=== PATIENT | female | born 1965 | race Two or more races ===

== ENCOUNTER → 2020-06-01 10:16 | Outpatient (BNVA) | payer MEDICARE, MEDICAID, SELFPAY | PROVIDERS: PCP Internal Medicine; Referring Provider Internal Medicine; Visit Provider Dietitian, Registered | DX: Z76.89 Persons encountering health services in other specified circumstances (principal) ==

== ENCOUNTER → 2020-07-08 10:58 | Outpatient (BNVA) | payer MEDICARE, MEDICAID, SELFPAY | PROVIDERS: PCP Internal Medicine; Visit Provider Dietitian, Registered ==

== ENCOUNTER → 2020-08-05 11:12 | Outpatient (BNVA) | payer MEDICARE, MEDICAID, SELFPAY | PROVIDERS: PCP Internal Medicine; Visit Provider Dietitian, Registered ==

== ENCOUNTER → 2021-04-20 11:00 | Outpatient (BNVA) | payer MEDICARE, MEDICAID, SELFPAY | PROVIDERS: PCP Internal Medicine; Visit Provider Nurse Practitioner Family | DX: M47.816 Spondylosis without myelopathy or radiculopathy, lumbar region (principal); M53.3 Sacrococcygeal disorders, not elsewhere classified; M17.0 Bilateral primary osteoarthritis of knee | CPT/HCPCS: 99202 ==

== ENCOUNTER 2021-05-10 06:34 | Outpatient (REF) | payer MEDICARE, MEDICAID, SELFPAY ==
--- NOTE | ~2021-05-10 | FL_ITS ---
EXAMINATION: XR FLUOROSCOPY WITH IMAGES CLINICAL INFORMATION: M17.0 - Bilateral primary osteoarthritis of knee COMPARISON: None. TECHNIQUE: Fluoroscopy performed by Dr. Kuldeep Calvin. Fluoroscopy time: 0.2 minutes DAP: 2.0 Gycm2 Images: 2 FINDINGS: There are spinal needles adjacent to the distal femoral shaft, medial and lateral sides, mid depth. There is a spinal needle adjacent to the proximal tibia on medial side mid depth. FL/FL guidance in treatment room IMPRESSION: Fluoroscopy for pain management procedures.
== END 2021-05-10 06:35 | disposition home or self-care (01) ==
LOC: HO.RADIR 06:34
PROVIDERS: Visit Provider Anesthesiology
DX: M17.0 Bilateral primary osteoarthritis of knee (principal); M47.816 Spondylosis without myelopathy or radiculopathy, lumbar region; M53.3 Sacrococcygeal disorders, not elsewhere classified
CPT/HCPCS: 64454

== ENCOUNTER → 2021-05-17 10:50 | Outpatient (BNVA) | payer MEDICARE, MEDICAID, SELFPAY | PROVIDERS: PCP Internal Medicine; Visit Provider Nurse Practitioner Family | DX: M47.816 Spondylosis without myelopathy or radiculopathy, lumbar region (principal); M53.3 Sacrococcygeal disorders, not elsewhere classified; M17.0 Bilateral primary osteoarthritis of knee | CPT/HCPCS: 99212 ==

== ENCOUNTER 2021-06-14 05:54 | Outpatient (REF) | payer MEDICARE, MEDICAID, SELFPAY | END 2021-06-14 05:55 | disposition home or self-care (01) | LOC: HO.RADIR 05:54 | PROVIDERS: Visit Provider Anesthesiology | DX: Z13.89 Encounter for screening for other disorder (principal) ==

== ENCOUNTER 2021-06-21 06:51 | Outpatient (REF) | payer MEDICARE, MEDICAID, SELFPAY ==
--- NOTE | ~2021-06-21 | FL_ITS ---
EXAMINATION: XR FLUOROSCOPY WITH IMAGES CLINICAL INFORMATION: Bilateral primary osteoarthritis COMPARISON: None. TECHNIQUE: Fluoroscopy performed by CHANTAL Phillips. Fluoroscopy time: 0.2 minutes DAP: 1.88 Gycm2 Images: 2 FINDINGS: AP and lateral views were obtained and reveals needle position of the medial and lateral cortex distal femur and medial proximal tibial cortex for pain management. There is severe loss of lateral compartment and mild loss of medial and patellofemoral compartment joint space with periarticular spurring. No fracture seen. FL/FL guidance in treatment room IMPRESSION: Moderate to severe degenerative changes lateral and mild degenerative changes patellofemoral and medial compartment right knee. Fluoroscopy was provided for referring physician for pain management.
== END 2021-06-21 06:52 | disposition home or self-care (01) ==
LOC: HO.RADIR 06:51
PROVIDERS: Visit Provider Anesthesiology
DX: M47.816 Spondylosis without myelopathy or radiculopathy, lumbar region (principal); M53.3 Sacrococcygeal disorders, not elsewhere classified; M17.0 Bilateral primary osteoarthritis of knee
CPT/HCPCS: 64454

== ENCOUNTER → 2021-07-27 09:17 | Outpatient (BNVA) | payer MEDICARE, MEDICAID, SELFPAY | PROVIDERS: PCP Internal Medicine; Visit Provider Anesthesiology | DX: M47.816 Spondylosis without myelopathy or radiculopathy, lumbar region (principal); M53.3 Sacrococcygeal disorders, not elsewhere classified; M17.0 Bilateral primary osteoarthritis of knee | CPT/HCPCS: 99212 ==

== ENCOUNTER → 2021-10-18 14:52 | Outpatient (BNVA) | payer MEDICARE, MEDICAID, SELFPAY | PROVIDERS: PCP Internal Medicine; Visit Provider Nurse Practitioner Family | DX: Z13.89 Encounter for screening for other disorder (principal) ==

== ENCOUNTER 2022-01-02 11:51 | Outpatient (REF) | payer MEDICARE, MEDICAID, SELFPAY ==
--- NOTE | ~2022-01-02 | XR_ITS ---
EXAMINATION: XR AP STANDING VIEW OF BOTH KNEES XR SUNRISE AND LATERAL VIEWS OF THE RIGHT KNEE CLINICAL INFORMATION: Pain. COMPARISON: None. TECHNIQUE: AP standing view of both knees and lateral and sunrise views of the right knee. FINDINGS: There is narrowing of the right medial and lateral joint space compartments. There is narrowing of the medial joint space compartment of the left knee. There is spurring seen bilaterally. Lateral and sunrise views of the right knee demonstrate a small suprapatellar effusion. There is degenerative change with prominent spurring about the patellofemoral joint with some narrowing of the medial facet joint and with some articular irregularity undersurface of the patella. XR/XR knee RT 2V IMPRESSION: Significant degenerative change of the right patellofemoral joint. Narrowing with marginal spurring seen involving the right medial and lateral joint space compartments and left medial joint space compartment.
--- NOTE | ~2022-01-02 | XR_ITS ---
EXAMINATION: XR AP STANDING VIEW OF BOTH KNEES XR SUNRISE AND LATERAL VIEWS OF THE RIGHT KNEE CLINICAL INFORMATION: Pain. COMPARISON: None. TECHNIQUE: AP standing view of both knees and lateral and sunrise views of the right knee. FINDINGS: There is narrowing of the right medial and lateral joint space compartments. There is narrowing of the medial joint space compartment of the left knee. There is spurring seen bilaterally. Lateral and sunrise views of the right knee demonstrate a small suprapatellar effusion. There is degenerative change with prominent spurring about the patellofemoral joint with some narrowing of the medial facet joint and with some articular irregularity undersurface of the patella. XR/XR knee standing BI IMPRESSION: Significant degenerative change of the right patellofemoral joint. Narrowing with marginal spurring seen involving the right medial and lateral joint space compartments and left medial joint space compartment.
== END 2022-01-02 11:52 | disposition home or self-care (01) ==
LOC: HO.HOSX 11:51
PROVIDERS: Visit Provider Orthopaedic Surgery
DX: M17.11 Unilateral primary osteoarthritis, right knee (principal); E11.9 Type 2 diabetes mellitus without complications
CPT/HCPCS: 73560; 73565; 99202

== ENCOUNTER → 2022-06-13 09:57 | Outpatient (BNVA) | payer MEDICARE, MEDICAID, SELFPAY | PROVIDERS: PCP Physician Assistant; Visit Provider Orthopaedic Surgery | DX: Z13.89 Encounter for screening for other disorder (principal) ==

== ENCOUNTER 2022-08-25 14:00 | Outpatient (RCR) | payer MEDICARE, MEDICAID, SELFPAY ==
--- NOTE | 2022-06-09 12:33 | MHC.PT.EP ---
[facility] [place] Office [place] Office [place] Office [address] Iman Balderas [address] [phone] F: [phone] F: [phone] F: [phone] F: [phone] Physical Therapy Plan of Care Date of Evaluation: Date of Surgery: Diagnosis: RIGHT KNEE PAIN Assessment: 57 YO FEMALE REF TO PT FOR Rt KNEE PAIN/ OA. SHE IS DISABLED, CURRENTLY AMB W A CANE, AND RESIDES ALONE IN A 2ND FLOOR APT. 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 Pt'S GOAL IS TO LOSE WEIGHT AND ADDRESS STRENGTH/ STABIITY FOR Rt LE W RESPECT TO Rt KNEE Jt SXS W HER ULTIMATE GOAL OF A Rt TKA. OBJECTIVE FINDINGS: LIMITED AND PAINFULL ROM Rt KNEE/ HIP; DECR LUMBOPELVIC/ PROX LE STRENGTH, (+) Rt PF OA INCR PAIN, (+) UEs COMPENSATION WITH TRANSFERS, AND ALTERED GAIT MECHANICS WITH A CANE. Pt WOULD BENEFIT FROM A TRIAL OF PT TO ADDRESS THE ABOVE FINDINGS, DEV A HEP, AND POSSIBLY IMPROVE GAIT EFFICIENCY/ FUNCT MOB. Frequency and Duration: The patient will be seen 2 x WK x 5 WKS Short Term Goals: *DECR Rt KNEE PAIN IMPROVE LEs USAGE W TRANSFERS/ TRANSITIONAL MVMTS *INITIATE HEP *IMPROVE Rt HS/ CALF/ PSOAS SOFT TISSUE FLEXIB Welcome Hostess Goals: *Pt INDEP W PROGR HEP AND SELF-SX MGMT STRATEGIES *Pt DEMON IMPROVED EFFICIENCY OF GAIT MECH AND TRANSFERS *IMPROVED LEFI SCORE (AT EVAL ) Treatment Plan: Modalities to reduce pain, spasms and effusion. Manual therapy to restore motion and function. Therapeutic exercise to improve strength and flexibility. Neuromuscular re-education for posture and balance. Therapeutic activities to return to functional activities of daily living. Electronically signed by: BERNARDO EARLYPT Please sign and return to therapist. Thank you for your referral.
--- NOTE | 2022-08-25 15:12 | MHC.PT.DC ---
[facility] [place] Office [place] Office [place] Office [address] Iman Balderas [address] [phone] F: [phone] F: [phone] F: [phone] F: [phone] Physical Therapy Discharge Report Diagnosis: RIGHT KNEE PAIN Date of Surgery: Date of Evaluation: 06/09/22 Date of Discharge: 08/25/22 Treatments to Date: 15 Cancellations to Date: 7 No Shows to Date: 0 Discharge Status: Achieved Goals Improved Function Independent with HEP Discharge Summary: Pt MET HER PT GOALS TO MAX POTENTIAL AT THIS TIME-> SHE DEMON IMPROVED LE AND LUMBOPELVIC STRENGTH, MORE EFFICIENT GAIT (LEVEL AND STAIRS) AND TRANSFERS- SHE IS INDEP AND COMPLIANT W HER HEP AND DEMON IMPROVED LEFI SCORE. ALTHOUGH SHE HAS RESIDUAL Rt PF/ KNEE OA Jt PAIN, IT HAS DECR IN INTENSITY AND DURATION. Electronically signed by: BERNARDO EARLY,PT Please sign and return to therapist. Thank you for your referral.
== END 2022-08-25 15:12 | disposition home or self-care (01) ==
LOC: HO.PT 14:00
PROVIDERS: PCP Physician Assistant; Visit Provider Orthopaedic Surgery
DX: M17.11 Unilateral primary osteoarthritis, right knee (principal)
CPT/HCPCS: 97110; 97140; 97162; 97530

== ENCOUNTER → 2022-12-14 14:19 | Outpatient (BNVA) | payer MEDICARE, MEDICAID, SELFPAY | PROVIDERS: PCP Physician Assistant; Visit Provider Orthopaedic Surgery ==

== ENCOUNTER 2023-01-10 10:11 | Outpatient (REF) | payer MEDICARE, MEDICAID, SELFPAY | END 2023-01-10 10:12 | disposition home or self-care (01) | LOC: HO.SH 10:11 | PROVIDERS: Visit Provider Physician Assistant | DX: Z01.118 Encounter for examination of ears and hearing with other abnormal findings (principal); H90.A12 Conductive hearing loss, unilateral, left ear with restricted hearing on the contralateral side; H90.A31 Mixed conductive and sensorineural hearing loss, unilateral, right ear with restricted hearing on the contralateral side | CPT/HCPCS: 92557; 92567 ==

== ENCOUNTER 2023-03-08 09:55 | Outpatient (AMB) | payer MEDICARE, MEDICAID, SELFPAY ==
--- NOTE | 2023-03-08 10:10 | MHC.OFFVIS ---
Intake Intake Visit Reasons: OV - Discuss RT TKA - Booked 05/08/23 Intake Note: Leanne is a 58 year old female who presents today to discuss Right Total Knee Arthroplasty. She is already booked for a pre-op appt on 05/03/23 and surgery is scheduled for 05/08/2023. Allergies latex [LATEX] Allergy (Unknown, Verified 03/08/23 10:11) SWELLING Medication List - Last Reconciled 03/08/23 by Philly Marcial RN albuterol sulfate 2.5 mg inhalation TID atorvastatin 40 mg PO BEDTIME budesonide-formoterol 160-4.5 mcg/actuation (Symbicort) inhalation bupropion HCl 300 mg PO DAILY estradiol 1 patch topical 2XW fluticasone propionate 50 mcg/actuation 2 sprays intranasal DAILY fluticasone propionate 110 mcg/actuation (Flovent HFA) inhalation ipratropium bromide intranasal lisinopril 2.5 mg PO DAILY metformin 500 mg PO BID primidone mg PO semaglutide (Ozempic) 2 mg subcut QWEEK tramadol 50 mg PO TID PRN umeclidinium 62.5 mcg/actuation (Incruse Ellipta) 1 inh inhalation DAILY HPI OV - Discuss RT TKA - Booked 05/08/23 HPI Details Leanne is a 58 year old Diabetic woman who presents to discuss her right TKA. She is scheduled for surgery and some questions about the procedure. She is scheduled for a pre-op on 05/03/23 & a right TKA on 05/08/23. She says her pain has slightly improved and she is able to walk around her local park more comfortably. Her surgery had been postponed in the past due to her BMI, but she has been working on weight management and has lost 20+lbs. [facility] Medical History Mixed hyperlipidemia Occipital neuralgia Allergic rhinitis Gastro-esophageal reflux disease without esophagitis Depression Bilateral hearing loss DDD (degenerative disc disease), lumbar Anxiety Unspecified asthma, uncomplicated Unspecified osteoarthritis, unspecified site Vitamin D deficiency Degenerative joint disease of knee Chronic pain Chronic right-sided low back pain with sciatica Adenoma Surgical History H/O: hysterectomy S/P right knee arthroscopy Social History Current occupational status: disabled Review of Systems Const All systems reviewed & are unremarkable except as noted in HPI and below Physical Exam Const General: no acute distress, alert and awake Orientation/consciousness: patient oriented x3 HEENT Head: Yes normocephalic and Yes atraumatic Eyes EOM: EOMs intact bilaterally Resp Effort & Inspection: normal respiratory effort and able to speak in complete sentences Cardio Jugular venous distension: no JVD Skin General skin exam: turgor normal Rashes: no rashes Neuro General: patient oriented x3 Extrem Other: Right Knee: 15 degree valgus mal-alignment TTP along lateral compartment, most prominent when walking antalgic gait Psych Appearance: grossly normal Affect: normal affect Attitude: cooperative Results Reviewed Results Reviewed: I personally reviewed relevant radiographs. Severe lateral compartment OA of the right knee. Assessment & Plan Assessment & Plan (1) Osteoarthritis of right knee: Code(s): M17.11 - Unilateral primary osteoarthritis, right knee Plan: This is a 58 year old woman with severe right knee OA with a valgus mal-alignment. Her BMI has decreased to 40. She has pain with daily activity, worse with ambulation or using stairs, and feels limited in her ADLs. She has failed other conservative treatment options, including a nerve block in the past. I discussed arthroplasty with her. . I discussed the risks, benefits, and alternatives including, but not limited to, the risk of pain, infection, stiffness, need for further surgery as well as potential medical complications such as blood clots, pulmonary embolism and cardiac complications. I discussed the recovery timeline and process as well as the importance of PT. Leanne is a good candidate for this surgery, and she wishes to proceed with this decision. She is a Diabetic and I ordered a new HgA1c prior to surgery. (2) Type 2 diabetes mellitus without complications: Code(s): E11.9 - Type 2 diabetes mellitus without complications Plan Scribed for Solitario Soria MD by Errol Quezada, medical assistant prn, on 03/08/23 at 10:25 AM, EST. Orders: Orders Hemoglobin A1c 03/08/23 Z01.812 - Encounter for preprocedural laboratory examination Coding Level of Care Code Est Pt Level 4 (60199) Diagnoses Osteoarthritis of right knee M17.11 Type 2 diabetes mellitus without complications E11.9
== END 2023-03-08 10:28 | disposition home or self-care (01) ==
PROVIDERS: PCP Physician Assistant; Visit Provider Orthopaedic Surgery
DX: M17.11 Unilateral primary osteoarthritis, right knee (principal)
CPT/HCPCS: 99214

== ENCOUNTER → 2023-03-08 09:55 | Outpatient (BNVA) | payer MEDICARE, MEDICAID, SELFPAY | PROVIDERS: PCP Physician Assistant; Visit Provider Orthopaedic Surgery | DX: M17.11 Unilateral primary osteoarthritis, right knee (principal); E11.9 Type 2 diabetes mellitus without complications | CPT/HCPCS: 99212 ==

== ENCOUNTER → 2023-05-03 13:00 | Outpatient (BNVA) | payer MEDICARE, MEDICAID, SELFPAY | PROVIDERS: PCP Physician Assistant; Visit Provider Physician Assistant ==

== ENCOUNTER 2023-05-08 05:58 | Day surgery (SDC) | payer MEDICARE, MEDICAID, SELFPAY ==
[2023-05-01 12:52] VITALS: BP 140/62; PULSE 70; RESP 16; O2SAT 99; BMI 42.4
--- NOTE | 2023-05-01 13:05 | HO.ANESPROP2 ---
Documented by User: Elizabeth Beck NP 05/07/23 09:33 HPI - Anesthesia Eval Consult details Narrative: 58yo F for Right Knee Replacement Total, 05/08/23 Medically optimized per PCP No recent illness No CP/SOB with stairs. Actvity limited to pain only. Asthma. Well controlled with daily inhaler. Albuterol very rare. GERD r/t hx of lap band. Diet controlled Anesthesia Pre-Procedure Meds Is the patient on any of the following meds?: Any other SGL-1 drugs or drugs that delay gastric emptying (RYBELSUS PO. INSTRUCTED LAST DOSE 05/05) [facility] Active Problems Active Problems: All Active Problems (Updated 05/01/23 @ 12:30 by Nichole Rodriguez RN) Osteoarthritis of right knee (Acute) Osteoarthritis of knees, bilateral (Acute) Sacroiliac joint pain (Acute) Spondylosis of lumbar region without myelopathy or radiculopathy (Acute) Type 2 diabetes mellitus without complications (Acute) Morbid (severe) obesity due to excess calories (Acute) Past Medical History Medical History Hx of vertigo Hiatal hernia Claustrophobia Carpal tunnel syndrome on both sides Numbness Sleep apnea History of cyst of breast Asthma Back pain Mixed hyperlipidemia Occipital neuralgia Allergic rhinitis Gastro-esophageal reflux disease without esophagitis Depression Bilateral hearing loss DDD (degenerative disc disease), lumbar Anxiety Unspecified asthma, uncomplicated Unspecified osteoarthritis, unspecified site Vitamin D deficiency Degenerative joint disease of knee Chronic pain Chronic right-sided low back pain with sciatica Adenoma Family History Family history of problems with anesthesia: No Surgical History Surgical History Hx of laparoscopic gastric banding H/O colonoscopy Status post surgery involving ear History of uvulectomy Hx of section H/O: hysterectomy S/P right knee arthroscopy History of Problems with Anesthesia: No Social History Social History Are you a primary transition of care specialist to a significant other at home: No Do you presently have visiting nurse or other home services: No Patient Tobacco Use Status: Former Tobacco user Quit Date: 2019 Use of substances other than those prescribed or required for medical reasons: Yes Substance Use Frequency: Daily Have you been hit, kicked, punched, or otherwise hurt by someone within the past year? If so, by whom?: No Advance Directives: No Advance Directives Information Provided: Yes Advance Directives on File: No Recently lost weight without trying: No Eating poorly because of decreased appetite: No Nutrition Risks: No Nutritional Risk Patient : No : No Poor oral hygiene: Yes (missing teeth upper and lower) Current occupational status: disabled Meds Allergies Allergy/AdvReac Type Severity Reaction Status Date / Time latex [LATEX] Allergy Unknown SWELLING Verified 05/08/23 06:12 Home Medications Medication Instructions Recorded Confirmed Last Taken Type lisinopril 2.5 mg tablet 2.5 mg PO DAILY 06/01/20 05/03/23 Unknown History metformin 500 mg tablet 500 mg PO BID 06/01/20 05/03/23 Unknown History primidone 50 mg tablet 50 mg PO DAILY 06/01/20 05/03/23 Unknown History tramadol 50 mg tablet 50 mg PO TID PRN Pain 06/01/20 05/03/23 Unknown History atorvastatin 40 mg tablet 40 mg PO BEDTIME 05/17/21 05/03/23 Unknown History bupropion HCl 300 mg 24 hr tablet, 300 mg PO DAILY 05/17/21 05/03/23 05/08/23 History extended release albuterol sulfate 2.5 mg/3 mL 2.5 mg inhalation TID PRN 03/08/23 05/03/23 Unknown History (0.083 %) solution for nebulization Shortness Of Breath Or Wheezing budesonide-formoterol HFA 160 1 inh inhalation BID 03/08/23 05/03/23 Unknown History mcg-4.5 mcg/actuation aerosol inhaler (Symbicort) estradiol 0.05 mg/24 hr semiweekly 1 patch topical 2XW 03/08/23 05/03/23 Unknown History transdermal patch fluticasone propionate 110 1 puff inhalation BEDTIME 03/08/23 05/03/23 Unknown History mcg/actuation HFA aerosol inhaler (Flovent HFA) ipratropium bromide 42 mcg (0.06 2 spray intranasal DAILY 03/08/23 05/03/23 Unknown History %) nasal spray hydroxyzine HCl 25 mg tablet 25 mg PO BID Itching 05/01/23 05/03/23 05/08/23 History levocetirizine 5 mg tablet 5 mg PO DAILY 05/01/23 05/03/23 Unknown History montelukast 10 mg tablet 10 mg PO BEDTIME 05/01/23 05/03/23 Unknown History primidone 50 mg tablet 100 mg PO BEDTIME 05/01/23 05/03/23 05/08/23 History semaglutide 7 mg tablet (Rybelsus) 7 mg PO DAILY 05/01/23 05/07/23 05/05/23 History Exam Height,Weight and Vital Signs: Height 5 ft Weight 98.43 kg Last Vital Signs Pulse 70 05/01/23 12:52 Resp 16 05/01/23 12:52 BP 140/62 H 05/01/23 12:52 Pulse Ox 99 05/01/23 12:52 O2 Del Method Room Air 05/01/23 12:52 Pertinent Lab Results Pertinent Lab Results: Lab Results 05/01/23 05/01/23 05/01/23 Range/Units 13:00 14:04 14:07 WBC 5.4 (4.8-10.8) X10*3/uL RBC 4.21 (4.20-5.50) X10*6/uL Hgb 11.7 L (12.0-16.0) g/dl Hct 38.3 (37.0-47.0) % MCV 91.0 (80.0-98.0) fL MCH 27.8 (27.0-33.0) pg MCHC 30.5 L (31.0-35.0) g/dl RDW 14.8 (11.0-16.0) % Plt Count 285 (160-400) X10*3/uL MPV 10.4 (9.4-12.3) fL Immature Gran % (Auto) 0.2 (0.0-0.4) % Neut % (Auto) 56.9 (45-73) % Lymph % (Auto) 34.1 (20-40) % [place] % (Auto) 6.5 (2-11) % Eos % (Auto) 1.9 (0-4) % Baso % (Auto) 0.4 (0-2) % Lymph # (Auto) 1.8 (1.2-4.9) X10*3/uL [place] # (Auto) 0.4 (0.1-1.2) X10*3/uL Eos # (Auto) 0.1 (0.0-0.4) X10*3/uL Baso # (Auto) 0.0 (0.0-0.2) X10*3/uL Abs Immat Gran (auto) 0.01 (0.00-0.03) X10*3/uL Absolute Neuts (auto) 3.1 (2.0-8.3) x10*3/uL Absolute Nucleated RBC 0.000 (0.0-0.012) X10*3/uL Nucleated RBC % (auto) 0.0 (0.0-0.2) /100WBC Sodium 140 (135-145) mmol/L Potassium 4.5 (3.3-5.1) mmol/L Chloride 104 (96-108) mmol/L Carbon Dioxide 29 (22-29) mmol/L Anion Gap 12 (12-20) BUN 13 (9-16) mg/dL Creatinine 0.75 (0.5-1.4) mg/dL Estim Creat Clear Calc 83.9 Estimated GFR > 60 Random Glucose 95 (60-115) mg/dL Estimat Average Glucose 114 mg/dL Hemoglobin A1c % 5.6 (<6.0) % Calcium 9.1 (8.4-10.2) mg/dL Nasal Screen MRSA (PCR) NEGATIVE (Negative) Nasal S. aureus Screen NEGATIVE (Negative) Nasal MRSA/S.aureus Interp SEE NOTE Blood Type A Positive Antibody Screen NEGATIVE Narrative Narrative: EKG 04/2023 NSR @ 66 Airway TM Dist: >3cm Neck ROM: Full Partial: Upper (Doesn't wear) and Lower Heart: RRR Lungs: CTAB Assessment and Plan Assessment Anesthesia Assessment: Anesthesia Plan Discussed and PAT Visit Final Anesthetic Review Family History of Problems with Anesthesia: No History of Problems with Anesthesia: No Documented by User: Elmer Anderson MD 05/08/23 07:51 HPI - Anesthesia Eval Anesthesia Pre-Procedure Meds If Yes to any meds - educate patient: Pt education - increased risk of aspiration PMFSH Past Medical History Medical History Hx of vertigo Hiatal hernia Claustrophobia Carpal tunnel syndrome on both sides Numbness Sleep apnea History of cyst of breast Asthma Back pain Mixed hyperlipidemia Occipital neuralgia Allergic rhinitis Gastro-esophageal reflux disease without esophagitis Depression Bilateral hearing loss DDD (degenerative disc disease), lumbar Anxiety Unspecified asthma, uncomplicated Unspecified osteoarthritis, unspecified site Vitamin D deficiency Degenerative joint disease of knee Chronic pain Chronic right-sided low back pain with sciatica Adenoma Surgical History Surgical History Hx of laparoscopic gastric banding H/O colonoscopy Status post surgery involving ear History of uvulectomy Hx of section H/O: hysterectomy S/P right knee arthroscopy Social History Social History Are you a primary transition of care specialist to a significant other at home: No Do you presently have visiting nurse or other home services: No Patient Tobacco Use Status: Former Tobacco user Quit Date: 2019 Use of substances other than those prescribed or required for medical reasons: Yes Substance Use Frequency: Daily Have you been hit, kicked, punched, or otherwise hurt by someone within the past year? If so, by whom?: No Advance Directives: No Advance Directives Information Provided: Yes Advance Directives on File: No Recently lost weight without trying: No Eating poorly because of decreased appetite: No Nutrition Risks: No Nutritional Risk Patient : No : No Poor oral hygiene: Yes (missing teeth upper and lower) Current occupational status: disabled Meds Allergies Allergy/AdvReac Type Severity Reaction Status Date / Time latex [LATEX] Allergy Unknown SWELLING Verified 05/08/23 06:12 Home Medications Medication Instructions Recorded Confirmed Last Taken Type lisinopril 2.5 mg tablet 2.5 mg PO DAILY 06/01/20 05/03/23 Unknown History metformin 500 mg tablet 500 mg PO BID 06/01/20 05/03/23 Unknown History primidone 50 mg tablet 50 mg PO DAILY 06/01/20 05/03/23 Unknown History tramadol 50 mg tablet 50 mg PO TID PRN Pain 06/01/20 05/03/23 Unknown History atorvastatin 40 mg tablet 40 mg PO BEDTIME 05/17/21 05/03/23 Unknown History bupropion HCl 300 mg 24 hr tablet, 300 mg PO DAILY 05/17/21 05/03/23 05/08/23 History extended release albuterol sulfate 2.5 mg/3 mL 2.5 mg inhalation TID PRN 03/08/23 05/03/23 Unknown History (0.083 %) solution for nebulization Shortness Of Breath Or Wheezing budesonide-formoterol HFA 160 1 inh inhalation BID 03/08/23 05/03/23 Unknown History mcg-4.5 mcg/actuation aerosol inhaler (Symbicort) estradiol 0.05 mg/24 hr semiweekly 1 patch topical 2XW 03/08/23 05/03/23 Unknown History transdermal patch fluticasone propionate 110 1 puff inhalation BEDTIME 03/08/23 05/03/23 Unknown History mcg/actuation HFA aerosol inhaler (Flovent HFA) ipratropium bromide 42 mcg (0.06 2 spray intranasal DAILY 03/08/23 05/03/23 Unknown History %) nasal spray hydroxyzine HCl 25 mg tablet 25 mg PO BID Itching 05/01/23 05/03/23 05/08/23 History levocetirizine 5 mg tablet 5 mg PO DAILY 05/01/23 05/03/23 Unknown History montelukast 10 mg tablet 10 mg PO BEDTIME 05/01/23 05/03/23 Unknown History primidone 50 mg tablet 100 mg PO BEDTIME 05/01/23 05/03/23 05/08/23 History semaglutide 7 mg tablet (Rybelsus) 7 mg PO DAILY 05/01/23 05/07/23 05/05/23 History Exam Airway Mallampati Class: II Assessment and Plan Final Anesthetic Review NPO: Yes ASA Class: III Final Preanesthetic Review: No Changes in Pt Med Stat, Meds/Allgs Chart Reviewed, Consent Obtained/Reviewed and Anes Risks/Benef Reviewed Patient Risk: Intermediate Procedure Risk: Intermediate Anesthetic Plan Anesthetic Plan: Spinal, Regional Block and Agree w/ Assess. and Plan Disposition: Standard PACU
[2023-05-01 14:09] LABS: MANUAL DIFF FLAG NO
[2023-05-01 14:47] LABS: Basophils Percent Auto 0.4 % (0-2); Eosinophils Absolute Auto 0.1 X10*3/uL (0.0-0.4); Eosinophils Percent Auto 1.9 % (0-4); Hematocrit 38.3 % (37.0-47.0); Hemoglobin 11.7 g/dl (12.0-16.0); Imm Gran Abs Auto 0.01 X10*3/uL (0.00-0.03); Imm Gran Pct Auto 0.2 % (0.0-0.4); Lymphocytes Absolute Auto 1.8 X10*3/uL (1.2-4.9); Lymphocytes Percent Auto 34.1 % (20-40); Mean Corpuscular HGB Conc 30.5 g/dl (31.0-35.0); Mean Corpuscular Hemoglobin 27.8 pg (27.0-33.0); Mean Platelet Volume 10.4 fL (9.4-12.3); Monocytes Absolute Auto 0.4 X10*3/uL (0.1-1.2); Monocytes Percent Auto 6.5 % (2-11); Neutrophils Absolute Auto 3.1 x10*3/uL (2.0-8.3); Neutrophils Percent Auto 56.9 % (45-73); Platelet Count 285 X10*3/uL (160-400); Red Blood Count 4.21 X10*6/uL (4.20-5.50); Red Cell Distribution Width 14.8 % (11.0-16.0); White Blood Count 5.4 X10*3/uL (4.8-10.8)
[2023-05-01 15:06] LABS: Estimated Average Glucose 114 mg/dL; Hemoglobin A1c % 5.6 % (<6.0)
[2023-05-01 15:11] LABS: Anion Gap 12 (12-20); Blood Urea Nitrogen 13 mg/dL (9-16); Calcium 9.1 mg/dL (8.4-10.2); Carbon Dioxide 29 mmol/L (22-29); Chloride 104 mmol/L (96-108); Creatinine Clr Calc Pharmacy 83.9; Estimated Glomerular Filt Rate > 60; Glucose Random 95 mg/dL (60-115); Potassium 4.5 mmol/L (3.3-5.1); Sodium 140 mmol/L (135-145)
[2023-05-01 15:51] LABS: MRSA Nasal PCR NEGATIVE (Negative); SA Nasal PCR NEGATIVE (Negative)
[2023-05-08] VITALS (18 sets, daily range): BP systolic 76–168; BP diastolic 41–79; PULSE 62–75; RESP 16–20; TEMP 36–36.8; O2SAT 94–100; BMI 40.9
--- NOTE | ~2023-05-08 | XR_ITS ---
EXAMINATION: XR KNEE, RIGHT CLINICAL INFORMATION: Right total knee arthroplasty COMPARISON: None available. TECHNIQUE: Portable frontal and crosstable lateral views of the right knee. FINDINGS: There is a right total knee replacement with patellar resurfacing in anatomic alignment and position. Skin rupert and soft tissue changes are consistent with recent surgery XR/XR knee RT 2V IMPRESSION: Right total knee arthroplasty in anatomic alignment and position.
[2023-05-08] MEDS: Lactated Ringers 1,000 ML 100 ML IVCONT ×3 (06:45→23:04)
[2023-05-08 06:50] LABS: Glucose, Whole Blood 122 mg/dL (60-115)
--- NOTE | 2023-05-08 07:21 | MHC.SHP ---
Pre-Procedural Eval Section A Date of Service: 05/08/23 The patient is an INPATIENT: No Changes since office visit: No Cold of Flu in the past 2 weeks, No New Medical Problems, No Changes in Medication and No Patient answered all questions The History & Physical has been completed within 30 days and I have reviewed it.: Yes Section B Chief Complaint: Unilateral primary osteoarthritis, right knee Allergies: Allergies Allergy/AdvReac Type Severity Reaction Status Date / Time latex [LATEX] Allergy Unknown SWELLING Verified 05/08/23 06:12 Plan I have reviewed the history and physical and performed a pertinent physical examination on my patient. No changes have occurred unless specified. Time Spent With Patient Time: Total time managing care of this patient today ____ minutes.
--- NOTE | 2023-05-08 09:08 | PM.OP ---
Brief Operative Note Date of Service: 05/08/23 Pre-op diagnosis: Right knee OA Post-op diagnosis: same Procedure: Right TKA Implants: Elder press fit cruciate retaining Surgeon: Solitario Soria MD Anesthesia: GETA Was an Learning And Development Director used for this Procedure?: Yes Learning And Development Director: Mira Morrow Estimated blood loss (mL): 20 Tourniquet time (min): 45 IV fluids (mL): 800 Pathology: other Condition: stable Disposition: PACU
--- NOTE | 2023-05-08 11:39 | PHA.MEDREC ---
Pharmacy Consult ? Medication Reconciliation Pharmacy has completed the medication reconciliation.pharmacy has reviewed the med rec done by nursing
[2023-05-08] MEDS: Acetaminophen 325 MG TABLET 650 MG PO (12:53)
[2023-05-08] MEDS: oxyCODONE HCl Immed Release 5 MG TABLET PO ×2 (13:34→15:16)
[2023-05-08] MEDS: ceFAZolin Sodium/Dextrose,Iso 2 GM/50 ML PIGGYBACK IV (13:38)
[2023-05-08] MEDS: HYDROmorphone HCl 0.5 MG/0.5 ML SYRINGE 0.25 MG IVPUSH (14:06)
--- NOTE | 2023-05-08 14:16 | HO.PM.IMCN ---
History of Present Illness Data of Consult Service Date: 05/08/23 Requesting physician: Mira Morrow Primary Care Provider: CHANTAL Villalta Reason for consult: medical management 58-year-old female with history of obstructive sleep apnea compliant with CPAP, GERD, occipital neuralgia, hyperlipidemia, asthma, chronic low back pain, [id number] type 2 diabetes admitted to Orthopedic surgery for management of osteoarthritis of the right knee s/p right TKA with consult placed to hospitalist service for medical management of diabetes. She is reporting significant pain in the R knee. Was given oxycodone and dilaudid about 5 minutes ago. She otherwise has no complaints. There does not appear to be any acute medical issues. Review of Systems Review of Systems: Yes all other systems are reviewed and are negative [facility] Medical History Hx of vertigo Hiatal hernia Claustrophobia Carpal tunnel syndrome on both sides Numbness Sleep apnea History of cyst of breast Asthma Back pain Mixed hyperlipidemia Occipital neuralgia Allergic rhinitis Gastro-esophageal reflux disease without esophagitis Depression Bilateral hearing loss DDD (degenerative disc disease), lumbar Anxiety Unspecified asthma, uncomplicated Unspecified osteoarthritis, unspecified site Vitamin D deficiency Degenerative joint disease of knee Chronic pain Chronic right-sided low back pain with sciatica Adenoma Surgical History Hx of laparoscopic gastric banding H/O colonoscopy Status post surgery involving ear History of uvulectomy Hx of section H/O: hysterectomy S/P right knee arthroscopy Social History Are you a primary career education teacher to a significant other at home: No Do you presently have visiting nurse or other home services: No Patient Tobacco Use Status: Former Tobacco user Quit Date: 2019 Use of substances other than those prescribed or required for medical reasons: Yes Substance Use Frequency: Daily Have you been hit, kicked, punched, or otherwise hurt by someone within the past year? If so, by whom?: No Advance Directives: No Advance Directives Information Provided: Yes Advance Directives on File: No Recently lost weight without trying: No Eating poorly because of decreased appetite: No Nutrition Risks: No Nutritional Risk Patient : No : No Poor oral hygiene: Yes (missing teeth upper and lower) Current occupational status: disabled Meds Allergies Allergy/AdvReac Type Severity Reaction Status Date / Time latex [LATEX] Allergy Unknown SWELLING Verified 05/08/23 06:12 Active Medications: Current Medications Acetaminophen (Acetaminophen 325 Mg Tablet) 650 mg PO Q6H PRN PRN Reason: Pain, Mild (Pain Scale 1-3) Last Admin: 05/08/23 12:53 Dose: 650 mg Albuterol Sulfate (Albuterol Sulfate (0.083%) 2.5 Mg/3 Ml Vial.Neb) 2.5 mg INHALE TID PRN PRN Reason: Shortness Of Breath Or Wheezing Bupropion HCl (Bupropion Hcl Xl 300 Mg Tab.Er.24h) 300 mg PO DAILY [facility] Celecoxib (Celecoxib 200 Mg Capsule) 200 mg PO BID IRINA Docusate Sodium (Docusate Sodium 100 Mg Capsule) 100 mg PO BID [facility] Enoxaparin Sodium (Enoxaparin Sodium 40 Mg/0.4 Ml Syringe) 40 mg SUBCUT Q24H [facility] Fluticasone/Vilanterol (Fluticasone/Vilanterol 200/25 Blst.W.Dev) 1 puff INHALE RDAILY [facility] Hydromorphone HCl (Hydromorphone Hcl 0.5 Mg/0.5 Ml Syringe) 0.25 mg IVPUSH Q4H PRN; Protocol PRN Reason: Pain, Severe (Pain Scale 7-10) Last Admin: 05/08/23 14:06 Dose: 0.25 mg Hydroxyzine HCl (Hydroxyzine Hcl 25 Mg Tablet) 25 mg PO BID [facility] Lactated Ringer's (Lr) 1,000 mls @ 100 mls/hr IVCONT .Q10H IRINA Stop: 05/09/23 09:15 Last Admin: 05/08/23 12:50 Dose: 100 mls/hr Ipratropium [place] (Ipratropium [place] Олег 0.06 % 15 Ml [place]) 2 spray NOSTRIL-B DAILY [facility] Montelukast Sodium (Montelukast Sodium 10 Mg Tablet) 10 mg PO BEDTIME [facility] Non-Formulary Medication (Fluticasone Propionate [Flovent Hfa]) 1 puff INHALE BEDTIME [facility] Non-Formulary Medication (Levocetirizine) 5 mg PO DAILY [facility] Non-Formulary Medication (Semaglutide [Rybelsus]) 7 mg PO DAILY [facility] Ondansetron HCl (Ondansetron Hcl 4 Mg/2 Ml Vial) 4 mg IVPUSH Q8H PRN PRN Reason: Nausea and Vomiting Oxycodone HCl (Oxycodone Hcl Immed Release 5 Mg Tablet) 5 mg PO Q4H PRN PRN Reason: Pain, Moderate(Pain Scale 4-6) Last Admin: 05/08/23 13:34 Dose: 5 mg Oxycodone HCl (Oxycodone Hcl Er 10 Mg Tab.Er.12h) 10 mg PO BID [facility] Primidone (Primidone 50 Mg Tablet) 100 mg PO BEDTIME [facility] Primidone (Primidone 50 Mg Tablet) 50 mg PO DAILY [facility] Sodium Chloride (0.9 % Sodium Chloride Flush 3 Ml Syringe) 3 ml IVFLUSH QSHIFT [facility] Home Medications Medication Instructions Recorded Confirmed Last Taken Type lisinopril 2.5 mg tablet 2.5 mg PO DAILY 06/01/20 05/03/23 Unknown History metformin 500 mg tablet 500 mg PO BID 06/01/20 05/03/23 Unknown History primidone 50 mg tablet 50 mg PO DAILY 06/01/20 05/03/23 Unknown History tramadol 50 mg tablet 50 mg PO TID PRN Pain 06/01/20 05/03/23 Unknown History atorvastatin 40 mg tablet 40 mg PO BEDTIME 05/17/21 05/03/23 Unknown History bupropion HCl 300 mg 24 hr tablet, 300 mg PO DAILY 05/17/21 05/03/23 05/08/23 History extended release albuterol sulfate 2.5 mg/3 mL 2.5 mg inhalation TID PRN 03/08/23 05/03/23 Unknown History (0.083 %) solution for nebulization Shortness Of Breath Or Wheezing budesonide-formoterol HFA 160 1 inh inhalation BID 03/08/23 05/03/23 Unknown History mcg-4.5 mcg/actuation aerosol inhaler (Symbicort) estradiol 0.05 mg/24 hr semiweekly 1 patch topical 2XW 03/08/23 05/03/23 Unknown History transdermal patch fluticasone propionate 110 1 puff inhalation BEDTIME 03/08/23 05/03/23 Unknown History mcg/actuation HFA aerosol inhaler (Flovent HFA) ipratropium bromide 42 mcg (0.06 2 spray intranasal DAILY 03/08/23 05/03/23 Unknown History %) nasal spray hydroxyzine HCl 25 mg tablet 25 mg PO BID Itching 05/01/23 05/03/23 05/08/23 History levocetirizine 5 mg tablet 5 mg PO DAILY 05/01/23 05/03/23 Unknown History montelukast 10 mg tablet 10 mg PO BEDTIME 05/01/23 05/03/23 Unknown History primidone 50 mg tablet 100 mg PO BEDTIME 05/01/23 05/03/23 05/08/23 History semaglutide 7 mg tablet (Rybelsus) 7 mg PO DAILY 05/01/23 05/07/23 05/05/23 History Physical Exam Vital Signs and Narrative: Vital Signs: Last Vital Signs Temp 96.8 F 05/08/23 12:11 Pulse 69 05/08/23 12:11 Resp 18 05/08/23 12:11 BP 106/58 L 05/08/23 12:11 Pulse Ox 98 05/08/23 12:11 O2 Del Method Room Air 05/08/23 12:11 BMI result Body Mass Index 40.9 Constitutional - Awake and Alert, No apparent distress Eyes - PERRLA, EOMI Cardiovascular - S1S2, RRR, No edema Respiratory - Normal lung expansion, Normal respiratory effort, No respiratory distress, CTA bilaterally Gastrointestinal - NT / ND; +BS; No rebound or guarding Extremities - no calf tenderness bilaterally, no swelling Musculoskeletal - R knee post-op bandage in place Skin - Warm/Dry Neurological - Alert & oriented x3 Psychological - Appropriate affect Results Labs 05/08/23 06:15 05/01/23 14:07 Labs: Laboratory Results - last 24 hr 05/08/23 06:43 POC Glucose 122 H Imaging Radiologist's Impressions: Impressions Knee X-Ray 05/08/23 09:36 IMPRESSION: Right total knee arthroplasty in anatomic alignment and position. Assessment and Plan (1) Osteoarthritis of right knee: Qualifiers: Osteoarthritis type: primary Qualified Code(s): M17.11 - Unilateral primary osteoarthritis, right knee Status: Acute Plan 58-year-old female with history of obstructive sleep apnea compliant with CPAP, GERD, occipital neuralgia, hyperlipidemia, asthma, chronic low back pain, [id number] type 2 diabetes admitted to Orthopedic surgery for management of osteoarthritis of the right knee s/p right TKA with consult placed to hospitalist service for medical management of diabetes. #R Knee OA s/p R TKA POD0 -plan per orthopedic surgery # [id number] type 2 diabetes -controlled last hemoglobin A1c 5.6% -POC glucose -diabetic diet -Humalog on sliding scale p.r.n. for hyperglycemia -hold metformin and semaglutide, resume on discharge # hypertension -blood pressure soft -resume lisinopril tomorrow a.m. if blood pressures improve # moderate persistent asthma -no acute exacerbation -continue maintenance inhalers, albuterol p.r.n. # HLD -statin #Chronic low back pain -on tramadol at home. -pain management per ortho surgery Thank you for allowing me to participate in this consult. Signing off at this time. Please do not hesitate to call for further questions or for any acute medical issues
[2023-05-08] MEDS: Acetaminophen 1,000 MG/100 ML PIGGYBACK 400 MG IV ×2 (15:25→21:17)
[2023-05-08 16:34] LABS: Glucose, Whole Blood 157 mg/dL (60-115)
[2023-05-08] MEDS: oxyCODONE HCl Immed Release 5 MG TABLET 10 MG PO ×2 (17:40→23:03)
[2023-05-08] MEDS: Insulin Lispro 100 UNIT/ML 3 ML VIAL SUBCUT (17:41)
[2023-05-08 20:25] LABS: Glucose, Whole Blood 132 mg/dL (60-115)
[2023-05-08] MEDS: Primidone 50 MG TABLET 100 MG PO (20:39)
[2023-05-08] MEDS: Montelukast Sodium 10 MG TABLET PO (20:39)
[2023-05-08] MEDS: Celecoxib 200 MG CAPSULE PO (20:39)
[2023-05-08] MEDS: HYDROmorphone HCl 0.5 MG/0.5 ML SYRINGE IVPUSH (20:40)
[2023-05-08] MEDS: Docusate Sodium 100 MG CAPSULE PO (20:40)
[2023-05-08] MEDS: hydrOXYzine HCL 25 MG TABLET PO (20:40)
[2023-05-08] MEDS: 0.9 % Sodium Chloride Flush 3 ML SYRINGE IVFLUSH (20:42)
[2023-05-08] MEDS: oxyCODONE HCl ER 10 MG TAB.ER.12H PO (21:17)
[2023-05-09] VITALS (7 sets, daily range): BP systolic 138–149; BP diastolic 63–69; PULSE 72–87; RESP 16–18; TEMP 36.4–37; O2SAT 92–98
[2023-05-09] MEDS: HYDROmorphone HCl 0.5 MG/0.5 ML SYRINGE IVPUSH ×4 (00:54→15:02)
[2023-05-09] MEDS: Acetaminophen 1,000 MG/100 ML PIGGYBACK 400 MG IV ×2 (03:04→08:00)
--- NOTE | 2023-05-09 06:22 | PC.NURSE ---
pt post-op day one. walked to the BR with walker, one assist, voided well. provided pain meds by eMar. CMS is present. continue to mornitor.
[2023-05-09 06:26] LABS: MANUAL DIFF FLAG NO
[2023-05-09 06:33] LABS: Basophils Percent Auto 0.4 % (0-2); Eosinophils Percent Auto 0.3 % (0-4); Hematocrit 32.8 % (37.0-47.0); Hemoglobin 10.4 g/dl (12.0-16.0); Imm Gran Abs Auto 0.02 X10*3/uL (0.00-0.03); Imm Gran Pct Auto 0.3 % (0.0-0.4); Lymphocytes Absolute Auto 1.2 X10*3/uL (1.2-4.9); Lymphocytes Percent Auto 17.5 % (20-40); Mean Corpuscular HGB Conc 31.7 g/dl (31.0-35.0); Mean Corpuscular Hemoglobin 28.8 pg (27.0-33.0); Mean Corpuscular Volume 90.9 fL (80.0-98.0); Mean Platelet Volume 10.5 fL (9.4-12.3); Monocytes Absolute Auto 0.8 X10*3/uL (0.1-1.2); Monocytes Percent Auto 11.9 % (2-11); Neutrophils Absolute Auto 4.8 x10*3/uL (2.0-8.3); Neutrophils Percent Auto 69.6 % (45-73); Platelet Count 256 X10*3/uL (160-400); Red Blood Count 3.61 X10*6/uL (4.20-5.50); Red Cell Distribution Width 14.4 % (11.0-16.0); White Blood Count 6.9 X10*3/uL (4.8-10.8)
[2023-05-09 06:43] LABS: Anion Gap 11 (12-20); Blood Urea Nitrogen 12 mg/dL (9-16); Calcium 8.5 mg/dL (8.4-10.2); Carbon Dioxide 25 mmol/L (22-29); Chloride 103 mmol/L (96-108); Estimated Glomerular Filt Rate > 60; Glucose Fasting 129 mg/dL (60-99); Potassium 3.8 mmol/L (3.3-5.1); Sodium 135 mmol/L (135-145)
--- NOTE | 2023-05-09 07:18 | PM.PNORT ---
Subjective Subjective Date of Service: 05/09/23 Interval history: POD1 s/p RTKA Patient is resting in bed comfortably No overnight events Pain is managed No additional complaints Physical Exam Vital Signs: Vital Signs: Last Vital Signs Temp 97.6 F 05/09/23 03:15 Pulse 72 05/09/23 03:15 Resp 18 05/09/23 03:15 BP 142/69 H 05/09/23 03:15 Pulse Ox 96 05/09/23 03:15 O2 Del Method CPAP 05/09/23 03:15 BMI result Body Mass Index 40.9 Const: General: cooperative, healthy appearing and no acute distress Resp: Effort & Inspection: normal respiratory effort and able to speak in complete sentences Cardio: Rate: regular rate Peripheral pulses: Peripheral pulses 2+ throughout GI: Palpation (GI): Soft to palpation Skin: Lesions: no lesions Rashes: no rashes Extrem: Other: Right knee dressing is c/d/i. Able to dorsi/plantar flex. Calf is supple and nontender. Sensation intact. Pedal pulse intact. JUSTIN device fxning properly holding pressure. Procedures Date of Service Date of Service: 05/09/23 Progress Note: A&P Assessment and plan (1) Status post total knee replacement, right: Status: Acute Assessment and Plan: Continue pain mgmnt Begin Lovenox for dvt ppx begin PT for RTKA Dispo planning-Pending PT eval, pain mgmnt Will need continued hospitalization for pain management and DMII post op management (2) Type 2 diabetes mellitus without complications: Status: Acute (3) Morbid (severe) obesity due to excess calories: Status: Acute Time Spent With Patient Time: Total time managing care of this patient today ____ minutes. Quality Stroke Does the patient have a stroke diagnosis?: No VTE Prior VTE?: No VTE Risk Level:: Medical - moderate - high VTE Device Contraindication: N/A - Device Ordered VTE Drug Contraindication: N/A - Med Ordered
[2023-05-09 07:34] LABS: Glucose, Whole Blood 134 mg/dL (60-115)
[2023-05-09] MEDS: Fluticasone/Vilanterol 200/25 BLST.W.DEV 1 PUFF INHALE (07:59)
[2023-05-09] MEDS: Enoxaparin Sodium 40 MG/0.4 ML SYRINGE SUBCUT (08:00)
[2023-05-09] MEDS: Celecoxib 200 MG CAPSULE PO ×2 (08:01→20:41)
[2023-05-09] MEDS: buPROPion HCl XL 300 MG TAB.ER.24H PO (08:01)
[2023-05-09] MEDS: oxyCODONE HCl Immed Release 5 MG TABLET 10 MG PO ×3 (08:01→17:12)
[2023-05-09] MEDS: Docusate Sodium 100 MG CAPSULE PO ×2 (08:01→20:41)
[2023-05-09] MEDS: oxyCODONE HCl ER 10 MG TAB.ER.12H PO ×2 (08:01→20:41)
[2023-05-09] MEDS: hydrOXYzine HCL 25 MG TABLET PO ×2 (08:01→20:42)
[2023-05-09] MEDS: Primidone 50 MG TABLET PO (08:02)
[2023-05-09] MEDS: Lactated Ringers 1,000 ML 100 ML IVCONT (09:13)
[2023-05-09 11:21] LABS: Glucose, Whole Blood 151 mg/dL (60-115)
--- NOTE | 2023-05-09 11:46 | P.OP_ITS ---
Operative Note Operative Note Date of Service: 05/08/23 Narrative: Date of Service: 05/08/23 Pre-op diagnosis: Right knee OA Post-op diagnosis: same Procedure: Right TKA Implants: [place] press fit cruciate retaining Surgeon: Solitario Soria MD Anesthesia: NELLAA Was an Support Services Rep used for this Procedure?: Yes Support Services Rep: Mira Morrow Estimated blood loss (mL): 20 Tourniquet time (min): 45 IV fluids (mL): 800 Pathology: other Condition: stable Disposition: PACU Procedure in detail: The patient was brought to the operating room and prepped and draped in standard sterile fashion. A time-out was called to identify proper site proper procedure proper surgeon and IV antibiotics were administered. 1 g of IV tranexamic acid was administered. I began by making a midline incision to the retinaculum and performed a medial parapatellar arthrotomy. The patella was translated laterally and the knee was flexed up.There was eburnation medially. . I performed a small medial peel and resected the infrapatellar fat pad. Gilliam's line was then used to drill my intramedullary femoral guide and my distal femur cut of 10 mm was made in 5 degrees of valgus while protecting the soft tissues. I then measured a # 3 femur and placed my cutting guide and made my anterior posterior and chamfer cuts protecting the soft tissues at all times. Once I was satisfied with my cuts I turned my attention to the tibia. I removed the meniscus medially and laterally and , using an external cutting guide, in line with the tibial crest and the third ray, I made my distal tibial cut in 3 deg slope of while protecting the PCL the posterior soft tissues at all times. An extension block was used to confirm appropriate amount of bony resection. I then sized a #3 tibia and once I was satisfied that there was complete tibial coverage I placed my trial and with the trial femur in place took the knee through range of motion. I was satisfied with the extension and flexion as well as the stability and balance at 0, 30 and 90 degrees. I then turned my attention to the patella where I removed 1 cm from the undersurface of the patella and then trialed a 29a patellar button. Again the knee was taken through range of motion I was satisfied with the tracking. I then returned to the femur and drilled my femoral lug holes and prepared the tibia. A femoral bone plug was placed and the knee was irrigated copiously. I then press fit the patella, tibia and femur in standard fashion. I trialed different inserts until I selected a #9 insert. The final insert was placed and local TXA was performed. A Werewolf cautery wand was used to maintain hemostasis over the capsule and meniscal beds, the gutters and peripatellar soft tissues. The knee was then closed with a running Quill suture, a 3 0 Vicryl and rupert on the skin. Patient was then placed in sterile dressing and brought to recovery room in stable condition there were no known complications.
[2023-05-09] MEDS: Insulin Lispro 100 UNIT/ML 3 ML VIAL SUBCUT ×2 (12:20→17:05)
--- NOTE | 2023-05-09 14:14 | MHC.CM.PN ---
pt lives alone had no previous servcies pt is receommending home w/[facility]na referral made pt has ride home
--- NOTE | 2023-05-09 15:18 | HO.POSTANES ---
Post Anesthesia Evaluation Post Anesthesia Evaluation Date of Service: 05/09/23 Vital Signs: Vital Signs Temp Pulse Resp BP Pulse Ox O2 Del Method 05/09/23 14:58 97.6 F 82 16 149/64 H 92 Room Air 05/09/23 14:34 77 05/09/23 09:56 77 05/09/23 08:02 77 18 05/09/23 07:23 97.6 F 75 16 138/63 96 Room Air Anesthesia: Spinal and Nerve Block Mental Status: Awake Pain Control: Satisfactory Nausea/Vomiting: None Hydration: Adequate Anesthesia-Related Issues: No Anes. Related Issues
[2023-05-09 16:55] LABS: Glucose, Whole Blood 154 mg/dL (60-115)
[2023-05-09 20:29] LABS: Glucose, Whole Blood 128 mg/dL (60-115)
[2023-05-09] MEDS: Primidone 50 MG TABLET 100 MG PO (20:41)
[2023-05-09] MEDS: Montelukast Sodium 10 MG TABLET PO (20:42)
[2023-05-09] MEDS: 0.9 % Sodium Chloride Flush 3 ML SYRINGE IVFLUSH (20:42)
[2023-05-10] MEDS: HYDROmorphone HCl 0.5 MG/0.5 ML SYRINGE IVPUSH ×2 (00:40→10:58)
[2023-05-10 03:32] VITALS: BP 156/71; PULSE 76; RESP 16; TEMP 35.9; O2SAT 96
[2023-05-10] MEDS: oxyCODONE HCl Immed Release 5 MG TABLET 10 MG PO (03:58)
[2023-05-10 05:50] LABS: MANUAL DIFF FLAG NO
[2023-05-10 05:57] LABS: Basophils Percent Auto 0.3 % (0-2); Eosinophils Percent Auto 0.5 % (0-4); Hematocrit 31.6 % (37.0-47.0); Imm Gran Abs Auto 0.02 X10*3/uL (0.00-0.03); Imm Gran Pct Auto 0.3 % (0.0-0.4); Lymphocytes Absolute Auto 1.4 X10*3/uL (1.2-4.9); Lymphocytes Percent Auto 18.1 % (20-40); Mean Corpuscular HGB Conc 31.6 g/dl (31.0-35.0); Mean Corpuscular Hemoglobin 27.9 pg (27.0-33.0); Mean Corpuscular Volume 88.3 fL (80.0-98.0); Mean Platelet Volume 10.3 fL (9.4-12.3); Monocytes Percent Auto 12.3 % (2-11); Neutrophils Absolute Auto 5.3 x10*3/uL (2.0-8.3); Neutrophils Percent Auto 68.5 % (45-73); Platelet Count 229 X10*3/uL (160-400); Red Blood Count 3.58 X10*6/uL (4.20-5.50); Red Cell Distribution Width 14.6 % (11.0-16.0); White Blood Count 7.8 X10*3/uL (4.8-10.8)
[2023-05-10 06:12] LABS: Anion Gap 14 (12-20); Blood Urea Nitrogen 9 mg/dL (9-16); Carbon Dioxide 25 mmol/L (22-29); Chloride 103 mmol/L (96-108); Estimated Glomerular Filt Rate > 60; Glucose Fasting 127 mg/dL (60-99); Potassium 3.8 mmol/L (3.3-5.1); Sodium 138 mmol/L (135-145)
[2023-05-10 07:03] VITALS: BP 122/57; PULSE 80; RESP 18; TEMP 37.2; O2SAT 95
[2023-05-10 07:16] LABS: Glucose, Whole Blood 116 mg/dL (60-115)
[2023-05-10] MEDS: Fluticasone/Vilanterol 200/25 BLST.W.DEV 1 PUFF INHALE (07:38)
[2023-05-10 07:40] VITALS: PULSE 82; RESP 16; O2SAT 94
[2023-05-10] MEDS: buPROPion HCl XL 300 MG TAB.ER.24H PO (07:55)
[2023-05-10] MEDS: Enoxaparin Sodium 40 MG/0.4 ML SYRINGE SUBCUT (07:55)
[2023-05-10] MEDS: Primidone 50 MG TABLET PO (07:55)
[2023-05-10] MEDS: Docusate Sodium 100 MG CAPSULE PO (07:55)
[2023-05-10] MEDS: oxyCODONE HCl ER 10 MG TAB.ER.12H PO (07:55)
[2023-05-10] MEDS: hydrOXYzine HCL 25 MG TABLET PO (07:55)
[2023-05-10] MEDS: Celecoxib 200 MG CAPSULE PO (07:55)
[2023-05-10] MEDS: 0.9 % Sodium Chloride Flush 3 ML SYRINGE IVFLUSH (07:56)
--- NOTE | 2023-05-10 08:19 | P.DS_ITS ---
DS: Providers Provider Date of Service: 05/10/23 Primary care physician: CHANTAL Villalta Consults: 05/08/23 12:11 Consult to Hospitalist Routine Comment: Consulting Provider: Hospitalist Reason For Exam: diabetes DS: Diagnosis Discharge Diagnosis (1) Status post total knee replacement, right: Status: Acute (2) Type 2 diabetes mellitus without complications: Status: Acute (3) Morbid (severe) obesity due to excess calories: Status: Acute DS: Summary Hospital Course Hospital Course: The patient underwent a successful right total knee arthroplasty, they were transferred to PACU and then to the floor to recover. During their stay, their vitals were stable, afebrile at 98.9. Labs were unremarkable, H/H 10.0/31.6. POD 1 they were started on Lovenox for DVT ppx, they also received Physical Therapy services twice a day. Prior to discharge, their dressing was intact, JUSTIN device is functioning properly and the plan was to be discharged home with [facility]NA serv ices. Time Attestation Discharge coordination time: Less than 30 minutes Quality: Safe Use of Opioids Does Pt have an Active Cancer Diagnosis on the Problem List?: No Quality: Stroke Does the patient have a stroke diagnosis?: No Physical Exam Vital Signs: Vital Signs: Last Vital Signs Temp 98.9 F 05/10/23 07:03 Pulse 82 05/10/23 07:40 Resp 16 05/10/23 07:40 BP 122/57 L 05/10/23 07:03 Pulse Ox 95 05/10/23 07:03 O2 Del Method Room Air 05/10/23 07:03 BMI result Body Mass Index 40.9 Const: General: cooperative, healthy appearing and no acute distress Resp: Effort & Inspection: normal respiratory effort and able to speak in complete sentences Cardio: Rate: regular rate Peripheral pulses: Peripheral pulses 2+ throughout GI: Palpation (GI): Soft to palpation Skin: Lesions: no lesions Rashes: no rashes Extrem: Other: Right knee JUSTIN dressing is c/d/i holding appropriate suction. Sutures intact. No surrounding erythema or signs of infection. Able to dorsi/plantar flex. Calf is supple and nontender. Sensation intact. Pedal pulse intact. JUSTIN device fxning properly holding pressure. DS: Data Data Completed and Pending Pending studies at discharge: Pending at discharge 05/08/23 08:52 Surgical [PTH] Routine Labs on day of discharge: Laboratory Results - last 24 hr 05/09/23 05/09/23 05/09/23 11:12 16:50 20:25 WBC RBC Hgb Hct MCV MCH MCHC RDW Plt Count MPV Immature Gran % (Auto) Neut % (Auto) Lymph % (Auto) [place] % (Auto) Eos % (Auto) Baso % (Auto) Lymph # (Auto) [place] # (Auto) Eos # (Auto) Baso # (Auto) Abs Immat Gran (auto) Absolute Neuts (auto) Absolute Nucleated RBC Nucleated RBC % (auto) Sodium Potassium Chloride Carbon Dioxide Anion Gap BUN Creatinine Estim Creat Clear Calc Estimated GFR POC Glucose 151 H 154 H 128 H Fasting Glucose Calcium 05/10/23 05/10/23 05:09 07:13 WBC 7.8 RBC 3.58 L Hgb 10.0 L Hct 31.6 L MCV 88.3 MCH 27.9 MCHC 31.6 RDW 14.6 Plt Count 229 MPV 10.3 Immature Gran % (Auto) 0.3 Neut % (Auto) 68.5 Lymph % (Auto) 18.1 L [place] % (Auto) 12.3 H Eos % (Auto) 0.5 Baso % (Auto) 0.3 Lymph # (Auto) 1.4 [place] # (Auto) 1.0 Eos # (Auto) 0.0 Baso # (Auto) 0.0 Abs Immat Gran (auto) 0.02 Absolute Neuts (auto) 5.3 Absolute Nucleated RBC 0.000 Nucleated RBC % (auto) 0.0 Sodium 138 Potassium 3.8 Chloride 103 Carbon Dioxide 25 Anion Gap 14 BUN 9 Creatinine 0.67 Estim Creat Clear Calc 92.0 Estimated GFR > 60 POC Glucose 116 H Fasting Glucose 127 H Calcium 9.0 Discharge Plan Discharge Patient Disposition: Home Health Service Referrals: Mira Morrow PA-C [Physician Block Machine Operator] - 2 Weeks (05/24/23 1:00 [facility] Mira Morrow PA-C) Discharge Medications: New celecoxib 200 mg Capsule 200 mg PO BID 30 Days Qty: 60 1RF acetaminophen 325 mg Tablet 650 mg PO Q6H PRN (Reason: Pain, Mild (Pain Scale 1-3)) 30 Days Qty: 240 1RF docusate sodium 100 mg Capsule 100 mg PO BID 14 Days Qty: 28 0RF oxycodone 5 mg Tablet 5 mg PO Q4H PRN (Reason: Pain, Moderate(Pain Scale 4-6)) 7 Days Qty: 42 0RF Rx Instructions: Partial Fill upon patient request. enoxaparin 40 mg/0.4 mL Syringe 40 mg subcut Q24H 42 Days Qty: 16.8 0RF Continued primidone 50 mg Tablet 100 mg PO BEDTIME montelukast 10 mg tablet 10 mg PO BEDTIME hydroxyzine HCl 25 mg tablet 25 mg PO BID levocetirizine 5 mg tablet 5 mg PO DAILY Rybelsus 7 mg tablet 7 mg PO DAILY metformin 500 mg tablet 500 mg PO BID primidone 50 mg tablet 50 mg PO DAILY lisinopril 2.5 mg tablet 2.5 mg PO DAILY atorvastatin 40 mg tablet 40 mg PO BEDTIME bupropion HCl 300 mg tablet extended release 24 hr 300 mg PO DAILY estradiol 0.05 mg/24 hr patch semiweekly 1 patch topical 2XW budesonide-formoterol [Symbicort] 160-4.5 mcg/actuation HFA aerosol inhaler 1 inh inhalation BID ipratropium bromide 42 mcg (0.06 %) spray,non-aerosol 2 spray intranasal DAILY fluticasone propionate [Flovent HFA] 110 mcg/actuation HFA aerosol inhaler 1 puff inhalation BEDTIME albuterol sulfate 2.5 mg /3 mL (0.083 %) solution for nebulization 2.5 mg inhalation TID PRN (Reason: Shortness Of Breath Or Wheezing) Discontinued tramadol 50 mg tablet 50 mg PO TID PRN (Reason: Pain) Diet: Regular diet Activity on Discharge: Use cane or walker Activity Restrictions/Additional Instructions: Physical Therapy for Total knee arthroplasty: WBAT, gait training, ROM 0-12, quad strength * Limit stair climbing * No showering, no tub bath-keep dressing clean, dry and intact * No driving x6 weeks * Continue Aspirin twice a day x 6 weeks * Follow up with [facility] Orthopedics in 2 weeks: 05/24/2313:00 [facility] Orthopedic SurgeonsMira Morrow PA-C
--- NOTE | 2023-05-10 08:20 | P.F2F_ITS ---
Service Date Service Date: 05/10/23 Encounter Date of encounter: 05/10/23 Reasons for Services Signs and symptoms assessed: s/p RTKA. Pt. is considered homebound due to recent surgery. Unable to drive, poor balance, poor gait mechanics. Reason for physical therapy: home safety and mobility, therapeutic exercises, restore joint function, gait/transfer training, assess need for DME and ADL training Homebound: Leaving the home is medically contraindicated at this time without the asist of a device and/or another person due th the listed conditions above and below. Reason homebound: unsteady gait / fall risk, leg weakness, pain with ambulation, pain with transfers, poor balance / fall risk and unable to drive Certification: Based on the above findings, I certify that this patient is confined to the home and needs intermittent prison care, physical therapy and/or speech therapy, or continues to need occupational therapy. The patient is under my care, and I have initiated the establishment of the plan of care. The patient will be followed by a physician who will periodically review the plan of care. Time Spent With Patient Time: Total time managing care of this patient today ____ minutes.
[2023-05-10 09:18] VITALS: PULSE 82
--- NOTE | 2023-05-10 09:18 | MHC.CM.PN ---
DP: PT HAS BEEN MEDICALLY CLEARED FOR DC HOME WITH NEW [facility] SERVICES. NURSING WILL DO TEACH FOR LOVENOX ADMINISTRATION BEFORE DC. [facility] NOTIFIED OF TODAY'S DC. PT HAS OWN RIDE HOME.
== END 2023-05-10 11:42 | disposition home health service (06) ==
LOC: HO.SSS 06:48 → HO.S3 11:39
PROVIDERS: Physician Assistant; PCP Physician Assistant; Visit Provider Orthopaedic Surgery
PROC: (CPT 27447; principal; 2023-05-08 07:30)
DX: M17.11 Unilateral primary osteoarthritis, right knee (principal); R26.2 Difficulty in walking, not elsewhere classified; M54.50 Low back pain, unspecified; G89.29 Other chronic pain; J45.909 Unspecified asthma, uncomplicated; I10 Essential (primary) hypertension; E78.2 Mixed hyperlipidemia; K21.9 Gastro-esophageal reflux disease without esophagitis; K44.9 Diaphragmatic hernia without obstruction or gangrene; E11.9 Type 2 diabetes mellitus without complications; G47.33 Obstructive sleep apnea (adult) (pediatric); J45.40 Moderate persistent asthma, uncomplicated; E66.01 Morbid (severe) obesity due to excess calories; Z68.41 Body mass index [BMI] 40.0-44.9, adult; Z79.51 Long term (current) use of inhaled steroids; Z99.89 Dependence on other enabling machines and devices; Z79.84 Long term (current) use of oral hypoglycemic drugs; Z79.899 Other long term (current) drug therapy; Z91.040 Latex allergy status; Z98.84 Bariatric surgery status; Z87.891 Personal history of nicotine dependence
CPT/HCPCS: 27447; 36415; 73560; 80048; 82947; 83036; 85014; 85018; 85025; 86850; 86900; 86901; 87640; 87641; 88305; 88311; 97116; 97161; 97530; 99024; C1776; J0131; J0665; J0690; J1170; J1650; J2250; J2704; J2795; J7120

== ENCOUNTER → 2023-05-08 05:58 | Outpatient (BNV) | payer MEDICARE, MEDICAID, SELFPAY | PROVIDERS: PCP Physician Assistant; Visit Provider Physician Assistant | DX: M17.11 Unilateral primary osteoarthritis, right knee (principal) | CPT/HCPCS: 99222 ==

== ENCOUNTER → 2023-05-08 05:58 | Outpatient (BNV) | payer MEDICARE, MEDICAID, SELFPAY | PROVIDERS: PCP Physician Assistant; Visit Provider Orthopaedic Surgery | DX: Z96.651 Presence of right artificial knee joint (principal) | CPT/HCPCS: 27447; 99024 ==

== ENCOUNTER 2023-05-24 12:46 | Outpatient (AMB) | payer MEDICARE, MEDICAID, SELFPAY ==
--- NOTE | 2023-05-24 12:54 | A.OFFVIS_ITS ---
Intake Intake Visit Reasons: PO-RT TKA 05/08/23 NE Intake Note: Leanne a 58 year old female presents today for a post operative right TKA on 05/08/23 NE. Patient reports mild pain/discomfort as well as swelling in her knee. Allergies latex [LATEX] Allergy (Unknown, Verified 05/08/23 06:12) SWELLING HPI PO-RT TKA 05/08/23 NE HPI Details 58-year-old female who returns to the [facility] today for post-op right TKA, 05/08/[address] Soria. She continues to have mild pain, discomfort and swelling in her knee but is doing well otherwise. She takes oxycodone and Tylenol for his pain with benefits. She has no other concerns today. [facility] Medical History Hx of vertigo Hiatal hernia Claustrophobia Carpal tunnel syndrome on both sides Numbness Sleep apnea History of cyst of breast Asthma Back pain Mixed hyperlipidemia Occipital neuralgia Allergic rhinitis Gastro-esophageal reflux disease without esophagitis Depression Bilateral hearing loss DDD (degenerative disc disease), lumbar Anxiety Unspecified asthma, uncomplicated Unspecified osteoarthritis, unspecified site Vitamin D deficiency Degenerative joint disease of knee Chronic pain Chronic right-sided low back pain with sciatica Adenoma Surgical History Hx of laparoscopic gastric banding H/O colonoscopy Status post surgery involving ear History of uvulectomy Hx of section H/O: hysterectomy S/P right knee arthroscopy Social History Household Members: None Housing: Apartment Housing Other:: 2nd floor Are you a primary nursing care attendant to a significant other at home: No Do you presently have visiting nurse or other home services: No Patient Tobacco Use Status: Former Tobacco user Quit Date: 2019 Substance Use Type: Marijuana service: No Current occupational status: disabled Review of Systems Const All systems reviewed & are unremarkable except as noted in HPI and below Physical Exam Extrem Other: Right knee: Incision clean, dry and intact. No erythema or joint effusion. ROM is 5-60 degrees. Calf supple, nontender. NVI. Assessment & Plan Assessment & Plan (1) Status post total knee replacement, right: Code(s): Z96.651 - Presence of right artificial knee joint Plan Diandra removed, steri strips applied. She will begin to transition to Outpatient PT to continue working on Gait training, ROM and quad strength. No driving for another 4 weeks. She will require ppx abx for dental procedures. She will f/u in 4 weeks, sooner if needed. Orders: Orders PT Evaluation and Treatment Today Z96.651 - Presence of right artificial knee joint Patient Instructions: Scribed for Mira Morrow PA-C, by Abdullahi Flores medical technologist, on 05/24/2023 at 1:00 PM EST. I, Mira Morrow PA-C, have personally reviewed and agree with the information entered by the scribe. Coding Level of Care Code Global (46070) Diagnoses Status post total knee replacement, right Z96.651
== END 2023-05-24 13:51 | disposition home or self-care (01) ==
PROVIDERS: PCP Physician Assistant; Visit Provider Physician Assistant
DX: Z96.651 Presence of right artificial knee joint (principal)
CPT/HCPCS: 99024

== ENCOUNTER → 2023-05-24 12:46 | Outpatient (BNVA) | payer MEDICARE, MEDICAID, SELFPAY | PROVIDERS: PCP Physician Assistant; Visit Provider Physician Assistant | DX: Z47.1 Aftercare following joint replacement surgery (principal); Z96.651 Presence of right artificial knee joint | CPT/HCPCS: 99212 ==

== ENCOUNTER 2023-06-21 12:53 | Outpatient (AMB) | payer MEDICARE, MEDICAID, SELFPAY ==
--- NOTE | 2023-06-21 13:04 | MHC.OFFVIS ---
Intake Intake Visit Reasons: RT TKA 05/08/23 NE Intake Note: Leanne a 58 year old female presents today for a post operative right TKA on 05/08/23 NE. She is using the rollator walker to ambulate. She reports some stiffness and mild pain. Allergies latex [LATEX] Allergy (Unknown, Verified 06/21/23 13:05) SWELLING Medication List - Last Reconciled 06/21/23 by Mili Rogers, RN acetaminophen 650 mg (2 x 325 mg) PO Q6H PRN 30 days albuterol sulfate 2.5 mg inhalation TID PRN atorvastatin 40 mg PO BEDTIME budesonide-formoterol 160-4.5 mcg/actuation (Symbicort) 1 inh inhalation BID bupropion HCl 300 mg PO DAILY celecoxib 200 mg PO BID 30 days docusate sodium 100 mg PO BID 14 days enoxaparin 40 mg (0.4 mL) subcut Q24H 42 days estradiol 1 patch topical 2XW fluticasone propionate 110 mcg/actuation (Flovent HFA) 1 puff inhalation BEDTIME hydroxyzine HCl 25 mg PO BID ipratropium bromide 2 sprays intranasal DAILY levocetirizine 5 mg PO DAILY lisinopril 2.5 mg PO DAILY metformin 500 mg PO BID montelukast 10 mg PO BEDTIME oxycodone 5 mg PO Q6H PRN 7 days primidone 100 mg PO BEDTIME primidone 50 mg PO DAILY semaglutide (Rybelsus) 7 mg PO DAILY HPI RT TKA 05/08/23 NE HPI Details Leanne is a 58 year old woman ~6 weeks S/P right TKA. She reports some mild ain and stiffness in her knee, but says this is tolerable. She has been working with PT. She is seen today using a rolling walker for ambulation. [facility] Medical History Hx of vertigo Hiatal hernia Claustrophobia Carpal tunnel syndrome on both sides Numbness Sleep apnea History of cyst of breast Asthma Back pain Mixed hyperlipidemia Occipital neuralgia Allergic rhinitis Gastro-esophageal reflux disease without esophagitis Depression Bilateral hearing loss DDD (degenerative disc disease), lumbar Anxiety Unspecified asthma, uncomplicated Unspecified osteoarthritis, unspecified site Vitamin D deficiency Degenerative joint disease of knee Chronic pain Chronic right-sided low back pain with sciatica Adenoma Surgical History Hx of laparoscopic gastric banding H/O colonoscopy Status post surgery involving ear History of uvulectomy Hx of section H/O: hysterectomy S/P right knee arthroscopy Social History Household Members: None Housing: Apartment Housing Other:: 2nd floor Are you a primary plant health care technician to a significant other at home: No Do you presently have visiting nurse or other home services: No Patient Tobacco Use Status: Former Tobacco user Quit Date: 2019 Substance Use Type: Marijuana service: No Current occupational status: disabled Review of Systems Const All systems reviewed & are unremarkable except as noted in HPI and below Physical Exam Const General: no acute distress, alert and awake Orientation/consciousness: patient oriented x3 HEENT Head: Yes normocephalic and Yes atraumatic Eyes EOM: EOMs intact bilaterally Resp Effort & Inspection: normal respiratory effort and able to speak in complete sentences Cardio Jugular venous distension: no JVD Skin General skin exam: turgor normal Rashes: no rashes Neuro General: patient oriented x3 Extrem Other: 0-110 inc c/d/i Psych Appearance: grossly normal Affect: normal affect Attitude: cooperative Assessment & Plan Assessment & Plan (1) Status post total knee replacement, right: Code(s): Z96.651 - Presence of right artificial knee joint Plan: Continue PT Doing well Wean narcotics F/u 6 weeks Plan Prepared for Solitario Soria MD by Errol Quezada medical technologist, on 06/21/23 at 1:09 PM, EST. Coding Level of Care Code Global (32897) Diagnoses Status post total knee replacement, right Z96.651
== END 2023-06-21 13:27 | disposition home or self-care (01) ==
PROVIDERS: PCP Physician Assistant; Visit Provider Orthopaedic Surgery
DX: Z96.651 Presence of right artificial knee joint (principal)
CPT/HCPCS: 99024

== ENCOUNTER → 2023-06-21 12:53 | Outpatient (BNVA) | payer MEDICARE, MEDICAID, SELFPAY | PROVIDERS: PCP Physician Assistant; Visit Provider Orthopaedic Surgery | DX: Z47.1 Aftercare following joint replacement surgery (principal); Z96.651 Presence of right artificial knee joint | CPT/HCPCS: 99212 ==

== ENCOUNTER 2023-08-02 09:15 | Outpatient (REF) | payer MEDICARE, MEDICAID, SELFPAY ==
--- NOTE | ~2023-08-02 | XR_ITS ---
EXAMINATION: XR KNEE, AP STANDING BILATERAL XR KNEE, RIGHT CLINICAL INFORMATION: Pain and unspecified knee. COMPARISON: 05/08/2023 right knee radiographs. TECHNIQUE: 2 views of the right knee. FINDINGS: Redemonstration of right total knee arthroplasty and patellar resurfacing. Hardware appears intact. Alignment is anatomic. Interval removal of surgical rupert. Moderate joint effusion. AP standing view of the left knee demonstrates moderate medial joint space narrowing with marginal osteophytes. XR/XR knee standing BI IMPRESSION: Right total knee arthroplasty with intact hardware. Alignment is anatomic. Moderate joint effusion.
--- NOTE | ~2023-08-02 | XR_ITS ---
EXAMINATION: XR KNEE, AP STANDING BILATERAL XR KNEE, RIGHT CLINICAL INFORMATION: Pain and unspecified knee. COMPARISON: 05/08/2023 right knee radiographs. TECHNIQUE: 2 views of the right knee. FINDINGS: Redemonstration of right total knee arthroplasty and patellar resurfacing. Hardware appears intact. Alignment is anatomic. Interval removal of surgical rupert. Moderate joint effusion. AP standing view of the left knee demonstrates moderate medial joint space narrowing with marginal osteophytes. XR/XR knee RT 2V IMPRESSION: Right total knee arthroplasty with intact hardware. Alignment is anatomic. Moderate joint effusion.
== END 2023-08-02 09:16 | disposition home or self-care (01) ==
LOC: HO.HOSX 09:15
PROVIDERS: Visit Provider Orthopaedic Surgery
DX: Z47.1 Aftercare following joint replacement surgery (principal); Z96.651 Presence of right artificial knee joint
CPT/HCPCS: 73560; 73565; 99212

== ENCOUNTER 2023-08-02 12:19 | Outpatient (AMB) | payer MEDICARE, MEDICAID, SELFPAY ==
--- NOTE | 2023-08-02 12:37 | MHC.OFFVIS ---
Intake Intake Visit Reasons: PO-RT TKA 05/08/23 NE-w/xray Intake Note: Leanne a 58 year old female presents today for a post operative right TKA on 05/08/23 NE. Patient reports that she is having pain the right knee as well as numbness on lateral aspect of the knee. She has increased pain when bending. Allergies latex [LATEX] Allergy (Unknown, Verified 06/21/23 13:05) SWELLING HPI PO-RT TKA 05/08/23 NE-w/xray HPI Details Leanne is a 58 year old woman ~3 months S/P right TKA. She reports some increase in knee pain, particularly when bending. She also complains of some numbness in the lateral aspect of her knee. She has been working with PT. [facility] Medical History Hx of vertigo Hiatal hernia Claustrophobia Carpal tunnel syndrome on both sides Numbness Sleep apnea History of cyst of breast Asthma Back pain Mixed hyperlipidemia Occipital neuralgia Allergic rhinitis Gastro-esophageal reflux disease without esophagitis Depression Bilateral hearing loss DDD (degenerative disc disease), lumbar Anxiety Unspecified asthma, uncomplicated Unspecified osteoarthritis, unspecified site Vitamin D deficiency Degenerative joint disease of knee Chronic pain Chronic right-sided low back pain with sciatica Adenoma Surgical History Hx of laparoscopic gastric banding H/O colonoscopy Status post surgery involving ear History of uvulectomy Hx of section H/O: hysterectomy S/P right knee arthroscopy Social History Household Members: None Housing: Apartment Housing Other:: 2nd floor Are you a primary emergency care tech to a significant other at home: No Do you presently have visiting nurse or other home services: No Patient Tobacco Use Status: Former Tobacco user Quit Date: 2019 Substance Use Type: Marijuana service: No Current occupational status: disabled Review of Systems Const All systems reviewed & are unremarkable except as noted in HPI and below Physical Exam Const General: no acute distress, alert and awake Orientation/consciousness: patient oriented x3 HEENT Head: Yes normocephalic and Yes atraumatic Eyes EOM: EOMs intact bilaterally Resp Effort & Inspection: normal respiratory effort and able to speak in complete sentences Cardio Jugular venous distension: no JVD Skin General skin exam: turgor normal Rashes: no rashes Neuro General: patient oriented x3 Extrem Other: inc c/d/i 0-120 stable arc decreased sensation lateral to incision Psych Appearance: grossly normal Affect: normal affect Attitude: cooperative Results Reviewed Results Reviewed: I personally reviewed relevant radiographs. Right total knee arthroplasty in expected post operative position with no hardware complications or evidence of loosening Assessment & Plan Assessment & Plan (1) Status post total knee replacement, right: Code(s): Z96.651 - Presence of right artificial knee joint Plan: Right TKA doing well Slow but steady improvement F/u 3 months Plan Prepared for Solitario Soria MD by Errol Quezada, senior medical writer, on 08/02/23 at 12:42 PM, EST. Orders: Orders XR knee standing BI Today M25.569 - Pain in unspecified knee XR knee RT 2V Today M25.569 - Pain in unspecified knee Coding Level of Care Code Global (35955) Diagnoses Status post total knee replacement, right Z96.651
== END 2023-08-02 12:55 | disposition home or self-care (01) ==
PROVIDERS: PCP Physician Assistant; Visit Provider Orthopaedic Surgery
DX: Z96.651 Presence of right artificial knee joint (principal)
CPT/HCPCS: 99024

== ENCOUNTER 2023-08-10 13:00 | Outpatient (RCR) | payer MEDICARE, MEDICAID, SELFPAY ==
--- NOTE | 2023-05-24 14:07 | MHC.PT.EP ---
[facility] [place] Office [place] Office [place] Office [address] Iman Balderas [address] [phone] F: [phone] F: [phone] F: [phone] F: [phone] Physical Therapy Plan of Care Date of Evaluation: 05/24/23 Date of Surgery: 05/08/23 Diagnosis: POST-OP Rt TKA Assessment: 58 YO FEMALE REF TO PT S/P Rt TKA ON 05/08/23. SHE RESIDES ALONE IN A 2 ND FLOOR APT AND SHE IS CURRENTLY AMB W A W/WALKER. OBJECTIVE FINDINGS: PO ROM DEFICITS RIGHT KNEE, SLUGGISH Rt QUAD MM, TIGHT HIP FLEXORS/ CALF MM, (+) STRENGTH DEFICITS, AND PAIN IN RIGHT KNEE. FUNCTIONALLY, THE Pt IS LIMITED WITH BED MOB, (+) UEs COMPEN W TRANSFERS, DECR STANDING JAMES, ALTERED GAIT MECHANICS, DIFFIC W STAIR MGMT, AND RESTRICTED WITH MORE PHYSICALLY DEMANDING ADLs. Pt WOULD BENEFIT FROM PT AT THIS TIME TO GUIDE HER IN HER POST-OP COURSE, DEV A PROGR HEP, ADDRESS PAIN MGMT, AND OBTAINING MAXIMAL LEVEL OF FUNCTIONAL INDEPENDENCE. Frequency and Duration: The patient will be seen 2 x WK x 8 WKS Short Term Goals: *Pt'S RIGHT KNEE PAIN WILL DECR TO 2-3/10 *Pt DEMON APPROP BED MOB/ POSITIONING/ SIT <-> STAND/ CAR TRANSFERS *Pt DEMON Rt KNEE AROM 0* TO 120* *Pt DEMON RECIPROCAL TECHN W STAIR MGMT , W RAILS [facility] Goals: *patient will be able to maintain 10 sec SLS demonstrating reduce risk for falls. *patient will demon efficient gait mech w least restrictive asst device *Pt WILL IMPROVE LUMBOPELVIC/ Rt LE STRENGTH TO AT LEAST 5-/5 *Pt RESUME REG ADLs / PLOF EVIDENT W IMPROVED LEFI SCORE *Pt INDEP W PROGR HEP AND SELF-SX MGMT TECHN Treatment Plan: Modalities to reduce pain, spasms and effusion. Manual therapy to restore motion and function. Therapeutic exercise to improve strength and flexibility. Neuromuscular re-education for posture and balance. Therapeutic activities to return to functional activities of daily living. Electronically signed by: BERNARDO EARLY,PT Please sign and return to therapist. Thank you for your referral.
--- NOTE | 2023-10-18 08:30 | MHC.PT.DC ---
[facility] [place] Office [place] Office [place] Office [address] [phone] F: [phone] F: [phone] F: [phone] F: [phone] Physical Therapy Discharge Report Diagnosis: POST-OP Rt TKA Date of Surgery: 05/08/23 Date of Evaluation: 05/24/23 Date of Discharge: 10/18/23 Treatments to Date: 21 Cancellations to Date: 0 No Shows to Date: 0 Discharge Status: Achieved Goals Improved Function Independent with HEP Discharge Summary: CONRADO HAS PROGRESSED WELL IN PT S/P Rt TKA- SHE HAS A THOROUGH HEP AND WE HAVE REINFORCED IMPORTANCE OF CONTINUITY W HEP FOR OPTIMAL ROM GAINS . SHE DEMON MORE EFFICIENT GAIT MECHANICS ON LEVEL AND STAIRS. THE Pt HAS MET HER PT GOALS TO MAX POTENTIAL AT THIS TIME. Electronically signed by: BERNARDO EARLY,PT Please sign and return to therapist. Thank you for your referral.
== END 2023-10-18 08:32 | disposition home or self-care (01) ==
LOC: HO.PT 13:00
PROVIDERS: PCP Physician Assistant; Visit Provider Physician Assistant
DX: Z96.651 Presence of right artificial knee joint (principal)
CPT/HCPCS: 97110; 97140; 97162; 97530

== ENCOUNTER 2023-11-01 11:49 | Outpatient (REF) | payer MEDICARE, MEDICAID, SELFPAY ==
--- NOTE | ~2023-11-01 | XR_ITS ---
EXAMINATION: XR KNEE, RIGHT CLINICAL INFORMATION: Reason for Exam M25.561 - Pain in right knee COMPARISON: Knee radiographs 07/24/1993 TECHNIQUE: 1 view of the bilateral knees standing. 2 views of the right knee. FINDINGS: RIGHT KNEE: No acute fracture or dislocation. Status post total knee arthroplasty in anatomic alignment. No evidence of hardware fracture or complication. No joint effusion. A few amorphous foci of calcification adjacent to the patella may reflect sequelae of heterotopic ossification. LEFT KNEE: Limited single view of the left knee is remarkable for moderate osteoarthritis with loss of medial and lateral compartment joint space and osteophytes. XR/XR knee RT 3V IMPRESSION: * No acute osseous abnormality. * Status post right total knee arthroplasty. No evidence of hardware fracture or complication. * Moderate osteoarthritis of the left knee.
== END 2023-11-01 11:50 | disposition home or self-care (01) ==
LOC: HO.HOSX 11:49
PROVIDERS: Visit Provider Orthopaedic Surgery
DX: Z47.1 Aftercare following joint replacement surgery (principal); Z96.651 Presence of right artificial knee joint
CPT/HCPCS: 73562; 99212

== ENCOUNTER 2023-11-01 13:08 | Outpatient (AMB) | payer MEDICARE, MEDICAID, SELFPAY ==
--- NOTE | 2023-11-01 13:34 | A.OFFVIS_ITS ---
Intake Visit Reasons: OV-RT TKA 05/08/23 NE-w/xray Intake Note: Leanne is a 58 year old female who presents today for a follow up of her right knee s/p right TKA on 05/08/23 NE. Patirnt reports that she is hAving constant continued pain felt at the top of the patella, lateral aspect of the knee and the posterior aspect of the knee. Allergies latex [LATEX] Allergy (Unknown, Verified 06/21/23 13:05) SWELLING HPI HPI OV-RT TKA 05/08/23 NE-w/xray: Details: ~ 6 mo s/p r TKA doing ok. She is improving but still with pain especially with stairs. No fever/chills PFSH Medical History Hx of vertigo Hiatal hernia Claustrophobia Carpal tunnel syndrome on both sides Numbness Sleep apnea History of cyst of breast Asthma Back pain Mixed hyperlipidemia Occipital neuralgia Allergic rhinitis Gastro-esophageal reflux disease without esophagitis Depression Bilateral hearing loss DDD (degenerative disc disease), lumbar Anxiety Unspecified asthma, uncomplicated Unspecified osteoarthritis, unspecified site Vitamin D deficiency Degenerative joint disease of knee Chronic pain Chronic right-sided low back pain with sciatica Adenoma Surgical History Hx of laparoscopic gastric banding H/O colonoscopy Status post surgery involving ear History of uvulectomy Hx of section H/O: hysterectomy S/P right knee arthroscopy Social History Household Members: None Housing: Apartment Housing Other:: 2nd floor Are you a primary auto care center manager to a significant other at home: No Do you presently have visiting nurse or other home services: No Patient Tobacco Use Status: Former Tobacco user Substance Use Type: Marijuana service: No Current occupational status: disabled Physical Exam Const General: no acute distress, alert and awake Orientation/consciousness: patient oriented x3 HEENT Head: Yes normocephalic and Yes atraumatic Eyes EOM: EOMs intact bilaterally Resp Effort & Inspection: normal respiratory effort and able to speak in complete sentences Cardio Jugular venous distension: no JVD Skin General skin exam: turgor normal Rashes: no rashes Neuro General: patient oriented x3 Extrem Other: inc c/d/i 0-120 stable arc decreased sensation lateral to incision Psych Appearance: grossly normal Affect: normal affect Attitude: cooperative Results Reviewed Results Reviewed: I personally reviewed relevant radiographs. Right total knee arthroplasty in expected post operative position with no hardware complications or evidence of loosening Assessment & Plan Assessment & Plan (1) Status post total knee replacement, right: Code(s): Z96.651 - Presence of right artificial knee joint Category: Surgical Plan: Improving but slowly continue activity as tolerated No intervention warranted f/u 6 mo Orders: Orders XR knee RT 3V 11/01/23 M25.561 - Pain in right knee Coding Level of Care Code Est Pt Level 3 (13482) Diagnoses Status post total knee replacement, right Z96.651
== END 2023-11-01 13:47 | disposition home or self-care (01) ==
PROVIDERS: PCP Physician Assistant; Visit Provider Orthopaedic Surgery
DX: Z47.89 Encounter for other orthopedic aftercare (principal); Z96.651 Presence of right artificial knee joint
CPT/HCPCS: 99212

== ENCOUNTER 2024-02-01 12:21 | Outpatient (AMB) | payer MEDICARE, MEDICAID, SELFPAY ==
--- NOTE | 2024-02-01 12:25 | MHC.OFFWIV ---
Intake Vital Signs 02/01/24 12:26 Height 5 ft Weight 205 lb BMI 40.0 BP 122/74 Blood Pressure Location Lt brachial Position Sitting Pulse 79 Pulse Source Pulse Oximeter Pulse Oximetry (%) 97 Oxygen Delivery Method Room Air Intake Visit Reasons: EP- LT ankle, heard a pop walking downstairs Intake Note: Pt presents to the office today for c/o left ankle pain that started 4 days ago walking down the stairs. Pt had a boot at home and has been wearing it for the past 4 days. Patient Tobacco Use Status: Former Tobacco user Allergies latex [LATEX] Allergy (Unknown, Verified 02/01/24 12:28) SWELLING HPI HPI Comments History of Present Illness Details Patient is a 58-year-old female complaining of left ankle pain x4 days. She states she was walking down the stairs 4 days ago when she heard a pop. She states she had some swelling around her ankle and above the back of her ankle and she has been taking ibuprofen so the swelling has gone down a little bit but it is still very tender to touch or move. She has been wearing a boot ever since with mild relief in the swelling but it is difficult and painful to walk on. She states she had her right knee replaced last May but did have issues with her left Achilles tendon and put those on the back burner while she was getting her right knee replaced. She also states she goes go to physical therapy but it is more for her back and not her knee or her achilles. [facility] Medical History Hx of vertigo Hiatal hernia Claustrophobia Carpal tunnel syndrome on both sides Numbness Sleep apnea History of cyst of breast Asthma Back pain Mixed hyperlipidemia Occipital neuralgia Allergic rhinitis Gastro-esophageal reflux disease without esophagitis Depression Bilateral hearing loss DDD (degenerative disc disease), lumbar Anxiety Unspecified asthma, uncomplicated Unspecified osteoarthritis, unspecified site Vitamin D deficiency Degenerative joint disease of knee Chronic pain Chronic right-sided low back pain with sciatica Adenoma Surgical History Hx of laparoscopic gastric banding H/O colonoscopy Status post surgery involving ear History of uvulectomy Hx of section H/O: hysterectomy S/P right knee arthroscopy Social History Household Members: None Housing: Apartment Housing Other:: 2nd floor Are you a primary animal care technician to a significant other at home: No Do you presently have visiting nurse or other home services: No Patient Tobacco Use Status: Former Tobacco user Substance Use Type: Marijuana service: No Current occupational status: disabled Review of Systems Const All systems reviewed & are unremarkable except as noted in HPI and below Physical Exam Vital Signs: Last Vital Signs Pulse 79 02/01/24 12:26 BP 122/74 02/01/24 12:26 Pulse Ox 97 02/01/24 12:26 Oxygen Delivery Method Room Air 02/01/24 12:26 BMI result Body Mass Index 40.0 Const General: cooperative, healthy appearing, comfortable and no acute distress Orientation/consciousness: patient oriented x3 Limitations: no limitations HEENT Head: Yes normal to inspection Resp Effort & Inspection: normal respiratory effort and able to speak in complete sentences Neuro General: patient oriented x3 Extrem Other: negative Barakat test/ plantarflexion present on LLE. TTP on achilles tendon and heel but tendon palpation feels normal, no thickening, no warmth or erythema of the ankle or heel. NVI of left foot Assessment & Plan Assessment & Plan (1) Achilles tendinitis, left leg: Code(s): M76.62 - Achilles tendinitis, left leg Plan: Taped Achilles with a 12mm heel rise using Coban and Vishal bandage. Fitted patient for crutches and advised to rest in this position, use ice and NSAIDs and follow up with her PCP for possible referral to orthopedic doctor if no improvement in pain. Patient comfortable with crutches, and she tells me her daughter can come over and help her, she does have a walker at home as well which she could use for ambulation. She states she has the walker and used it comfortably when she had her knee replaced last May. Recommended if she was finding it difficult to ambulate at home, that she go to the emergency department for further assistance. (2) Achilles tendon sprain: Code(s): S86.019A - Strain of unspecified Achilles tendon, initial encounter Qualifiers: Encounter type: initial encounter Laterality: left Qualified Code(s): S86.012A - Strain of left Achilles tendon, initial encounter Plan: see above Plan see above Coding Level of Care Code New Pt Level 4 (01248) Diagnoses Achilles tendinitis, left leg M76.62 Strain of left Achilles tendon, initial encounter S86.012A Encounter type: initial encounter Laterality: left
[2024-02-01 12:26] VITALS: BP 122/74; PULSE 79; O2SAT 97; BMI 40.0
== END 2024-02-01 13:21 | disposition home or self-care (01) ==
PROVIDERS: PCP Physician Assistant; Visit Provider Physician Assistant
DX: M76.62 Achilles tendinitis, left leg (principal); S86.012A Strain of left Achilles tendon, initial encounter
CPT/HCPCS: 99204

== ENCOUNTER 2024-02-22 22:36 | Emergency (ER) | payer OTHER, MEDICARE, MEDICAID, SELFPAY ==
--- NOTE | ~2024-02-22 | XR_ITS ---
EXAMINATION: XR CLAVICLE, LEFT CLINICAL INFORMATION: Fall. Pain. COMPARISON: None available. TECHNIQUE: Two views of the left clavicle. FINDINGS: The clavicle is intact. The bones and soft tissues are normal. No fracture. Acromioclavicular joint alignment is anatomic. XR/XR clavicle LT IMPRESSION: No significant abnormality identified. Electronically signed by: Freedom Adler MD 02/23/2024 02:32 AM EDT
[2024-02-22 22:49] VITALS: BP 144/77; PULSE 83; RESP 18; TEMP 36.8; O2SAT 96; BMI 37.9
[2024-02-23 01:07] VITALS: BP 117/71; PULSE 78; RESP 16; TEMP 36.8; O2SAT 98
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
[2024-02-23] MEDS: Cyclobenzaprine HCl 10 MG TABLET PO (01:22)
[2024-02-23] MEDS: Ketorolac Tromethamine 30 MG/ML VIAL IM (01:22)
[2024-02-23 02:14] VITALS: BP 117/71; PULSE 78; RESP 16; TEMP 36.8; O2SAT 98
== END 2024-02-23 02:15 | disposition home or self-care (01) ==
PROVIDERS: Emergency Provider Emergency Medicine; PCP Physician Assistant
DX: S16.1XXA Strain of muscle, fascia and tendon at neck level, initial encounter (principal); V43.52XA Car driver injured in collision with other type car in traffic accident, initial encounter; Y93.9 Activity, unspecified; Y92.410 Unspecified street and highway as the place of occurrence of the external cause; Y99.9 Unspecified external cause status
CPT/HCPCS: 73000; 96372; 99283; 99284; J1885

== ENCOUNTER 2024-04-29 13:00 | Outpatient (RCR) | payer OTHER, MEDICARE, MEDICAID, SELFPAY | END 2024-05-30 14:44 | disposition home or self-care (01) | LOC: HO.PTCHIC 13:00 | PROVIDERS: PCP Physician Assistant; Visit Provider Physician Assistant | DX: M25.561 Pain in right knee (principal) | CPT/HCPCS: 97110; 97162 ==

== ENCOUNTER 2024-05-14 06:03 | Outpatient (REF) | payer OTHER, MEDICARE, MEDICAID, SELFPAY | END 2024-05-14 06:04 | disposition home or self-care (01) | LOC: HO.HOSX 06:03 | PROVIDERS: Visit Provider Physician Assistant | DX: M17.11 Unilateral primary osteoarthritis, right knee (principal); M25.562 Pain in left knee | CPT/HCPCS: 73560; 73562 ==

== ENCOUNTER 2024-05-14 11:40 | Outpatient (AMB) | payer OTHER, MEDICARE, MEDICAID, SELFPAY ==
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
== END 2024-05-14 12:53 | disposition home or self-care (01) ==
PROVIDERS: PCP Physician Assistant; Visit Provider Physician Assistant
DX: Z47.89 Encounter for other orthopedic aftercare (principal); Z96.651 Presence of right artificial knee joint
CPT/HCPCS: 99213; G2211

== ENCOUNTER 2024-05-19 13:40 | Outpatient (AMB) | payer OTHER, MEDICARE, MEDICAID, SELFPAY ==
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
== END 2024-05-19 14:37 | disposition home or self-care (01) ==
PROVIDERS: PCP Physician Assistant; Visit Provider Physician Assistant
DX: Z47.1 Aftercare following joint replacement surgery (principal); Z96.651 Presence of right artificial knee joint
CPT/HCPCS: 99213; G2211

== ENCOUNTER → 2024-05-19 13:40 | Outpatient (BNVA) | payer OTHER, MEDICARE, MEDICAID, SELFPAY | PROVIDERS: PCP Physician Assistant; Visit Provider Physician Assistant ==

== ENCOUNTER 2024-05-20 08:48 | Outpatient (REF) | payer OTHER, MEDICARE, MEDICAID, SELFPAY ==
--- NOTE | ~2024-05-20 | CT_ITS ---
EXAMINATION: CT KNEE WITHOUT CONTRAST, RIGHT CLINICAL INFORMATION: Strain of unspecified quadriceps muscle fascia and tendon. X-rays of the right knee May 14, 2024 COMPARISON: X-ray of the right knee May 14, 2024 TECHNIQUE: CT scan of the right knee is performed without contrast with reconstruction imaging performed at the acquisition workstation This CT examination was performed using dose optimization techniques as appropriate, variously including the following: *Automated exposure control *Adjustment of mA and/or kV according to patient size (this includes techniques or standardized protocols for targeted exams where dose is matched to indication/reason for exam; i.e. extremities or head) *Use of iterative reconstruction technique DLP: 134 mGy-cm FINDINGS: There is a right total knee arthroplasty with components in usual in unchanged position. No periprostatic fracture or suspicious area of lucency. Trace joint effusion There are multiple calcifications or ossifications within the thickened distal quadriceps tendon. This most likely reflects postsurgical result. Cannot exclude intrasubstance partial tearing. No measurable defect in the quadriceps tendon. Similar calcification/ossification is noted on prior radiographs No abnormality in the surrounding muscles. Patella tendon normal. Subcutaneous soft tissues normal. CT/CT knee RT wo IV con IMPRESSION: Postoperative changes related to right total knee arthroplasty which appears intact Trace joint effusion Findings in the quadriceps tendon most likely chronic related to postsurgical change with some ossification/calcification distal quadriceps tendon. Cannot exclude subtle intrasubstance partial tearing with CT scanning. There is no measurable defect. The distal 5.6 cm of the quadriceps is included in the [id number] exam. Electronically signed by: Joe Portillo MD 05/20/2024 12:20 PM SAMANTHA
== END 2024-05-20 08:49 | disposition home or self-care (01) ==
LOC: HO.CT 08:48
PROVIDERS: PCP Physician Assistant; Visit Provider Physician Assistant
DX: S76.111A Strain of right quadriceps muscle, fascia and tendon, initial encounter (principal)
CPT/HCPCS: 73700

== ENCOUNTER 2024-06-13 10:51 | Outpatient (AMB) | payer OTHER, MEDICARE, MEDICAID, SELFPAY ==
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
[2024-06-13 11:04] VITALS: BMI 37.7
== END 2024-06-13 11:25 | disposition home or self-care (01) ==
PROVIDERS: PCP Physician Assistant; Visit Provider Physician Assistant
DX: S76.111A Strain of right quadriceps muscle, fascia and tendon, initial encounter (principal)
CPT/HCPCS: 99214; G2211

== ENCOUNTER 2024-06-25 12:20 | Day surgery (SDC) | payer OTHER, MEDICARE, MEDICAID, SELFPAY ==
--- NOTE | 2024-06-24 10:13 | HO.ANESPROP2 ---
Documented by User: Elizabeth Beck NP 06/24/24 10:16 HPI - Anesthesia Eval Consult details Narrative: 59yo F for Right Quad Tendon Repair s/p R TKA 05/2023 with spinal/block Anesthesia Pre-Procedure Meds Is the patient on any of the following meds?: GLP1/DPP4 PMFSH Active Problems Active Problems: All Active Problems Rupture of right quadriceps tendon (Acute) Tendinitis of right quadriceps tendon (Acute) Achilles tendon sprain (Acute) Achilles tendinitis, left leg (Acute) Status post total knee replacement, right (Acute) Osteoarthritis of knees, bilateral (Acute) Sacroiliac joint pain (Acute) Spondylosis of lumbar region without myelopathy or radiculopathy (Acute) Past Medical History Medical History Hx of vertigo Hiatal hernia Claustrophobia Carpal tunnel syndrome on both sides Numbness Sleep apnea History of cyst of breast Asthma Back pain Osteoarthritis of right knee Mixed hyperlipidemia Type 2 diabetes mellitus without complications Occipital neuralgia Allergic rhinitis Gastro-esophageal reflux disease without esophagitis Depression Bilateral hearing loss DDD (degenerative disc disease), lumbar Anxiety Unspecified asthma, uncomplicated Unspecified osteoarthritis, unspecified site Vitamin D deficiency Degenerative joint disease of knee Chronic pain Chronic right-sided low back pain with sciatica Adenoma Morbid (severe) obesity due to excess calories Family History Family history of problems with anesthesia: No Surgical History Surgical History (Updated 06/25/24 @ 12:56 by Mili Dickens RN) Hx of hand surgery History of excision of pilonidal cyst Hx of laparoscopic gastric banding H/O colonoscopy Status post surgery involving ear History of uvulectomy Hx of section H/O: hysterectomy S/P right knee arthroscopy History of Problems with Anesthesia: No Social History Social History Household Members: None Housing: Apartment Housing Other:: 2nd floor Are you a primary animal caretaker supervisor to a significant other at home: No Do you presently have visiting nurse or other home services: No Patient Tobacco Use Status: Former Tobacco user Use of substances other than those prescribed or required for medical reasons: No Substance Use Type: Marijuana Are you DNR?: No Advance Directives: No Advance Directives Information Provided: Yes Advance Directives Date on File: 05/11/23 service: No Current occupational status: disabled Meds Allergies Allergy/AdvReac Type Severity Reaction Status Date / Time latex [LATEX] Allergy Unknown SWELLING Verified 06/25/24 13:03 Home Medications ?Medication ?Instructions ?Recorded ?Confirmed ?Last Taken ?Type lisinopril 2.5 mg tablet 2.5 mg PO DAILY 06/01/20 06/13/24 Unknown History metformin 500 mg tablet 500 mg PO BID 06/01/20 06/13/24 Unknown History primidone 50 mg tablet 50 mg PO DAILY 06/01/20 06/13/24 Unknown History atorvastatin 40 mg tablet 40 mg PO BEDTIME 05/17/21 06/13/24 Unknown History bupropion HCl 300 mg 24 hr tablet, 300 mg PO DAILY 05/17/21 06/13/24 06/25/24 07:00 History extended release albuterol sulfate 2.5 mg/3 mL 2.5 mg inhalation TID PRN 03/08/23 06/13/24 Unknown History (0.083 %) solution for nebulization Shortness Of Breath Or Wheezing budesonide-formoterol HFA 160 1 inh inhalation BID 03/08/23 06/13/24 Unknown History mcg-4.5 mcg/actuation aerosol inhaler (Symbicort) estradiol 0.05 mg/24 hr semiweekly 1 patch topical 2XW 03/08/23 06/13/24 Unknown History transdermal patch ipratropium bromide 42 mcg (0.06 2 spray intranasal DAILY 03/08/23 06/13/24 Unknown History %) nasal spray hydroxyzine HCl 25 mg tablet 25 mg PO BID Itching 05/01/23 06/13/24 05/08/23 History levocetirizine 5 mg tablet 5 mg PO DAILY 05/01/23 06/13/24 Unknown History montelukast 10 mg tablet 10 mg PO BEDTIME 05/01/23 06/13/24 Unknown History primidone 50 mg tablet 100 mg PO BEDTIME 05/01/23 06/13/24 05/08/23 History semaglutide 2 mg/dose (8 mg/3 mL) mg subcut 05/14/24 06/13/24 Unknown History subcutaneous pen injector (Ozempic) trazodone 50 mg tablet 50 mg PO BEDTIME 05/14/24 06/13/24 Unknown History Assessment and Plan Assessment Anesthesia Assessment: Chart Reviewed Final Anesthetic Review Family History of Problems with Anesthesia: No History of Problems with Anesthesia: No Documented by User: Natacha Tobin MD 06/25/24 14:01 [facility] Past Medical History Medical History Hx of vertigo Hiatal hernia Claustrophobia Carpal tunnel syndrome on both sides Numbness Sleep apnea History of cyst of breast Asthma Back pain Osteoarthritis of right knee Mixed hyperlipidemia Type 2 diabetes mellitus without complications Occipital neuralgia Allergic rhinitis Gastro-esophageal reflux disease without esophagitis Depression Bilateral hearing loss DDD (degenerative disc disease), lumbar Anxiety Unspecified asthma, uncomplicated Unspecified osteoarthritis, unspecified site Vitamin D deficiency Degenerative joint disease of knee Chronic pain Chronic right-sided low back pain with sciatica Adenoma Morbid (severe) obesity due to excess calories Surgical History Surgical History (Updated 06/25/24 @ 12:56 by Mili Dickens, FLETCHER) Hx of hand surgery History of excision of pilonidal cyst Hx of laparoscopic gastric banding H/O colonoscopy Status post surgery involving ear History of uvulectomy Hx of section H/O: hysterectomy S/P right knee arthroscopy Social History Social History Household Members: None Housing: Apartment Housing Other:: 2nd floor Are you a primary animal caretaker supervisor to a significant other at home: No Do you presently have visiting nurse or other home services: No Patient Tobacco Use Status: Former Tobacco user Use of substances other than those prescribed or required for medical reasons: No Substance Use Type: Marijuana Are you DNR?: No Advance Directives: No Advance Directives Information Provided: Yes Advance Directives Date on File: 05/11/23 service: No Current occupational status: disabled Meds Allergies Allergy/AdvReac Type Severity Reaction Status Date / Time latex [LATEX] Allergy Unknown SWELLING Verified 06/25/24 13:03 Home Medications ?Medication ?Instructions ?Recorded ?Confirmed ?Last Taken ?Type lisinopril 2.5 mg tablet 2.5 mg PO DAILY 06/01/20 06/13/24 Unknown History metformin 500 mg tablet 500 mg PO BID 06/01/20 06/13/24 Unknown History primidone 50 mg tablet 50 mg PO DAILY 06/01/20 06/13/24 Unknown History atorvastatin 40 mg tablet 40 mg PO BEDTIME 05/17/21 06/13/24 Unknown History bupropion HCl 300 mg 24 hr tablet, 300 mg PO DAILY 05/17/21 06/13/24 06/25/24 07:00 History extended release albuterol sulfate 2.5 mg/3 mL 2.5 mg inhalation TID PRN 03/08/23 06/13/24 Unknown History (0.083 %) solution for nebulization Shortness Of Breath Or Wheezing budesonide-formoterol HFA 160 1 inh inhalation BID 03/08/23 06/13/24 Unknown History mcg-4.5 mcg/actuation aerosol inhaler (Symbicort) estradiol 0.05 mg/24 hr semiweekly 1 patch topical 2XW 03/08/23 06/13/24 Unknown History transdermal patch ipratropium bromide 42 mcg (0.06 2 spray intranasal DAILY 03/08/23 06/13/24 Unknown History %) nasal spray hydroxyzine HCl 25 mg tablet 25 mg PO BID Itching 05/01/23 06/13/24 05/08/23 History levocetirizine 5 mg tablet 5 mg PO DAILY 05/01/23 06/13/24 Unknown History montelukast 10 mg tablet 10 mg PO BEDTIME 05/01/23 06/13/24 Unknown History primidone 50 mg tablet 100 mg PO BEDTIME 05/01/23 06/13/24 05/08/23 History semaglutide 2 mg/dose (8 mg/3 mL) mg subcut 05/14/24 06/13/24 Unknown History subcutaneous pen injector (Ozempic) trazodone 50 mg tablet 50 mg PO BEDTIME 05/14/24 06/13/24 Unknown History Exam Airway Mallampati Class: II TM Dist: >3cm Neck ROM: Full Heart: rrr Lungs: cta Assessment and Plan Assessment Anesthesia Assessment: Anesthesia Plan Discussed Final Anesthetic Review NPO: Yes ASA Class: II Final Preanesthetic Review: No Changes in Pt Med Stat, Meds/Allgs Chart Reviewed and Consent Obtained/Reviewed Patient Risk: Intermediate Procedure Risk: Low Anesthetic Plan Anesthetic Plan: GA Disposition: Standard PACU
[2024-06-25] VITALS (16 sets, daily range): BP systolic 97–155; BP diastolic 30–83; PULSE 67–91; RESP 15–18; TEMP 36.1–37.2; O2SAT 93–100; BMI 38.1
--- NOTE | 2024-06-25 12:54 | MHC.SHP ---
Pre-Procedural Eval Section A - 24 Hr Update-Section A only Date of Service: 06/25/24 The patient is an INPATIENT: No Changes since office visit: No Cold of Flu in the past 2 weeks, No New Medical Problems, No Changes in Medication and No Patient answered all questions The patient has been examined within 24 hours of the surgical procedure. The History & Physical has been completed within 30 days and I have reviewed it.: Yes Section B - Complete if H&P > 30 days Chief Complaint: Unspecified injury of right quadriceps muscle, fas Allergies: Allergies Allergy/AdvReac Type Severity Reaction Status Date / Time latex [LATEX] Allergy Unknown SWELLING Verified 06/13/24 11:09 Plan I have reviewed the history and physical and performed a pertinent physical examination on my patient. No changes have occurred unless specified. Time Spent With Patient Time: Total time managing care of this patient today ____ minutes.
[2024-06-25] MEDS: Lactated Ringers 1,000 ML 100 ML IVCONT ×2 (13:33→16:49)
[2024-06-25 13:40] LABS: Glucose, Whole Blood 106 mg/dL (60-115)
--- OUTSIDE RECORDS SUMMARY | 2024-06-25 14:17 | XMS_ITS | Clinical Summary ---
Author Organization Patient Business Ser [facility] Address [address] [place] [address] Care Team Providers Care Cnmt Name Role Phone Unavailable Primary Care Provider Unavailabl e Surgical History Surgery Date Site/Laterality Comments SECTION PROCEDURE: OH DELIVERY ONLY BREAST BIOPSY PROCEDURE: OH BX BREAST NEEDLE CORE W/O IMAGING GUIDANCE SPX; COMMENT: Benign HYSTERECTOMY PROCEDURE: HISTORICAL VAGINAL HYSTERECTOMY W/O BSO LAPAROSCOPIC GASTRIC BANDING PROCEDURE: LAP ADJUSTABLE GASTRIC BAND KNEE SURGERY 12/2015 Right PROCEDURE: HISTORICAL KNEE SURGERY; COMMENT: Lateral meniscus tear TYMPANOSTOMY TUBE PLACEMENT 10/2017 Bilateral PROCEDURE: HISTORICAL PE TUBES TONSILLECTOMY PROCEDURE: HISTORICAL TONSILLECTOMY OTHER SURGICAL HISTORY PROCEDURE: HISTORY OTHER; COMMENT: paraesophageal hiatal hernia repair with fundoplication SECTION PROCEDURE: HISTORICAL DELIVERY Medical History Medical History Date Comments Morbid obesity with BMI of 4 0.0-44.9, adult ([facility]) 10/24/2017 DX:Morbid obesity with BMI o f 40.0-44.9, adult ([facility]) Vitamin D deficiency 11/06/2017 DX:Vitamin D deficiency Chronic obstructive lung dis ease ([facility]) 11/06/2017 DX:Chronic obstructive lung disease ([facility]); COMMENT: 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, food and beverage attendant Asthma 11/06/2017 DX:Asthma Anxiety 11/06/2017 DX:Anxiety Degenerative disc disease, lumbar 11/06/2017 DX:Degenerative disc disease, lumbar; COMMENT: Chiropractor ([facility]) Bilateral hearing loss 11/06/2017 DX:Bilate ral hearing loss Depression 11/06/2017 DX:Depression GERD (gastroesophageal reflux disease) 11/06/2017 DX:GERD (gastroesophageal reflux disease) Allergic rhinitis 11/06/2017 DX:Allergic rh initis Occipital neuralgia 11/06/2017 DX:Occipital neuralgia Type 2 diabetes mellitus wit hout complication (CMS/HCC) 10/24/2017 DX:Type 2 diabetes mellitus without complication (HCC) Osteoarthritis 11/06/2017 DX:Osteoarthriti s; COMMENT: NEOS-right knee, also for shoulder Chronic right-sided low back pain without sciatica 11/19/2017 DX:Chronic right-sided low b ack pain without sciatica Chronic pain of right knee 11/19/2017 DX:Ch ronic pain of right knee Family History Medical History Relation Name Comments Breast cancer Aunt maternal Diabetes Brother 1 Saeed Sleep apnea Brother 1 Saeed No Known Problems Brother 2 Al No Known Problems Daughter Prostate cancer Father Dementia Mother Diabetes Mother Other: Fibromyalgia Sister 1 Kristen No Known Problems Sister 2 B Breast cancer Uncle maternal Heart attack Neg Hx Ovarian cancer Neg Hx Stroke Neg Hx Relation Name Status Comments Aunt maternal Alive Brother 1 Saeed Alive Brother 2 Al Alive Daughter Alive Father (Age 70) Maternal Grandfather Maternal Grandmother Mother (Age 70) Paternal Grandfather Paternal Grandmother Sister 1 Kristen Alive Sister 2 B Alive Uncle maternal Alive Social History Tobacco Use Types Packs/Day Years Used Date Smoking Tobacco: Former Cigarettes Q uit: 02/22/2021 Smokeless Tobacco: Never Alcohol Use Standard Drinks/Week Comments Yes 0 (1 standard drink = 0.6 oz pur e alcohol) Sex and Gender Information Value Date Recorded Sex Assigned at Not on file Gender Identity Female 07/24/2020 10:13 AM EST Sexual Orientation Not on file Obstetrics History Plan of Treatment Health Maintenance Due Date Last Done Comments Breast Cancer Screening 1963 Diabetes: Annual GFR (Glomerular Filtration Rate) 1963 Diabetes: Annual Foot Exam 1973 Diabetes: Annual Retina Eye Exam 1973 Cervical Cancer Screening: Pap Smear 02/08/1984 Zoster Vaccines (1 of 2) 2013 Pneumococcal Vaccine: Pediatrics (0 to 5 Years) and At-Risk Patients (6 to 64 Years) (2 of 2 - PCV) 11/12/2019 11/11/2018 Cholesterol Screening (Lipid Panel) 07/20/2020 Colorectal Cancer Screening: Colonoscopy 07/20/2020 Depression Screening 07/20/2020 HIV Screening 07/20/2020 Hepatitis C Screening 07/20/2020 Social Influencers of Health Screening 07/20/2020 Diabetes: Annual Urine Albumin-Creatinine Ratio (uACR) 05/20/2022 Diabetes: Blood Sugar Control Test (HGBA1C) 05/20/2022 RSV Immunization Patients 60+ Years Old (1 - Risk 60-74 years 1-dose series) 2023 COVID-19 Vaccine (2023- season) 2024 03/16/2021, 08/18/2020, 07/27/2020 Influenza Vaccine (#1) 2024 , 03/04/2021, 02/17/2020, Additional history exists DTaP,Tdap,and Td Vaccines (2 - Td or Tdap) 11/11/2028 11/11/2018 HIB Vaccines Aged Out No longer eligi ble based on patient's age to complete this topic HPV Vaccines Aged Out No longer eligi ble based on patient's age to complete this topic Hepatitis A Vaccines Aged Out No long er eligible based on patient's age to complete this topic Hepatitis B Vaccines Aged Out No long er eligible based on patient's age to complete this topic IPV Vaccines Aged Out No longer eligi ble based on patient's age to complete this topic MMR Vaccines Aged Out No longer eligi ble based on patient's age to complete this topic Meningococcal ACWY Vaccine Aged Out N o longer eligible based on patient's age to complete this topic RSV Immunization Patients Under 20 months Aged Out No longer eligible based on patient's age to complete this topic Varicella Vaccines Aged Out No longer eligible based on patient's age to complete this topic
--- NOTE | 2024-06-25 15:04 | P.BOP_ITS ---
Brief Operative Note Date of Service: 06/25/24 Pre-op diagnosis: right qudriceps tendon tear Post-op diagnosis: other (partial tear right qudriceps tendon) Procedure: Repair right quadriceps tendon Implants: [employer] Regeneten Bioinductive implant, large Surgeon: Solitario Soria MD Anesthesia: GLMA and local Was an Senior Quality Control Technician used for this Procedure?: Yes Senior Quality Control Technician: Erica Castañeda Estimated blood loss (mL): 50 IV fluids (mL): 650 Pathology: none sent Condition: stable Disposition: PACU
--- NOTE | 2024-06-25 15:08 | P.OP_ITS ---
Operative Note Operative Note Date of Service: 06/25/24 Narrative: Date of Service: 06/25/24 Pre-op diagnosis: right qudriceps tendon tear Post-op diagnosis: other (partial tear right qudriceps tendon) Procedure: Repair right quadriceps tendon Implants: [employer] Regeneten Bioinductive implant, large Surgeon: Solitario Soria MD Anesthesia: GLMA and local Was an Operator Weapon Locating Radar used for this Procedure?: Yes Operator Weapon Locating Radar: Erica Castañeda Estimated blood loss (mL): 50 IV fluids (mL): 650 Pathology: none sent Condition: stable Disposition: PACU Procedue in detail: Patient was brought to the operating room and placed supine on the surgical table. She was prepped and draped in standard sterile fashion and a time out was called to identify proper site, proper procedure and IV antibiotics per weight were administered. I began by making a ~6 cm incision over the proximal aspect of the incision. I dissected down to the fascia overlying the quadriceps tendon. There were some adhesions between the tnedon and the subcuntaneous tissue. This was release with blunt dissection and Arzate scissors. There was calcification adjacent to a partial thickness teat of the distal quad tendon. I incised longitudinally through the partial tear and the distal tendon. I then debrided the calcific tissue down to bleeding healthy tissue. I irrigated copiously. I then closed the longitudinal incision with vertical mattress fiberwire. I then oversewed a large Regeneten bioinductive implant over the repair site. The wound was irrigated and the knee taken through a full ROM. I was satified that the repair did not compromise function and there as full painless ROM. The fascia was closed and the sub q was closed and the skin with rupert. Sterile dressing were applied and the patient was placed in sterile dressing and brought to the recovery room in stable condition. There were no known complications.
[2024-06-25] MEDS: fentaNYL citrate/PF 100 MCG/2 ML VIAL 50 MCG IVPUSH ×3 (15:18→15:56)
[2024-06-25] MEDS: HYDROmorphone HCl 0.5 MG/0.5 ML SYRINGE 0.25 MG IVPUSH ×2 (16:56→23:32)
--- NOTE | 2024-06-25 20:23 | P.CONHOSP_ITS ---
History of Present Illness Data of Consult Service Date: 06/25/24 Requesting physician: Solitario Soria Primary Care Provider: LEXIS Dodson Reason for consult: medical management Patient is a 59-year-old female with a past medical history significant for HLD, mild persistent asthma, mood disorder, HTN, type 2 diabetes, occipital neuralgia and GERD, status post right quadriceps tendon repair today. She is reporting 9/10 pain but is due for her pain medication. She denies any dizziness, chest pain, shortness of breath, nausea or vomiting. She has been able to have a bowel movement. She does not have any numbness or tingling in the right lower extremity. Review of Systems Constitutional: Constitutional: Denies chills, Denies fatigue, Denies fever(s) and Reports headache(s) (mild) Eyes: Eyes: Denies change in vision ENT: Reports headache(s) (mild), Denies nasal congestion, Denies nasal discharge and Denies sore throat Cardiovascular: Cardiovascular: Denies chest pain, Denies rapid heart rate, Denies leg edema, Denies lightheadedness and Denies dyspnea Respiratory: Respiratory: Denies chest congestion, Denies cough, Denies dyspnea and Denies wheezing Gastrointestinal: Gastrointestinal: Denies diarrhea, Denies nausea and Denies vomiting Genitourinary: Genitourinary: Denies difficulty voiding, Denies dysuria and Denies urinary urgency Musculoskeletal: Musculoskeletal: Reports back pain (chronic) Integumentary/Breasts: Skin/Breast: Denies rash Neurologic: Denies confusion and Reports headache(s) (mild) Psychiatric: Psychiatric: Denies confusion Endocrine: Endocrine: Denies fatigue Hematologic/Lymphatic: Hematologic/Lymphatic: Denies easy bleeding and Denies easy bruising Allergic/Immunologic: Allergic/Immunologic: Denies wheezing [facility] Medical History Hx of vertigo Hiatal hernia Claustrophobia Carpal tunnel syndrome on both sides Numbness Sleep apnea History of cyst of breast Asthma Back pain Osteoarthritis of right knee Mixed hyperlipidemia Type 2 diabetes mellitus without complications Occipital neuralgia Allergic rhinitis Gastro-esophageal reflux disease without esophagitis Depression Bilateral hearing loss DDD (degenerative disc disease), lumbar Anxiety Unspecified asthma, uncomplicated Unspecified osteoarthritis, unspecified site Vitamin D deficiency Degenerative joint disease of knee Chronic pain Chronic right-sided low back pain with sciatica Adenoma Morbid (severe) obesity due to excess calories Surgical History (Updated 06/25/24 @ 12:56 by Mili Dickens RN) Hx of hand surgery History of excision of pilonidal cyst Hx of laparoscopic gastric banding H/O colonoscopy Status post surgery involving ear History of uvulectomy Hx of section H/O: hysterectomy S/P right knee arthroscopy Social History Household Members: None Housing: Apartment Housing Other:: 2nd floor Are you a primary primary care md to a significant other at home: No Do you presently have visiting nurse or other home services: No Patient Tobacco Use Status: Former Tobacco user Use of substances other than those prescribed or required for medical reasons: Yes Substance Use Type: Marijuana Substance Use Type Other:: medical marijuana Substance Use Frequency: Chronic Longstanding Currently Displaying Signs/Symptoms of Drug Intoxication Withdrawal: No Have you been hit, kicked, punched, or otherwise hurt by someone within the past year? If so, by whom?: No Do you feel safe in your current relationship?: Yes Is there a partner from a previous relationship who is making you feel unsafe now?: No Are you DNR?: No Advance Directives: No Advance Directives Information Provided: Yes Advance Directives Date on File: 05/11/23 Do you have a plan to hurt others: No Plan Recently lost weight without trying: Yes How much weight loss: 2-13 pounds Eating poorly because of decreased appetite: Yes Nutrition screen score: 4 Nutrition Risks: No Nutritional Risk Patient : No : No Poor oral hygiene: No service: No Current occupational status: disabled Narrative: no smoking, social etoh. has medical marijuana but does not use Meds Allergies Allergy/AdvReac Type Severity Reaction Status Date / Time latex [LATEX] Allergy Unknown SWELLING Verified 06/25/24 13:03 Active Medications: Current Medications Acetaminophen (Acetaminophen 325 Mg Tablet) 650 mg PO Q6H PRN PRN Reason: Pain, Mild 1-3,fever,headache Aspirin (Aspirin 325 Mg Tablet) 325 mg PO BID IRINA Celecoxib (Celecoxib 200 Mg Capsule) 200 mg PO BID IRINA Hydromorphone HCl (Hydromorphone Hcl 0.5 Mg/0.5 Ml Syringe) 0.25 mg IVPUSH Q4H PRN; Protocol PRN Reason: Pain, Severe (Pain Scale 7-10) Last Admin: 06/25/24 16:56 Dose: 0.25 mg Lactated Ringer's (Lr) 1,000 mls @ 100 mls/hr IVCONT .Q10H REPLACED BY [facility] Last Admin: 06/25/24 16:49 Dose: 100 mls/hr Cefazolin Sodium/Dextrose (Ancef) 2 gm in 50 mls @ 100 mls/hr IV POSTOP ONE Stop: 06/25/24 20:29 Magnesium Hydroxide (Milk Of Magnesia 30 Ml Oral.Susp) 30 ml PO DAILY PRN PRN Reason: Constipation Ondansetron HCl (Ondansetron Hcl 4 Mg/2 Ml Vial) 4 mg IVPUSH Q8H PRN PRN Reason: Nausea and Vomiting Oxycodone HCl (Oxycodone Hcl Immed Release 5 Mg Tablet) 5 mg PO Q4H PRN PRN Reason: Pain, Moderate(Pain Scale 4-6) Oxycodone HCl (Oxycodone Hcl Er 10 Mg Tab.Er.12h) 10 mg PO BID REPLACED BY [facility] Sodium Chloride (0.9 % Sodium Chloride Flush 3 Ml Syringe) 3 ml IVFLUSH QSHIFT REPLACED BY [facility] Last Admin: 06/25/24 16:49 Dose: Not Given Home Medications ?Medication ?Instructions ?Recorded ?Confirmed ?Last Taken ?Type lisinopril 2.5 mg tablet 2.5 mg PO DAILY 06/01/20 06/13/24 Unknown History metformin 500 mg tablet 500 mg PO BID 06/01/20 06/13/24 Unknown History primidone 50 mg tablet 50 mg PO DAILY 06/01/20 06/13/24 Unknown History atorvastatin 40 mg tablet 40 mg PO BEDTIME 05/17/21 06/13/24 Unknown History bupropion HCl 300 mg 24 hr tablet, 300 mg PO DAILY 05/17/21 06/13/24 06/25/24 07:00 History extended release albuterol sulfate 2.5 mg/3 mL 2.5 mg inhalation TID PRN 03/08/23 06/13/24 Unknown History (0.083 %) solution for nebulization Shortness Of Breath Or Wheezing budesonide-formoterol HFA 160 1 inh inhalation BID 03/08/23 06/13/24 Unknown History mcg-4.5 mcg/actuation aerosol inhaler (Symbicort) estradiol 0.05 mg/24 hr semiweekly 1 patch topical 2XW 03/08/23 06/13/24 Unknown History transdermal patch ipratropium bromide 42 mcg (0.06 2 spray intranasal DAILY 03/08/23 06/13/24 U nknown History %) nasal spray hydroxyzine HCl 25 mg tablet 25 mg PO BID Itching 05/01/23 06/13/24 05/08/23 History levocetirizine 5 mg tablet 5 mg PO DAILY 05/01/23 06/13/24 Unknown History montelukast 10 mg tablet 10 mg PO BEDTIME 05/01/23 06/13/24 Unknown History primidone 50 mg tablet 100 mg PO BEDTIME 05/01/23 06/13/24 05/08/23 History semaglutide 2 mg/dose (8 mg/3 mL) mg subcut 05/14/24 06/13/24 Unknown History subcutaneous pen injector (Ozempic) trazodone 50 mg tablet 50 mg PO BEDTIME 05/14/24 06/13/24 Unknown History Physical Exam Vital Signs and Narrative: Vital Signs: Last Vital Signs Temp 99.0 F 06/25/24 19:39 Pulse 91 06/25/24 19:39 Resp 18 06/25/24 19:39 BP 116/59 L 06/25/24 19:39 Pulse Ox 97 06/25/24 19:39 O2 Del Method Room Air 06/25/24 19:39 O2 Flow Rate 2 06/25/24 16:04 BMI result Body Mass Index 38.1 General: AOx3, no acute distress Resp: CTA bilaterally CVS: S1, S2, RRR GI: +BS, NT, no distention Skin: Warm, dry Neuro: Cranial nerves II-XII grossly intact bilaterally. Motor grossly intact bilaterally Extremities: No LE edema. RLE: pedal pulse 2+. normal capillary refill. sensation intact. Psych: Appropriate affect Const: General: No confusion Orientation/consciousness: No confusion Neuro: General: No confusion Results Labs Labs: Laboratory Results - last 24 hr 06/25/24 13:20 POC Glucose 106 Assessment and Plan (1) Rupture of right quadriceps tendon: Status: Acute Plan Patient is a 59-year-old female with a past medical history significant for HLD, mild persistent asthma, mood disorder, HTN, type 2 diabetes, occipital neuralgia and GERD, status post right quadriceps tendon repair today. s/p R quadriceps tendon repair - plan per surgery T2DM - sliding scale insulin - diabetic diet - hold metformin and semaglutide until discharge mild persistent asthma - continue home inhalers HLD - continue statin Mood disorder - continue bupropion and hydroxyzine Obesity - BMI 31.8 - patient on Ozempic Thank you for allowing me to participate in the pt's care. Signing off for now. Please contact the medical team if any questions or concerns.
[2024-06-25] MEDS: Celecoxib 200 MG CAPSULE PO (20:24)
[2024-06-25] MEDS: Acetaminophen 325 MG TABLET 650 MG PO (20:24)
[2024-06-25] MEDS: oxyCODONE HCl Immed Release 5 MG TABLET PO (20:24)
[2024-06-25] MEDS: oxyCODONE HCl ER 10 MG TAB.ER.12H PO (20:24)
[2024-06-25] MEDS: ceFAZolin Sodium/Dextrose,Iso 2 GM/50 ML PIGGYBACK IV (20:25)
[2024-06-25] MEDS: 0.9 % Sodium Chloride Flush 3 ML SYRINGE IVFLUSH (20:25)
[2024-06-25 21:06] LABS: Glucose, Whole Blood 161 mg/dL (60-115)
[2024-06-25] MEDS: Insulin Lispro 100 UNIT/ML 3 ML VIAL SUBCUT (21:52)
[2024-06-26] MEDS: oxyCODONE HCl Immed Release 5 MG TABLET PO ×2 (00:52→06:33)
[2024-06-26] MEDS: Lactated Ringers 1,000 ML 100 ML IVCONT (01:57)
[2024-06-26 03:21] VITALS: BP 104/55; PULSE 72; RESP 18; TEMP 36.9; O2SAT 99
[2024-06-26] MEDS: HYDROmorphone HCl 0.5 MG/0.5 ML SYRINGE 0.25 MG IVPUSH (03:22)
[2024-06-26 07:00] LABS: MANUAL DIFF FLAG NO
[2024-06-26 07:15] LABS: Basophils Percent Auto 0.2 % (0-2); Eosinophils Absolute Auto 0.1 X10*3/uL (0.0-0.4); Eosinophils Percent Auto 0.9 % (0-4); Hematocrit 38.5 % (37.0-47.0); Hemoglobin 12.1 g/dl (12.0-16.0); Imm Gran Abs Auto 0.04 X10*3/uL (0.00-0.03); Imm Gran Pct Auto 0.4 % (0.0-0.4); Lymphocytes Absolute Auto 2.2 X10*3/uL (1.2-4.9); Lymphocytes Percent Auto 24.5 % (20-40); Mean Corpuscular HGB Conc 31.4 g/dl (31.0-35.0); Mean Corpuscular Hemoglobin 29.3 pg (27.0-33.0); Mean Corpuscular Volume 93.2 fL (80.0-98.0); Mean Platelet Volume 10.6 fL (9.4-12.3); Monocytes Absolute Auto 0.7 X10*3/uL (0.1-1.2); Monocytes Percent Auto 7.9 % (2-11); Neutrophils Percent Auto 66.1 % (45-73); Platelet Count 272 X10*3/uL (160-400); Red Blood Count 4.13 X10*6/uL (4.20-5.50); Red Cell Distribution Width 13.8 % (11.0-16.0); White Blood Count 9.1 X10*3/uL (4.8-10.8)
[2024-06-26 07:36] LABS: Glucose, Whole Blood 117 mg/dL (60-115)
[2024-06-26 07:47] VITALS: BP 112/65; PULSE 72; RESP 18; TEMP 36.8; O2SAT 97
[2024-06-26] MEDS: oxyCODONE HCl ER 10 MG TAB.ER.12H PO (08:00)
[2024-06-26] MEDS: Celecoxib 200 MG CAPSULE PO (08:00)
--- NOTE | 2024-06-26 08:29 | P.PNOP_ITS ---
Subjective Subjective Date of Service: 06/26/24 Interval history: Postop day 1 status post right quadriceps tendon repair Patient resting comfortably in bed No acute events overnight Patient reports she does still have some pain in the knee, but it was fairly well managed with pain medications Patient has been ambulatory to the bathroom No other acute complaints or concerns at this time Physical Exam Vital Signs: Vital Signs: Last Vital Signs Temp 98.3 F 06/26/24 07:47 Pulse 72 06/26/24 07:47 Resp 18 06/26/24 07:47 BP 112/65 06/26/24 07:47 Pulse Ox 97 06/26/24 07:47 O2 Del Method Room Air 06/26/24 07:47 O2 Flow Rate 2 06/25/24 16:04 BMI result Body Mass Index 38.1 Extrem: Other: Dressing on right knee clean, dry, intact No evidence of surrounding erythema, ecchymosis No evidence of infection Patient is able to flex and extend the digits of the left foot without d ifficulty Compartments soft, nontender Distal sensation intact Capillary refill brisk Procedures Date of Service Date of Service: 06/26/24 Progress Note: A&P Assessment and plan (1) Rupture of right quadriceps tendon: Status: Acute Plan 1. Status post right quad tendon repair DOS 06/25/2024 Patient appears to be recovering well postoperatively Patient is educated about the typical recovery course Continue pain management Begin DVT prophylaxis with aspirin Continue with weight-bearing as tolerated with a walker Dispo planning-pain management, pending PT/OT eval Time Spent With Patient Time: Total time managing care of this patient today ____ minutes. Quality Stroke Does the patient have a stroke diagnosis?: No VTE Prior VTE?: No VTE Risk Level:: Surgical - high VTE Device Contraindication: N/A - Device Ordered VTE Drug Contraindication: N/A - Med Ordered
--- NOTE | 2024-06-26 09:53 | P.DS_ITS ---
DS: Providers Provider Date of Service: 06/26/24 Date of discharge: 06/26/24 Primary care physician: Elizabeth Sykes PA-C Consults: 06/25/24 16:34 Consult to Hospitalist Routine Comment: Consulting Provider: [facility] Hospitalists Reason For Exam: routine medical management DS: Diagnosis Discharge Diagnosis (1) Rupture of right quadriceps tendon: Status: Acute DS: Summary Hospital Course Hospital Course: Patient is a 59-year-old female who was admitted to the hospital postoperatively after right quadriceps tendon repair, DOS 06/25/2024. The patient underwent a successful right quadriceps tendon repair on 06/25/2024, was transferred to PACU and then to the floor to recover. During their stay, their vitals were stable, afebrile at 98.3 . Labs were unremarkable, H/H 12.1/38.5. POD 1 she was started on aspirin 325 mg for DVT ppx, they also received Physical Therapy services twice a day. Physical therapy should include gait training, ROM to tolerance. She is WBAT with a walker. Prior to discharge, her, incision was clean dry and intact, Aquacel dressing applied. The Aquacel dressing should remain intact and dry at all times. Any concerns with the dressing, please contact orthopedic office. No showering. The plan is to be discharged Time Attestation Discharge Coordination Time (in mins): 30 Quality: Safe Use of Opioids Does Pt have an Active Cancer Diagnosis on the Problem List?: No Quality: Stroke Does the patient have a stroke diagnosis?: No Physical Exam Vital Signs: Vital Signs: Last Vital Signs Temp 98.3 F 06/26/24 07:47 Pulse 72 06/26/24 07:47 Resp 18 06/26/24 07:47 BP 112/65 06/26/24 07:47 Pulse Ox 97 06/26/24 07:47 O2 Del Method Room Air 06/26/24 07:47 O2 Flow Rate 2 06/25/24 16:04 BMI result Body Mass Index 38.1 DS: Data Data Completed and Pending Labs on day of discharge: Laboratory Results - last 24 hr 06/25/24 06/25/24 06/26/24 13:20 21:02 06:00 WBC 9.1 RBC 4.13 L Hgb 12.1 D Hct 38.5 D MCV 93.2 MCH 29.3 MCHC 31.4 RDW 13.8 Plt Count 272 MPV 10.6 Immature Gran % (Auto) 0.4 Neut % (Auto) 66.1 Lymph % (Auto) 24.5 [place] % (Auto) 7.9 Eos % (Auto) 0.9 Baso % (Auto) 0.2 Lymph # (Auto) 2.2 [place] # (Auto) 0.7 Eos # (Auto) 0.1 Baso # (Auto) 0.0 Abs Immat Gran (auto) 0.04 H Absolute Neuts (auto) 6.0 Absolute Nucleated RBC 0.000 Nucleated RBC % (auto) 0.0 POC Glucose 106 161 H 06/26/24 07:19 WBC RBC Hgb Hct MCV MCH MCHC RDW Plt Count MPV Immature Gran % (Auto) Neut % (Auto) Lymph % (Auto) [place] % (Auto) Eos % (Auto) Baso % (Auto) Lymph # (Auto) [place] # (Auto) Eos # (Auto) Baso # (Auto) Abs Immat Gran (auto) Absolute Neuts (auto) Absolute Nucleated RBC Nucleated RBC % (auto) POC Glucose 117 H Discharge Plan Discharge Patient Disposition: Home, Self-Care Referrals: Erica Castañeda PA-C [Physician Envelope Machine Adjuster] - 2 Weeks (07/10/24 11:30 [facility] Orthopedic Surgeons Erica Castañeda PA-C) Elizabeth Alvarez PA [Primary Care Provider] - 1 Week Other Ambulatory Orders: PT Evaluation and Treatment (Routine) Location: None Selected Ordered By: Fahad Rivas Discharge Medications: New aspirin 325 mg Tablet 325 mg PO BID 14 Days Qty: 28 0RF oxycodone 5 mg Tablet 5 mg PO Q4H PRN (Reason: Pain, Moderate(Pain Scale 4-6)) 7 Days Qty: 42 0RF Rx Instructions: Partial Fill upon patient request. Continued acetaminophen 325 mg tablet 650 mg PO Q6H PRN (Reason: for mild pain) Qty: 240 1RF celecoxib 200 mg capsule 200 mg PO BID Qty: 60 1RF primidone 50 mg Tablet 100 mg PO BEDTIME montelukast 10 mg tablet 10 mg PO BEDTIME hydroxyzine HCl 25 mg tablet 25 mg PO BID levocetirizine 5 mg tablet 5 mg PO DAILY metformin 500 mg tablet 500 mg PO BID primidone 50 mg tablet 50 mg PO DAILY lisinopril 2.5 mg tablet 2.5 mg PO DAILY atorvastatin 40 mg tablet 40 mg PO BEDTIME bupropion HCl 300 mg tablet extended release 24 hr 300 mg PO DAILY estradiol 0.05 mg/24 hr patch semiweekly 1 patch topical 2XW budesonide-formoterol [Symbicort] 160-4.5 mcg/actuation HFA aerosol inhaler 1 inh inhalation BID ipratropium bromide 42 mcg (0.06 %) spray,non-aerosol 2 spray intranasal DAILY albuterol sulfate 2.5 mg /3 mL (0.083 %) solution for nebulization 2.5 mg inhalation TID PRN (Reason: Shortness Of Breath Or Wheezing) Ozempic 2 mg/dose (8 mg/3 mL) pen injector subcut trazodone 50 mg tablet 50 mg PO BEDTIME Discharge Orders: Discharge Order (Routine); Ordered 06/26/24 Ordered By: Fahad Rivas Diet: Advance to usual diet Activity on Discharge: Use cane or walker Activity Restrictions/Additional Instructions: Physical Therapy for right quad tendon repair: WBAT, gait training, ? Limit stair climbing ? No showering, no tub bath-keep dressing clean, dry and intact ? No driving x2 weeks ? Continue Aspirin twice a day x 2 weeks ? Follow up with [facility] Orthopedics in 2 weeks: Print Language: Yoruba
--- NOTE | 2024-06-26 11:03 | HO.POSTANES ---
Post Anesthesia Evaluation Post Anesthesia Evaluation Date of Service: 06/26/24 Vital Signs: Vital Signs Temp Pulse Resp BP Pulse Ox O2 Del Method 06/26/24 07:47 98.3 F 72 18 112/65 97 Room Air 06/26/24 03:21 98.4 F 72 18 104/55 L 99 Room Air Anesthesia: General Mental Status: Awake Pain Control: Satisfactory Nausea/Vomiting: None Hydration: Adequate Anesthesia-Related Issues: No Anes. Related Issues
[2024-06-26 11:24] VITALS: BP 112/65; PULSE 72; O2SAT 97
--- NOTE | 2024-06-26 11:44 | MHC.CM.PN ---
Addendum entered by Sandra Ventura RN 06/26/24 11:46: Ortho PA aware patient declines STR and home services. Original Note: Patient lives in an apartment alone. Ambulates w/ cane. Uses walker PRN for long distances. Independent w/ care. No services. PCP Elizabeth Alvarez HCP on file and verified. DP: PT rec STR as patient has 2 flights of stairs to apartment entrance and no elevator. Patient declining STR and home services. Is currently working w/ [facility] for outpatient PT and wishes to continue. Family will stay w/ family for at least one week post op to assist PRN. Medically cleared for dc home. Son in law to transport. CM offered BLS transport and patient declined.
--- NOTE | 2024-06-26 11:48 | PC.NURSE ---
Pt with discharge orders. Home, with no rehab. Discharge orders reviewed with patient, and patient understood and signed paperwork. IV removed. Pt with no complaint of pain at this time. Pt brought downstairs in wheelchair by staff member, and went home by private vehicle
[2024-06-26 12:15] LABS: Glucose, Whole Blood 83 mg/dL (60-115)
[2024-06-26 12:26] VITALS: BP 112/65; PULSE 72; O2SAT 97
== END 2024-06-26 12:31 | disposition home or self-care (01) ==
LOC: HO.SSS 12:21 → HO.S3 16:15
PROVIDERS: Physician Assistant; PCP Physician Assistant; Visit Provider Orthopaedic Surgery
PROC: (CPT 27385; principal; 2024-06-25 15:50)
DX: S76.111A Strain of right quadriceps muscle, fascia and tendon, initial encounter (principal); Z96.651 Presence of right artificial knee joint; M25.561 Pain in right knee; M17.11 Unilateral primary osteoarthritis, right knee; M62.81 Muscle weakness (generalized); X58.XXXA Exposure to other specified factors, initial encounter; Y93.9 Activity, unspecified; Y92.9 Unspecified place or not applicable; Y99.9 Unspecified external cause status; M51.369 Other intervertebral disc degeneration, lumbar region without mention of lumbar back pain or lower extremity pain; G89.29 Other chronic pain; E55.9 Vitamin D deficiency, unspecified; G47.33 Obstructive sleep apnea (adult) (pediatric); F41.9 Anxiety disorder, unspecified; Z79.84 Long term (current) use of oral hypoglycemic drugs; Z79.85 Long-term (current) use of injectable non-insulin antidiabetic drugs; Z79.899 Other long term (current) drug therapy; Z91.040 Latex allergy status
CPT/HCPCS: 27385; 36415; 82947; 85025; 97116; 97161; 97530; C1763; J0131; J0690; J1100; J1171; J1885; J2003; J2250; J2405; J2704; J2795; J3010; J7120

== ENCOUNTER → 2024-06-25 12:20 | Outpatient (BNV) | payer OTHER, MEDICARE, MEDICAID, SELFPAY | PROVIDERS: PCP Physician Assistant; Visit Provider Physician Assistant | DX: S76.111A Strain of right quadriceps muscle, fascia and tendon, initial encounter (principal) | CPT/HCPCS: 99222 ==

== ENCOUNTER → 2024-06-25 12:20 | Outpatient (BNV) | payer OTHER, MEDICARE, MEDICAID, SELFPAY | PROVIDERS: PCP Physician Assistant; Visit Provider Orthopaedic Surgery | DX: S76.111A Strain of right quadriceps muscle, fascia and tendon, initial encounter (principal) | CPT/HCPCS: 27385 ==

== ENCOUNTER → 2024-07-10 11:26 | Outpatient (AMB) | payer OTHER, MEDICARE, MEDICAID, SELFPAY ==
--- OUTSIDE RECORDS SUMMARY | 2024-07-10 11:29 | XMS_ITS | Encounter Summary ---
Author Organization [facility] Address [address] [place] [address] [facility] [place] [address] Care Team Providers Care Viscose Cellar Charge Hand Name Role Phone Bella Kenny MD Primary Care Provider Libby Mckenna MD [facility], [facility] Primary Care Provider Jaylinabl e Libby Loera MD [facility], Pcp Primary Care Provider Cielo e Reason for Visit * Reason Comments E-prescribe Rx Request Encounter Details Date Type Department Care Team Description 02/27/2019 Refill Adult Medicine [address] [address] Bella Kenny MD E-prescribe Rx Request Social History Tobacco Use Types Packs/Day Years Used Date Smoking Tobacco: Every Day Cigarettes 0.5 23 Last attempted to quit: 09/15/2017 Smokeless Tobacco: Never Alcohol Use Standard Drinks/Week Comments Yes 0 (1 standard drink = 0.6 oz pur e alcohol) socailly, infequent Alcohol Habits Answer Date Recorded How often do you have a drink containing alcohol ? Monthly or less 12/23/2019 How many drinks containing a lcohol do you have on a typical day when you are drinking? 3 or 4 12/23/2019 How often do you have six or more drinks on one occasion? Never 12/23/2019 Social Isolation Answer Date Recorded In a typical week, how many times do you talk on the phone with family, friends, or neighbors? More than three times a week 12/23/2019 How often do you get togethe r with friends or relatives? Never 12/23/2019 How often do you attend chur or hindu services? More than 4 times per year 12/23/2019 Do you belong to any clubs o r organizations such as jainism groups, unions, fraternal or athletic groups, or school groups? No 12/23/2019 How often do you attend meet ings of the clubs or organizations you belong to? Never 12/23/2019 Are you now , , , , never or living with a partner? Never 12/23/2019 Physical Activity Answer Date Recorded On average, how many days pe r week do you engage in moderate to strenuous exercise (like walking fast, running, jogging, dancing, swimming, biking, or other activities that cause a light or heavy sweat)? 0 days 12/23/2019 On average, how many minutes do you engage in exercise at this level? 0 min 12/23/2019 Stress Answer Date Recorded Do you feel stress - tense, restless, nervous, or anxious, or unable to sleep at night because your mind is troubled all the time - these days? Only a little 12/23/2019 Financial Resource Strain Answer Date R ecorded How hard is it for you to pa y for the very basics like food, housing, medical care, and heating? Not very hard 12/23/2019 Intimate Partner Violence Answer Date R ecorded Within the last year, have y ou been afraid of your partner or ex-partner? No 12/23/2019 Within the last year, have y ou been humiliated or emotionally abused in other ways by your partner or ex-partner? No Within the last year, have y ou been kicked, hit, slapped, or otherwise physically hurt by your partner or ex-partner? No 12/23/2019 Within the last year, have y ou been raped or forced to have any kind of sexual activity by your partner or ex-partner? No 12/23/2019 Food Insecurity Answer Date Recorded Within the past 12 months, y ou worried that your food would run out before you got money to buy more. Never true 12/23/2019 Within the past 12 months, t he food you bought just didn't last and you didn't have money to get more. Never true 12/23/2019 Transportation Needs Answer Date Record ed In the past 12 months, has l ack of transportation kept you from medical appointments or from getting medications? No 12/03 In the past 12 months, has l ack of transportation kept you from meetings, work, or getting things needed for daily living? No 12/23/2019 Sex Assigned at Date Recorded Not on file documented as of this encounter Miscellaneous Notes * Telephone Encounter - Dagmar Thomas M.A. - 02/27/2019 10:49 AM EDT Last refill 08-30-18 for 6 months, pt is due for medication. Lab Results Component Value Date NA 139 11/11/2018 K 4.3 11/11/2018 CO2 27 11/11/2018 CL 103 11/11/2018 BUN 15 11/11/2018 CREAT 0.95 11/11/2018 GLU 99 11/11/2018 CA 9.4 11/11/2018 GFR > 60 11/11/2018 * Telephone Encounter - Wanda Osorio - 02/27/2019 9:02 AM EDT Patient would like script to be: E-PRESCRIBED/FAXED TO PHARMACY WHEN WAS THE PATIENT'S LAST APPOINTMENT IN ADULT MEDICINE? 02/13/19 WHEN WAS THE LAST TIME THE PATIENT SAW THEIR PCP? Same as above Does patient have an upcoming appointment? Yes 05/09/19 (THE MEDICATION REQUESTED IS ON THE MED LIST ABOVE) All of the medications requested were on the CURRENT MEDS list Did you check the Pharmacy information above?: YES Patient wants: 90 -day supply Is this a mail order prescription request ? NO If the refill is from a FAXED refill request what is the RX # listed on the fax? N/A Patients current insurance carrier is: Pay[place] / [place] / Product Type: MEDICARE [id number] documented in this encounter Plan of Treatment Not on file documented as of this encounter Visit Diagnoses Not on filedocumented in this encounter Care Teams Viscose Cellar Charge Hand Relationship Specialty Start Date End Date Bella Kenny MD PCP - General Internal Medicine 08/20/17 12/07/20 Libby Loera MD PCP - General Internal Medicine 12/08/20 05/23/21 [facility], Pcp PCP - General Internal Medicine 05/24/21 09/25/21 Libby Loera MD PCP - General Internal Medicine 09/26/21 11/15/21 [facility], Pcp PCP - General Internal Medicine 11/16/21 documented as of this encounter
--- OUTSIDE RECORDS SUMMARY | 2024-07-10 11:29 | XMS_ITS | Encounter Summary ---
Author Organization [facility] Address [address] [place] [address] [facility] [place] [place] [address] Care Team Providers Care Director Of Institutional Research Name Role Phone Bella Kenny MD Primary Care Provider Libby Mckenna MD Primary Care Provider [facility], Pcp Primary Care Provider Jaylinabl e Libby Loera MD Primary Care Provider [facility], Pcp Primary Care Provider Cielo e Reason for Visit * Reason Comments E-prescribe Rx Request Encounter Details Date Type Department Care Team Description 12/13/2018 Refill Adult Medicine [address] [address] Bella Kenny MD E-prescribe Rx Request Social [...] How often do you attend chur or buddhism services? More than 4 times per year 12/23/2019 Do you belong to any clubs o r organizations such as religious groups, unions, fraternal or athletic groups, or [...] encounter Miscellaneous Notes * Telephone Encounter - Lorena Villeda M.A. - 12/13/2018 11:01 AM EDT Lab Results Component Value Date NA 139 11/11/2018 K 4.3 11/11/2018 CO2 27 11/11/2018 CL 103 11/11/2018 BUN 15 11/11/2018 CREAT 0.95 11/11/2018 GLU 99 11/11/2018 CA 9.4 11/11/2018 GFR > 60 11/11/2018 Hussein Turner 12/04 * Telephone Encounter - Socorro Arizmendi - 12/13/2018 9:49 AM EDT Patient would like script to be: E-PRESCRIBED/FAXED TO PHARMACY WHEN WAS THE PATIENT'S LAST APPOINTMENT IN ADULT MEDICINE? 12/04/2018 WHEN WAS THE LAST TIME THE PATIENT SAW THEIR PCP? 08/08/2018 Does patient have an upcoming appointment? Yes 02/13/2019 (THE MEDICATION REQUESTED IS ON THE MED [...] / Plan: [place] / Product Type: MEDICARE [id number] documented in this encounter Plan of Treatment Not on file documented as of this encounter Visit Diagnoses Not on filedocumented in this encounter Care Teams Director Of Institutional Research Relationship Specialty Start Date End Date Bella [...]
--- OUTSIDE RECORDS SUMMARY | 2024-07-10 11:29 | XMS_ITS | Encounter Summary ---
Author Organization [facility] Address [address] [place] [address] [facility] [place] [address] Care Team Providers Care Audit Senior Associate Name Role Phone Bella Kenny MD Primary Care Provider Libby Mckenna MD Primary Care Provider [facility], Pcp Primary Care Provider Jaylinabl e Libby Loera MD Primary Care Provider [facility], Pcp Primary Care Provider Cielo e Reason for Visit * Reason Comments E-prescribe Rx Request Encounter Details Date Type Department Care Team Description 05/22/2020 Refill Adult Medicine [address] [address] Bella Kenny MD E-prescribe Rx Request Social [...] How often do you attend chur or episcopalian services? More than 4 times per year 12/23/2019 Do you belong to any clubs o r organizations such as latter day groups, unions, fraternal or athletic groups, or [...] encounter Miscellaneous Notes * Telephone Encounter - Barron Maier M.A. - 05/25/2020 10:04 AM EST Faxed to pharmacy * Telephone Encounter - Lorena Villeda M.A. - 05/24/2020 4:33 PM EST Lab Results Component Value Date NA 139 12/23/2019 K 4.9 12/23/2019 CO2 29 12/23/2019 CL 106 12/23/2019 BUN 13 12/23/2019 CREAT 0.93 12/23/2019 GLU 83 12/23/2019 CA 9.2 12/23/2019 GFR > 60 12/23/2019 * Telephone Encounter - Lara Gilbert - 05/22/2020 10:57 AM EST Patient would like script to be: E-PRESCRIBED/FAXED TO PHARMACY WHEN WAS THE PATIENT'S LAST APPOINTMENT IN ADULT MEDICINE? 03/29/20 WHEN WAS THE LAST TIME THE PATIENT SAW THEIR PCP? Same as above Does patient have an upcoming appointment? Yes 06/08/20 (THE MEDICATION REQUESTED IS ON THE MED [...] insurance carrier is: Payor: [place] / Plan: MEDICARE-[employer] / Product Type: MEDICARE [id number] documented in this encounter Plan of Treatment Not on file documented as of this encounter Visit Diagnoses Not on filedocumented in this encounter Care Teams Audit Senior Associate Relationship Specialty Start Date End Date Bella Kenny MD PCP - General Internal Medicine 08/20/17 12/07/20 Libby Loera MD PCP - General Internal Medicine 12/08/20 05/23/21 [facility], Pcp PCP - General Internal Medicine 05/24/21 09/25/21 Libby Loera MD PCP - General Internal Medicine 09/26/21 11/15/21 [facility], Pcp PCP - General Internal Medicine 11/16/21 documented as of this encounter
--- OUTSIDE RECORDS SUMMARY | 2024-07-10 11:29 | XMS_ITS | Encounter Summary ---
Author Organization [facility] Address [address] [place] [address] GAMALIEL ROMO [address] Care Team Providers Care Consumer Banker Name Role Phone Bella Kenny MD Primary Care Provider Libby Mckenna MD Primary Care Provider [facility], Pcp Primary Care Provider Unavailabl e Libby Loera MD [facility] Primary Care Provider Cielo e Reason for Visit * Reason Comments E-prescribe Rx Request Encounter Details Date Type Department Care Team Description 03/13/2019 Refill Adult Medicine [address] [address] Tiago Ocampo MD [address] [place] [id number] E-prescribe Rx Request Social History Tobacco Use [...] How often do you attend chur or christianity services? More than 4 times per year 12/23/2019 Do you belong to any clubs o r organizations such as yarsani groups, unions, fraternal or athletic groups, or [...] Telephone Encounter - Dagmar Thomas M.A. - 03/13/2019 10:59 AM EDT Last issue date of medication reviewed. Patient is due for medication. Lab Results Component Value Date CHOL 270 11/11/2018 LDL 163 11/11/2018 HDL 59 11/11/2018 TRIG 241 11/11/2018 SGOT 11 11/11/2018 SGPT 16 11/11/2018 * Telephone Encounter - Latisha Rosas - 03/13/2019 9:56 AM EDT Patient would like script to be: E-PRESCRIBED/FAXED TO PHARMACY WHEN WAS THE PATIENT'S LAST APPOINTMENT IN ADULT MEDICINE? 02/13/19 WHEN WAS THE LAST TIME THE PATIENT SAW THEIR PCP? Same as above Does patient have an upcoming appointment? Yes 05/19/19 (THE MEDICATION REQUESTED IS ON THE MED [...] / Plan: [place]ARE[place] / Product Type: MEDICARE [id number] documented in this encounter Plan of Treatment Not on file documented as of this encounter Visit Diagnoses Not on filedocumented in this encounter Care Teams Consumer Banker Relationship Specialty Start Date End Date Bella [...]
--- OUTSIDE RECORDS SUMMARY | 2024-07-10 11:29 | XMS_ITS | Encounter Summary ---
Author Organization [facility] Address [address] [place] [address] [place] [address] Care Team Providers Care Skin Diver Name Role Phone Bella Kenny MD Primary Care Provider Libby Mckenna MD Primary Care Provider [facility], Pcp Primary Care Provider Libby Silva MD [facility] Primary Care Provider Cielo klein Encounter Details Date Type Department Care Team Description 11/29/2018 Telephone Adult [address] [address] Bella Kenny MD Social History Tobacco Use Types Packs/Day Years Used Date Smoking Tobacco: Every Day Cigarettes Last attempted to quit: 09/15/2017 Smokeless Tobacco: Never Alcohol Use Standard Drinks/Week Comments No 0 (1 standard drink = 0.6 oz pur e alcohol) Alcohol Habits Answer Date Recorded How often [...] 12/23/2019 How often do you attend chur ch or christian services? More than 4 times per year 12/23/2019 Do you belong to any clubs o r organizations such as denominational groups, unions, fraternal or athletic groups, or [...] on file documented as of this encounter Plan of Treatment Not on file documented as of this encounter Visit Diagnoses Not on filedocumented in this encounter Care Teams Skin Diver Relationship Specialty Start Date End Date Bella [...]
--- OUTSIDE RECORDS SUMMARY | 2024-07-10 11:29 | XMS_ITS | Encounter Summary ---
Author Organization [facility] Address [address] [place] [address] GAMALIEL ROMO [address] Care Team Providers Care Grocery Manager Name Role Phone Bella Kenny MD Primary Care Provider Libby Mckenna MD Primary Care Provider [facility], Pcp Primary Care Provider Jaylinabl e Libby Loera MD Primary Care Provider [facility], [facility]cp Primary Care Provider Cielo e Reason for Visit * Reason Comments E-prescribe Rx Request Encounter Details Date Type Department Care Team Description 11/24/2018 Refill [address]erm[address] [phone] Vangie Sweeney PA-C E-prescribe Rx Request Social History Tobacco Use [...] How often do you attend chur or buddhist services? More than 4 times per year 12/23/2019 Do you belong to any clubs o r organizations such as tenriism groups, unions, fraternal or athletic groups, or [...] encounter Miscellaneous Notes * Telephone Encounter - Jeannette Solomon M.A. - 11/25/2018 10:47 AM EDT ELEANOR: 11/22/18 F/U : 03/24/19 * Telephone Encounter - Marcelle Farmer - 11/25/2018 9:42 AM EDT Derm patient documented in this encounter Plan of Treatment Not on file documented as of this encounter Visit Diagnoses Not on filedocumented in this encounter Care Teams Grocery Manager Relationship Specialty Start Date End Date Bella [...]
--- OUTSIDE RECORDS SUMMARY | 2024-07-10 11:29 | XMS_ITS | Encounter Summary ---
Author Organization [facility] Address [address] [place] [address] [facility] [place] [address] Care Team Providers Care Director Of Workforce Development Name Role Phone Bella Kenny MD Primary Care Provider Libby Mckenna MD Primary Care Provider [facility], Pcp Primary Care Provider Jaylinabl e Libby Loera MD Primary Care Provider Jolieuniversity [facility], Pcp Primary Care Provider Cielo e Reason for Visit * Reason Comments E-prescribe Rx Request Encounter Details Date Type Department Care Team Description 08/11/2019 Refill Adult Medicine [address] [address] Bella Kenny MD E-prescribe Rx Request Social [...] How often do you attend chur or quaker services? More than 4 times per year 12/23/2019 Do you belong to any clubs o r organizations such as sabianist groups, unions, fraternal or athletic groups, or [...] Telephone Encounter - Barron Maier M.A. - 08/14/2019 9:14 AM EDT Faxed to pharmacy * Telephone Encounter - Dagmar Thomas M.A. - 08/12/2019 8:43 AM EDT Lab Results Component Value Date NA 139 05/19/2019 K 4.7 05/19/2019 CO2 28 05/19/2019 CL 105 05/19/2019 BUN 20 05/19/2019 CREAT 0.82 05/19/2019 GLU 93 05/19/2019 CA 9.6 05/19/2019 GFR > 60 05/19/2019 * Telephone Encounter - Katia Hernandez - 08/11/2019 1:43 PM EDT Patient would like script to be: E-PRESCRIBED/FAXED TO PHARMACY WHEN WAS THE PATIENT'S LAST APPOINTMENT IN ADULT MEDICINE? 05-22-19 WHEN WAS THE LAST TIME THE PATIENT SAW THEIR PCP? 02-13-19 Does patient have an upcoming appointment? Yes 08-25-19 (THE MEDICATION REQUESTED IS ON THE MED LIST ABOVE) One or some of the medications requested were on the HISTORICAL MED list Did you check the Pharmacy information above?: YES Patient wants: 30 -day supply Is this a mail order prescription request ? NO If the refill is from a FAXED refill request what is the RX # listed on the fax? N/A Patients current insurance carrier is: Payor: MEDICARE-[employer] / Plan: [place] / Product Type: MEDICARE [id number] documented in this encounter Plan of Treatment Not on file documented as of this encounter Visit Diagnoses Not on filedocumented in this encounter Care Teams Director Of Workforce Development Relationship Specialty Start Date End Date Bella [...]
--- OUTSIDE RECORDS SUMMARY | 2024-07-10 11:29 | XMS_ITS | Encounter Summary ---
Author Organization [facility] Address [address] [place] [address] GAMALIEL ROMO [address] Care Team Providers Care Forming Operator Name Role Phone Bella Kenny MD Primary Care Provider Libby Mckenna MD Primary Care Provider [facility], Pcp Primary Care Provider Libby Silva MD Primary Care Provider [facility], Pcp Primary Care Provider Cielo klein Encounter Details Date Type Department Care Team Description 11/04/2018 [place] Report Medical Records [address] [place] [id number] Wes Mayer Social History Tobacco Use Types Packs/Day Years [...] often do you attend chur ch or shinto services? More than 4 times per year 12/23/2019 Do you belong to any clubs o r organizations such as temple groups, unions, fraternal or athletic groups, or [...] on filedocumented in this encounter Care Teams Forming Operator Relationship Specialty Start Date End Date Bella [...]
--- OUTSIDE RECORDS SUMMARY | 2024-07-10 11:29 | XMS_ITS | Encounter Summary ---
Author Organization [facility] Address [address] [place] [address] [facility] [place] [address] Care Team Providers Care Welding Equipment Repairer Supervisor Name Role Phone Bella Kenny MD Primary Care Provider Libby Mckenna MD Primary Care Provider [facility], Pcp Primary Care Provider Unavailabl e Libby Loera MD Primary Care Provider [facility], Pcp Primary Care Provider Cielo e Reason for Visit * Reason Comments E-prescribe Rx Request Encounter Details Date Type Department Care Team Description 11/24/2018 Refill Adult Medicine [address] [address] Bella Kenny MD E-prescribe Rx Request Social [...] How often do you attend chur or druze services? More than 4 times per year 12/23/2019 Do you belong to any clubs o r organizations such as synagogue groups, unions, fraternal or athletic groups, or [...] Telephone Encounter - Lorena Villeda M.A. - 11/25/2018 1:36 PM EDT Lab Results Component Value Date HGBA1C 6.3 11/11/2018 MALBUR 9.1 11/11/2018 MALBCR < 8.4 11/11/2018 CHOL 270 11/11/2018 LDL 163 11/11/2018 HDL 59 11/11/2018 TRIG 241 11/11/2018 GLU 99 11/11/2018 CREAT 0.95 11/11/2018 * Telephone Encounter - Lara Brayirez - 11/25/2018 1:22 PM EDT Patient would like script to be: E-PRESCRIBED/FAXED TO PHARMACY WHEN WAS THE PATIENT'S LAST APPOINTMENT IN ADULT MEDICINE? 11/11/18 WHEN WAS THE LAST TIME THE PATIENT SAW THEIR PCP? 08/08/18 Does patient have an upcoming appointment? Yes 02/13/19 (THE MEDICATION REQUESTED IS ON THE MED [...] / Plan: [place] / Product Type: MEDICARE [id number] documented in this encounter Plan of Treatment Not on file documented as of this encounter Visit Diagnoses Not on filedocumented in this encounter Care Teams Welding Equipment Repairer Supervisor Relationship Specialty Start Date End Date Bella [...]
--- OUTSIDE RECORDS SUMMARY | 2024-07-10 11:29 | XMS_ITS | Encounter Summary ---
Author Organization [facility] Address [address] [place] [address] [place] [address] Care Team Providers Care Veterinary Pathologist Name Role Phone Bella Kenny MD Primary Care Provider Libby Mckenna MD Primary Care Provider [facility], Pcp Primary Care Provider Unavailabl e Libby Loera MD Primary [facility] Primary Care Provider Cielo e Reason for Visit * Reason Onset Date Comments Faxed Refill 09/26/2018 Encounter Details Date Type Department Care Team Description 09/26/2018 Refill Adult Medicine [address] [address] Bella Kenny MD Faxed Refill Social History Tobacco Use Types Packs/Day Years [...] often do you attend chur ch or rastafari services? More than 4 times per year 12/23/2019 Do you belong to any clubs o r organizations such as buddhist groups, unions, fraternal or athletic groups, or [...] encounter Miscellaneous Notes * Telephone Encounter - Nell Berumen - 09/26/2018 12:16 PM EDT Patient would like script to be: E-PRESCRIBED/FAXED TO PHARMACY ?? WHEN WAS THE PATIENT'S LAST APPOINTMENT IN ADULT MEDICINE? 09-03-18 ?? WHEN WAS THE LAST TIME THE PATIENT SAW THEIR PCP? 06-06-18 ?? Does patient have an upcoming appointment? Yes 11-11-18 ?? (THE MEDICATION REQUESTED IS ON THE MED LIST ABOVE) All of the medications requested were on the CURRENT MEDS list ?? Did you check the Pharmacy information above?: YES ?? Patient wants: 30 -day supply ?? Is this a mail order prescription request ? NO ?? If the refill is from a FAXED refill request what is the RX # listed on the fax? N/A ?? Patients current insurance carrier is: Payor[place] / Plan: [place] / Product Type: MEDICARE [id number] ? documented in this encounter Plan of Treatment Not on file documented as of this encounter Visit Diagnoses Not on filedocumented in this encounter Care Teams Veterinary Pathologist Relationship Specialty Start Date End Date Bella Kenny MD PCP - General Internal Medicine 08/20/17 12/07/20 Libby Loera MD PCP - General Internal Medicine 12/08/20 05/23/21 [facility], Pcp PCP - General Internal Medicine 05/24/21 09/25/21 iLbby Loera MD PCP - General Internal Medicine 09/26/21 11/15/21 [facility], Pcp PCP - General Internal Medicine 11/16/21 documented as of this encounter
--- OUTSIDE RECORDS SUMMARY | 2024-07-10 11:29 | XMS_ITS | Encounter Summary ---
Author Organization [facility] Address [address] [place] [address] GAMALIEL ROMO [address] Care Team Providers Care Welt Drawer Name Role Phone Libby Loera MD [facility], Pcp Primary Care Provider Libby Silva MD Primary Care Provider [facility], Pcp Primary Care Provider Cielo klein Encounter Details Date Type Department Care Team Description 02/01/2021 Release of Information Medical Records [address] [place] [id number] Abstract, Provider Social History Tobacco Use Types Packs/Day Years [...] often do you attend chur ch or mosque services? More than 4 times per year 12/23/2019 Do you belong to any clubs o r organizations such as spiritism groups, unions, fraternal or athletic groups, or [...] Assigned at Date Recorded Not on file COVID-19 Exposure Response Date Recorded In the last month, have you been in contact with someone who was confirmed or suspected to have Coronavirus / COVID-19? No / Unsure 01/27/2021 1:36 PM EDT documented as of this encounter Plan of Treatment Not on file documented as of this encounter Visit Diagnoses Not on filedocumented in this encounter Care Teams Welt Drawer Relationship Specialty Start Date End Date Libby Loera MD PCP - General Internal Medicine 12/08/20 05/23/21 [facility], Pcp PCP - General Internal Medicine 05/24/21 09/25/21 Libby Loera MD PCP - General Internal Medicine 09/26/21 11/15/21 [facility], Pcp PCP - General Internal Medicine 11/16/21 documented as of this encounter
--- OUTSIDE RECORDS SUMMARY | 2024-07-10 11:29 | XMS_ITS | Clinical Summary ---
Author Organization [facility] Address [address] [facility] [place] [address] Care Team Providers Care Middle School Teacher Name Role Phone Community, Pcp Primary Care Provider Unavailabl e Allergies Active Allergy Reactions Severity Noted Date Comments Latex Hives/Urticaria 12/23/2019 Seasonal Allergies 12/23/2019 Medications Medication Sig Dispensed Refills Start Date End Date Status Fluticasone Furoate-Vilanterol 100-25 MCG/INH AEROSOL POWDER,BREATH ACTIVATED Inhale into the lungs. 0 Active albuterol (PROVENTIL) (2.5 MG/3ML) 0.083% nebulizer solution Take 1 Vial by nebulization every 4 hours as needed. 0 Active Umeclidinium Placida 62.5 MCG/INH AEROSOL POWDER,BREATH ACTIVATED Inhale into the lungs. 0 Active FREESTYLE LANCETS [facility] USE TO CHECK BLOOD SUGAR 1 TIME(S) A DAY. DIAGNOSIS: E11.9 100 Each 5 11/25/2018 Active nabumetone (RELAFEN) 500 MG tablet Take 1 tablet by mouth 2 Times Daily. 180 tablet 1 12/09/2020 Active tramadol (ULTRAM) 50 MG tablet Take 1 tablet by mouth every 6 hours as needed for Pain for up to 14 days. 56 tablet 0 03/08/2021 Active lisinopril (PRINIVIL,ZESTRIL) 2.5 MG tablet Take 1 tablet by mouth daily. 90 tablet 1 03/10/2021 Active primidone (MYSOLINE) 50 MG tablet Take 1.5 Tablets by mouth 2 times daily. 270 tablet 1 03/10/2021 Active buPROPion (WELLBUTRIN XL) 300 MG 24 hr tablet Take 1 tablet by mouth every morning. 90 tablet 1 03/10/2021 Active metformin (GLUCOPHAGE) 500 MG tablet Take 1 tablet by mouth 2 times daily (with meals). 180 tablet 1 03/10/2021 Active atorvastatin (LIPITOR) 40 MG tablet Take 1 tablet by mouth daily. 90 tablet 1 03/10/2021 Active Dulaglutide 1.5 MG/0.5ML Solution Pen-injector Inject 1.5 mg into the skin once a week. 2 mL 5 03/10/2021 Active fluticasone 50 MCG/ACT nasal spray 2 sprays each nostril twice daily x 1 week then once daily as needed. 16 g 3 03/10/2021 Active montelukast (SINGULAIR) 10 MG tablet Take 1 Tablet by mouth at bedtime. 30 Tablet 0 10/14/2021 Active Active Problems Problem Noted Date GAMALI[place] on CPAP 03/10/2021 Insomnia 03/10/2021 Essential tremor 03/10/2021 Body mass index (BMI) 45.0-49.9, adult 1 Left ankle gives out 03/29/2020 Tubular adenoma 12/30/2019 Overview: 12/21 CN Chronic right-sided low back pain withou t sciatica 11/19/2017 DJD (degenerative joint disease) of knee 11/19/2017 Overview: Used to see [facility] Vitamin D deficiency 11/06/2017 Asthma 11/06/2017 Anxiety 11/06/2017 Degenerative disc disease, lumbar 2017 Overview: [facility]ropractor ([facility] Bilateral hearing loss 11/06/2017 Depression 11/06/2017 GERD (gastroesophageal reflux disease) 0 11/06/2017 Allergic rhinitis 11/06/2017 Occipital neuralgia 11/06/2017 Medical marijuana use 10/24/2017 Type 2 diabetes mellitus without complic ation 10/24/2017 Mixed hyperlipidemia 10/24/2017 Resolved Problems Problem Noted Date Resolved Date Chronic obstructive lung disease 11/06/2017 06/06/2018 Overview: Dr. Mayer, accounting officer Latest note 04/2018 - NO COPD but has mod persistent asthma Immunizations Name Administration Dates Next Due COVID-19 (Pfizer) 03/16/2021,08/18/2020,07/27/19 21 Influenza (> 6 Months) 03/05/2021,02/17/2020, Influenza Flu (PT Reported) 03/10/2021, 9 Influenza Vaccine-preservati ve Free-quadrivalent 4 Years 02/28/2019 Influenza Vaccine-quadrivalent 4 Years Plus 02/02 Pneumoccoccal(Adult) Polysaccharide PPSV23 11/11 Tdap 11/11/2018 Family History Medical History Relation Name Comments CA Breast Aunt maternal Diabetes Brother 1 Saeed Sleep Apnea Brother 1 Saeed No Known Problems Brother 2 Al No Known Problems Daughter CA Prostate Father Dementia Mother Diabetes Mother Fibromyalgia Sister 1 rKisten No Known Problems Sister 2 B CA Breast Uncle maternal CA Ovarian Negative Hx MA Negative Hx Stroke Negative Hx Relation Name Status Comments Aunt maternal Alive Brother 1 Saeed Alive Brother 2 Al Alive Daughter Alive Father (Age 70) Maternal Grandfather Maternal Grandmother Mother (Age 70) Paternal Grandfather Paternal Grandmother Sister 1 Kristen Alive Sister 2 B Alive Uncle maternal Alive Social History Tobacco Use Types Packs/Day Years Used Date Smoking Tobacco: Former Cigarettes 0.5 23 Q uit: 02/22/2021 Smokeless Tobacco: Never Tobacco Cessation:Ready to Q uit: No; Counseling Given: Yes Alcohol Use Standard Drinks/Week Comments Yes 0 [...] often do you attend chur ch or cheondoism services? More than 4 times per year 12/23/2019 Do you belong to any clubs o r organizations such as worship groups, unions, fraternal or athletic groups, or [...] Assigned at Date Recorded Not on file Last Filed Vital Signs Vital Sign Reading Time Taken Comments Blood Pressure 128/60 03/10/2021 2:11 PM EDT Pulse 64 03/10/2021 2:11 PM EDT Temperature 36.8 ??C (98.3 ??F) 03/10/2021 2:11 PM ED T Respiratory Rate 12 03/10/2021 2:11 PM EDT Oxygen Saturation 98% 03/09/2021 12:54 PM EDT Inhaled Oxygen Concentration - - Weight 97.5 kg (215 lb) 03/10/2021 2:11 PM EDT Height 154.9 cm (5' 1 ) 03/10/2021 2:11 PM EDT Body Mass Index 40.62 03/10/2021 2:11 PM EDT Plan of Treatment Health Maintenance Due Date Last Done Comments CERVICAL CANCER SCREENING 02/08/1984 SHINGLES VACCINE (1 of 2) 2013 MAMMOGRAM 05/15/2020 05/15/2019, 05/04 (External Completion), 05/07/2018, Additional history exists DEPRESSION SCREEN 12/22/2020 12/23/2019, , 10/24/2017 DIABETES: ANNUAL FOOT EXAM 12/22/2020 12/23/2019, DIABETES: BLOOD SUGAR CONTRO L TEST (HGBA1C) 03/10/2021 12/08/2020, 09/07/2020, 03/29/2020, Additional history exists DIABETES: ANNUAL URINE PROTE IN TEST (MICROALBUMIN) 03/29/2021 03/29/2020, 11/11/2018, 05/24/2018 DIABETES/HEART DISEASE: DIYA AL CHOLESTEROL (LDL) 09/07/2021 09/07/2020, 12/23/2019, 05/19/2019, Additional history exists DIABETES: ANNUAL EYE EXAM 11/26/20212020 (External Completion), 11/27/2019, 10/03/2018, Additional history exists BASELINE HEALTH EXAM 40-64 12/22/2021 12/23/2019 Covid-19 Vaccine (2022-2 4 season) 2024 03/16/2021, 08/18/2020, 07/27/2020 INFLUENZA (#1) 2024 03/10/2021, 10/0 07/2020, 02/17/2020, Additional history exists BMI CHECK/ADVISE 06/04/2024 01/27/2021, 12/2020, 09/07/2020, Additional history exists COLON CANCER SCREENING 02/23/2026 , 02/23/2021 (Completed), 09/04/2014, Additional history exists PNEUMOCOCCAL VACCINE FOR HIG H RISK PATIENTS (#2) 02/08/2028 11/11/2018 DTAP/TDAP/TD (2 - Td or Tdap) 11/11/2028 11/11/2018 HEPATITIS C SCREENING Completed 05/23/2018 Care Teams Middle School Teacher Relationship Specialty Start Date End Date Community, Pcp PCP - General Internal Medicine 11/16/21
--- OUTSIDE RECORDS SUMMARY | 2024-07-10 11:29 | XMS_ITS | Encounter Summary ---
Author Organization [facility] Address [address] [place] [address] [place] [address] Care Team Providers Care Plastic Technician Name Role Phone eBlla Kenny MD Primary Care Provider Libby Mckenna MD Primary [facility], Pcp Primary Care Provider Libby Silva MD [facility] Primary Care Provider Cielo klein Encounter Details Date Type Department Care Team Description 07/08/2019 Crepe Sole Wire Brusher Report Medical Records [address] [place], [place] [address] [address] Abstract, Provider Social History Tobacco Use Types [...] often do you attend chur ch or sabianism services? More than 4 times per year 12/23/2019 Do you belong to any clubs o r organizations such as hoahaoism groups, unions, fraternal or athletic groups, or [...] on filedocumented in this encounter Care Teams Plastic Technician Relationship Specialty Start Date End Date Bella [...]
--- OUTSIDE RECORDS SUMMARY | 2024-07-10 11:29 | XMS_ITS | Encounter Summary ---
Author Organization [facility] Address [address] [place] [address] [place] [address] Care Team Providers Care Family Dinner Service Specialist Name Role Phone Libby Loera MD [facility], Pcp Primary Care Provider Libby Silva MD Primary Care Provider [facility], Pcp Primary Care Provider Cielo klein Encounter Details Date Type Department Care Team Description 01/05/2021 Control Valve Technician Report Medical Records [address] [place] [address] [place] [address] Gastroenterology, [facility] Social History Tobacco Use Types Packs/Day Years [...] Never 12/23/2019 How often do you attend [facility] or taoism services? More than 4 times per year 12/23/2019 Do you belong to any clubs o r organizations such as advent groups, unions, fraternal or athletic groups, or [...] have Coronavirus / COVID-19? No / Unsure 12/22/2020 3:17 PM EDT documented as of this encounter Plan of Treatment Not on file documented as of this encounter Visit Diagnoses Not on filedocumented in this encounter Care Teams Family Dinner Service Specialist Relationship Specialty Start Date End Date Libby Loera MD PCP - General Internal Medicine 12/08/20 05/23/21 Community, Pcp PCP - General Internal Medicine 05/24/21 09/25/21 Libby Loera MD PCP - General Internal Medicine 09/26/21 11/15/21 Community, Pcp PCP - General Internal Medicine 11/16/21 documented as of this encounter
--- OUTSIDE RECORDS SUMMARY | 2024-07-10 11:30 | XMS_ITS | Encounter Summary ---
Author Organization [facility] Address [address] [place] [address] [facility] [place] [address] Care Team Providers Care Heel Compressor Name Role Phone Bella Kenny MD Primary Care Provider Libby Mckenna MD [facility], Pcp Primary Care Provider Unavailabl e Libby Loera MD Primary Care [facility], Pcp Primary Care Provider Cielo e Reason for Visit * Reason Comments E-prescribe Rx Request Encounter Details Date Type Department Care Team Description 06/20/2018 Refill Adult Medicine [address] [address] Bella Kenny MD E-prescribe Rx Request Social History Tobacco Use Types Packs/Day Years Used Date Smoking Tobacco: Former Cigarettes Q uit: 09/15/2017 Smokeless Tobacco: Never Alcohol Use Standard [...] How often do you attend chur or caodaism services? More than 4 times per year 12/23/2019 Do you belong to any clubs o r organizations such as evangelical groups, unions, fraternal or athletic groups, or [...] encounter Miscellaneous Notes * Telephone Encounter - Tess Anderson M.A. - 06/20/2018 9:14 AM EST Lab Results Component Value Date HGBA1C 5.4 05/23/2018 MALBUR 1.5 05/24/2018 MALBCR 1.1 05/24/2018 CHOL 262 05/23/2018 LDL 164 05/23/2018 HDL 69 05/23/2018 TRIG 148 05/23/2018 GLU 109 05/23/2018 CREAT 1.0 05/23/2018 * Telephone Encounter - Lara Gilbert - 06/20/2018 8:04 AM EST Patient would like script to be: E-PRESCRIBED/FAXED TO PHARMACY WHEN WAS THE PATIENT'S LAST APPOINTMENT IN ADULT MEDICINE? 06/06/18 WHEN WAS THE LAST TIME THE PATIENT SAW THEIR PCP? Same as above Does patient have an upcoming appointment? Yes 08/08/18 (THE MEDICATION REQUESTED IS ON THE MED [...] / Plan: [place] / Product Type: MEDICARE [id number] documented in this encounter Plan of Treatment Not on file documented as of this encounter Visit Diagnoses Not on filedocumented in this encounter Care Teams Heel Compressor Relationship Specialty Start Date End Date Bella [...]
--- OUTSIDE RECORDS SUMMARY | 2024-07-10 11:30 | XMS_ITS | Encounter Summary ---
Author Organization [facility] Address [address] [place] [address] [place] [address] Care Team Providers Care Fuselage Framer Name Role Phone Bella Kenny MD Primary Care Provider Libby Mckenna MD Primary Care Provider Juan chaudhary [facility], Pcp Primary Care Provider Jaylinabl e Libby Loera MD Primary Care Provider [facility], Pcp Primary Care Provider Cielo e Reason for Visit * Reason Comments E-prescribe Rx Request Encounter Details Date Type Department Care Team Description 08/03/2018 Refill [address]erm[address] [phone] Vangie Sweeney PA-C E-prescribe Rx Request Social [...] How often do you attend chur or mandaen services? More than 4 times per year 12/23/2019 Do you belong to any clubs o r organizations such as druze groups, unions, fraternal or athletic groups, or [...] encounter Miscellaneous Notes * Telephone Encounter - Hanh Gruber M.A. - 08/14/2018 12:56 PM EDT Wrong pool * Telephone Encounter - Sheeba Christian M.A. - 08/05/2018 11:46 AM EST ELEANOR 06/21/18 No follow up appt Last refill 06/12/18 with no refills * Telephone Encounter - Sheeba Jackson - 08/05/2018 9:38 AM EST Derm patient documented in this encounter Plan of Treatment Not on file documented as of this encounter Visit Diagnoses Not on filedocumented in this encounter Care Teams Fuselage Framer Relationship Specialty Start Date End Date Bella [...]
--- OUTSIDE RECORDS SUMMARY | 2024-07-10 11:30 | XMS_ITS | Encounter Summary ---
Author Organization [facility] Address [address] [place] [address] [facility] [place] [address] Care Team Providers Care Transformer Mechanic Name Role Phone Bella Kenny MD Primary Care Provider Libby Mckenna MD Primary Care [facility], Pcp Primary Care Provider Jaylinabl e Libby Loera MD Primary Care [facility], Pcp Primary Care Provider Cielo e Reason for Visit * Reason Comments E-prescribe Rx Request Encounter Details Date Type Department Care Team Description 08/25/2019 Refill Adult Medicine [address] [address] Bella Kenny MD E-prescribe Rx Request Social [...] How often do you attend chur or moravian services? More than 4 times per year 12/23/2019 Do you belong to any clubs o r organizations such as christianity groups, unions, fraternal or athletic groups, or [...] encounter Miscellaneous Notes * Telephone Encounter - Vangie Waddell - 08/25/2019 4:33 PM EDT Patient would like script to be: E-PRESCRIBED/FAXED TO PHARMACY WHEN WAS THE PATIENT'S LAST APPOINTMENT IN ADULT MEDICINE? 08/25/2019 WHEN WAS THE LAST TIME THE PATIENT SAW THEIR PCP? Same as above Does patient have an upcoming appointment? Yes 10/07/2019 (THE MEDICATION REQUESTED IS ON THE MED [...] / Plan: [place] / Product Type: MEDICARE [id number] * Telephone Encounter - Brooke Chinchilla - 08/25/2019 4:32 PM EDT Patient would like script to be: E-PRESCRIBED/FAXED TO PHARMACY WHEN WAS THE PATIENT'S LAST APPOINTMENT IN ADULT MEDICINE? 08/25/19 WHEN WAS THE LAST TIME THE PATIENT SAW THEIR PCP? Same as above Does patient have an upcoming appointment? Yes 10/07/19 (THE MEDICATION REQUESTED IS ON THE MED [...] insurance carrier is: Pay[place] / Plan: MEDICARE-Ecast / Product Type: MEDICARE [id number] documented in this encounter Plan of Treatment Not on file documented as of this encounter Visit Diagnoses Not on filedocumented in this encounter Care Teams Transformer Mechanic Relationship Specialty Start Date End Date Bella Kenny MD PCP - General Internal Medicine 08/20/17 12/07/20 Libby Loera MD PCP - General Internal Medicine 12/08/20 05/23/21 [facility], Pcp PCP - General Internal Medicine 05/24/21 09/25/21 Libby Loera MD PCP - General Internal Medicine 09/26/21 11/15/21 Community, Pcp PCP - General Internal Medicine 11/16/21 documented as of this encounter
--- OUTSIDE RECORDS SUMMARY | 2024-07-10 11:30 | XMS_ITS | Encounter Summary ---
Author Organization [facility] Address [address] [place] [address] [place] [address] Care Team Providers Care Professor Of Exercise Science Name Role Phone Bella Kenny MD Primary Care Provider Libby Mckenna MD Primary Care Provider [facility], Pcp Primary Care Provider Libby Silva MD [facility] Primary Care Provider Cielo klein Encounter Details Date Type Department Care Team Description 12/29/2019 Topper Press Operator Report Medical Records [address] [place] [address] Lakshmi Marks PA-C Social History Tobacco Use Types Packs/Day Years [...] often do you attend chur ch or mandaeism services? More than 4 times per year 12/23/2019 Do you belong to any clubs o r organizations such as holiness groups, unions, fraternal or athletic groups, or [...] on filedocumented in this encounter Care Teams Professor Of Exercise Science Relationship Specialty Start Date End Date Bella [...]
--- OUTSIDE RECORDS SUMMARY | 2024-07-10 11:30 | XMS_ITS | Encounter Summary ---
Author Organization [facility] Address [address] [place] [address] [place] [address] Care Team Providers Care Account Underwriter Name Role Phone Bella Kenny MD Primary Care Provider Libby Mckenna MD Primary Care Provider [facility], Pcp Primary Care Provider Libby Silva MD [facility] Primary Care Provider Cielo klein Encounter Details Date Type Department Care Team Description 11/21/2017 PNO Controlled Substance Contract Medical Records [address] [place] [address] [place] [address] Abstract, Provider Social History Tobacco Use Types [...] often do you attend chur ch or congregational services? More than 4 times per year [...] on filedocumented in this encounter Care Teams Account Underwriter Relationship Specialty Start Date End Date Bella [...]
--- OUTSIDE RECORDS SUMMARY | 2024-07-10 11:30 | XMS_ITS | Encounter Summary ---
Author Organization [facility] Address [address] [place] [address] [place] [address] Care Team Providers Care Small Business Sales Representative Name Role Phone Bella Kenny MD Primary Care Provider Libby Mckenna MD Primary Care Provider Juan chaudhary [facility], Pcp Primary Care Provider Jaylinabl e Libby Loera MD Primary Care Provider [facility], Pcp Primary Care Provider Cielo e Reason for Visit * Reason Comments E-prescribe Rx Request Encounter Details Date Type Department Care Team Description 08/05/2018 Refill [address]erm[address] [phone] Vangie Sweeney PA-C E-prescribe Rx Request Social [...] How often do you attend chur or yazidi services? More than 4 times per year 12/23/2019 Do you belong to any clubs o r organizations such as pentecostalism groups, unions, fraternal or athletic groups, or [...] Miscellaneous Notes * Telephone Encounter - Vangie Sweeney P.A.-C. - 08/14/2018 3:26 PM EDT Just so you know when I sign a prescription, it automatically routes to the [facility] pool unless Idelete it (sometimes I do not catch it). I did not set it up that way. It is an IT problem * Telephone Encounter - Hanh Gruber M.A. - 08/14/2018 12:57 PM EDT Wrong pool documented in this encounter Plan of Treatment Not on file documented as of this encounter Visit Diagnoses Not on filedocumented in this encounter Care Teams Small Business Sales Representative Relationship Specialty Start Date End Date Bella [...]
--- OUTSIDE RECORDS SUMMARY | 2024-07-10 11:30 | XMS_ITS | Encounter Summary ---
Author Organization [facility] Address [address] [place] [address] GAMALIEL ROMO [address] Care Team Providers Care Ripshear Operator Name Role Phone Bella Kenny MD Primary Care Provider Libby Mckenna MD Primary Care Provider [facility] Of [facility], Pcp Primary Care Provider Libby Silva MD Primary [facility] Primary Care Provider Cielo klein Encounter Details Date Type Department Care Team Description 10/24/2017 Orders Only Adult Medicine [address] [address] Tiago Ocampo MD [address] [place] [id number] Encounter for long-term (current) use of medications (Primary Dx) Social History Tobacco Use Types Packs/Day Years [...] often do you attend chur ch or yarsanism services? More than 4 times per year 12/23/2019 Do you belong to any clubs o r organizations such as islam groups, unions, fraternal or athletic groups, or [...] on file documented as of this encounter Results * OXYCODONE, URINE (10/25/2017 3:44 PM EDT) URINE OXYCODONE LEVEL NEGATIVE NEGATIVE 10/25/2017 5:01 PM EDT [facility] 10/25/2017 3:44 PM EDT 10/25/2017 3:44 PM EDT Tiago Ocampo MD LAB [facility] [address] [facility] * (ABNORMAL) DRUG OF ABUSE SCREEN (10/25/2017 3:44 PM EDT) AMPHETAMINE, URINE NEGATIVE NEGATIVE 10/25/2017 5:01 PM EDT [facility] BARBITURATES, URINE NEGATIVE NEGATIVE 10/25/2017 5:01 PM EDT [facility] BENZODIAZEPINE, URINE NEGATIVE NEGATIVE 10/25/2017 5:01 PM EDT [facility] COCAINE, URINE NEGATIVE NEGATIVE 10/25/2017 5:01 PM EDT [facility] OPIATES, URINE NEGATIVE NEGATIVE 10/25/2017 5:01 PM T [facility] MARIJUANA(THC), URINE POSITIVE(A) NEGATIVE 10/25/2017 5:01 PM T [facility] Comment: Semi-quantitative urine assay for screening purposes only. Unconfirmed screening results should not be used for non-medical purposes. SENT FOR CONFIRMATION BY ALTERNATE METHOD 10/25/2017 3:44 PM EDT 10/25/2017 3:44 PM EDT Tiago Ocampo MD LAB [facility] [address] [place] [address] * CHG DRUG SCREENING OPIATES 1 OR MORE (10/25/2017 3:44 PM EDT) Codeine GCMS Negative ng/mL 10/30/2017 2:06 PM EDT [facility] Morphine GCMS Negative ng/mL 10/30/2017 2:06 PM EDT [facility] Hydromorphone GCMS Negative ng/mL 2017 2:06 PM EDT [facility] Hydrocodone GCMS Negative ng/mL 10/31/19 18 2:06 PM EDT [facility] PAIN OPIATE CREAT 66 20 - 250 mg/dL 10/30/2017 2:06 PM EDT [facility] PAIN OPIATE ADULTERANT Negative 10/30/2017 2:06 PM EDT [facility] Comment: ? Confirmation (LC/MS/MS) Decision Limits ??Morphine ?25 ng/mL ??Codeine ? 25 ng/mL ??Hydrocodone ? 25 ng/mL ??Hydromorphone ? 25 ng/mL ??Oxycodone ? 25 ng/mL ??Oxymorphone ? 25 ng/mL ??Adulterant Decision Limit: ?? General Oxidants ? 200 ug/mL ??The adulterant assay tests for General Oxidants, ??including Chromates and Nitrites. ??Adulterants are ??substances either ingested or added directly to a ??urine specimen to prevent the detection of drug use. If applicable, any drug confirmation testing reported here was developed and the performance characteristics determined by [facility]. This confirmation testing has not been cleared or approved by the FDA. The laboratory is regulated under CLIA as qualified to perform high-complexity testing. This test is used for patient testing purposes. It should not be regarded as investigational or for research. Test performed at [facility], [facility] [place] ??[address] ? [phone] Joe Turner MD ??- [employer] Oxycodone GCMS Negative ng/mL 10/30/2017 2:06 PM EDT [facility] Oxymorphone GCMS Negative ng/mL 10/31/19 2:06 PM EDT [facility] 10/25/2017 3:44 PM EDT 10/25/2017 3:44 PM EDT Tiago Ocampo MD LAB [facility] documented in this encounter Visit Diagnoses Diagnosis Encounter for long-term (current) use of medications- Primary Encounter for long-term (current) use of other medications documented in this encounter Care Teams Ripshear Operator Relationship Specialty Start Date End Date Bella Kenny MD PCP - General Internal Medicine 08/20/17 12/07/20 Libby Loera MD PCP - General Internal Medicine 12/08/20 05/23/21 On License Of [facility], Pcp PCP - General Internal Medicine 05/24/21 09/25/21 Libby Loera MD PCP - General Internal Medicine 09/26/21 11/15/21 [facility], Pcp PCP - General Internal Medicine 11/16/21 documented as of this encounter
--- OUTSIDE RECORDS SUMMARY | 2024-07-10 11:30 | XMS_ITS | Clinical Summary ---
Author Organization Patient Business Ser [facility] Address [address] [place] [address] Care Team Providers Care Septic Pump Truck Driver Name Role Phone Unavailable Primary Care Provider Unavailabl e Surgical History Surgery Date Site/Laterality Comments SECTION PROCEDURE: UT DELIVERY ONLY BREAST BIOPSY PROCEDURE: UT BX BREAST NEEDLE CORE W/O IMAGING GUIDANCE [...] adult ([facility]) 10/24/2017 DX:Morbid obesity with BMI o f 40.0-44.9, adult ([facility]) Vitamin D deficiency 11/06/2017 DX:Vitamin D deficiency Chronic obstructive lung dis ease ([facility]) 11/06/2017 DX:Chronic obstructive lung disease ([facility]); COMMENT: Dr. Mayer, auto leasing manager Asthma 11/06/2017 DX:Asthma Anxiety 11/06/2017 DX:Anxiety Degenerative [...]
--- OUTSIDE RECORDS SUMMARY | 2024-07-10 11:30 | XMS_ITS | Encounter Summary ---
Author Organization [facility] Address [address] [place] [address] GAMALIEL ROMO [address] Care Team Providers Care Software Developer Consultant Name Role Phone Bella Kenny MD Primary Care Provider Libby Mckenna MD Primary Care Provider [facility], Pcp Primary Care Provider Libby Silva MD Primary Care Provider [facility], Pcp Primary Care Provider Cielo klein Encounter Details Date Type Department Care Team Description 06/17/2018 Transfer Records Medical Records [address] [place] [id number] Social History Tobacco Use Types Packs/Day Years [...] Never 12/23/2019 How often do you attend [facility] or synagogue services? More than 4 times per year 12/23/2019 Do you belong to any clubs o r organizations such as zoroastrianism groups, unions, fraternal or athletic groups, or [...] on filedocumented in this encounter Care Teams Software Developer Consultant Relationship Specialty Start Date End Date Bella [...]
--- NOTE | 2024-07-10 11:33 | A.OFFVIS_ITS ---
Intake Visit Reasons: PO RT quad tendon repair 06/25/24 NE Intake Note: Leanne is a 59 year old female who presents today for her first post operative appointment s/p RT quad tendon repair 06/25/24 NE. Hx of right TKA on 05/08/23 NE. Patient states that she is able to move her knee more after surgery. She mentions that she having pain on the lateral aspect of the knee. Allergies latex [LATEX] Allergy (Unknown, Verified 07/10/24 11:37) SWELLING HPI HPI PO RT quad tendon repair 06/25/24 NE: Details: Ms. Jimenez has a 59-year-old female who presents to the office today for routine follow-up status post right quadriceps tendon repair with collagen patch performed on 06/25/[address] Soria. [facility] Medical History Hx of vertigo Hiatal hernia Claustrophobia Carpal tunnel syndrome on both sides Numbness Sleep apnea History of cyst of breast Asthma Back pain Osteoarthritis of right knee Mixed hyperlipidemia Type 2 diabetes mellitus without complications Occipital neuralgia Allergic rhinitis Gastro-esophageal reflux disease without esophagitis Depression Bilateral hearing loss DDD (degenerative disc disease), lumbar Anxiety Unspecified asthma, uncomplicated Unspecified osteoarthritis, unspecified site Vitamin D deficiency Degenerative joint disease of knee Chronic pain Chronic right-sided low back pain with sciatica Adenoma Morbid (severe) obesity due to excess calories Surgical History (Updated 07/04/24 @ 00:02 by Olvin Mares) Hx of hand surgery History of excision of pilonidal cyst Hx of laparoscopic gastric banding H/O colonoscopy Status post surgery involving ear History of uvulectomy Hx of section H/O: hysterectomy S/P right knee arthroscopy Social History Household Members: None Housing: Apartment Housing Other:: 2nd floor Are you a primary care transition mgr to a significant other at home: No Do you presently have visiting nurse or other home services: No Patient Tobacco Use Status: Former Tobacco user Substance Use Type: Marijuana Advance Directives Date on File: 05/11/23 service: No Current occupational status: disabled Review of Systems Const All systems reviewed & are unremarkable except as noted in HPI and below Physical Exam Const General: cooperative, healthy appearing and no acute distress Resp Effort & Inspection: normal respiratory effort and able to speak in complete sentences Cardio Rate: regular rate Peripheral pulses: Peripheral pulses 2+ throughout Skin Lesions: no lesions Rashes: no rashes Extrem Other: Right knee incision site is clean dry and intact. Diandra intact. No surrounding erythema or drainage. No signs of infection. Range of motion 0-90. NVI. Assessment & Plan Assessment & Plan (1) Status post total knee replacement, right: Code(s): Z96.651 - Presence of right artificial knee joint Category: Surgical (2) Rupture of right quadriceps tendon: Code(s): S76.111A - Strain of right quadriceps muscle, fascia and tendon, initial encounter Category: Medical Plan Ms. Jimenez is a 59-year-old female who presents to the office today status post right quad tendon repair with collagen patch performed by Dr. Soria on 06/25/2024. While the office today, there are no signs of infection. Diandra removed. Steri-Strips applied. She will work with Physical therapy on range of motion. She does not require a brace at this time. There are no ghhjf-xk-djljph restrictions. She will follow up in [address] Soria, sooner if needed. Coding Level of Care Code Global (77812) Diagnoses Status post total knee replacement, right Z96.651 Rupture of right quadriceps tendon S76.111A
== END | disposition home or self-care (01) ==
PROVIDERS: PCP Physician Assistant; Visit Provider Physician Assistant
CPT/HCPCS: 99024

== ENCOUNTER 2024-08-07 12:59 | Outpatient (AMB) | payer OTHER, MEDICARE, MEDICAID, SELFPAY ==
--- NOTE | 2024-08-07 13:01 | MHC.OFFVIS ---
Intake Visit Reasons: PO RT quad tendon repair 06/25/24 NE Intake Note: Leanne is a 59 year old female who presents today for a post operative appointment 6 weeks s/p Right Quad Tendon Repair 06/25/24. Hx of right TKA on 05/08/23 NE. Patient reports that she is doing well, she continues to have some pain. She is utilizing crutches. She reports that her numbness has returned on the medial and superior aspect of the knee Allergies latex [LATEX] Allergy (Unknown, Verified 07/10/24 11:37) SWELLING HPI HPI PO RT quad tendon repair 06/25/24 NE: Details: Leanne is a 59 year old female who presents today for a post operative appointment 6 weeks s/p Right Quad Tendon Repair 06/25/24. Hx of right TKA on 05/08/23 NE. Patient reports that she is doing well, she continues to have some pain. She is utilizing crutches. She reports that her numbness has returned on the medial and superior aspect of the knee. [facility] Medical History Hx of vertigo Hiatal hernia Claustrophobia Carpal tunnel syndrome on both sides Numbness Sleep apnea History of cyst of breast Asthma Back pain Osteoarthritis of right knee Mixed hyperlipidemia Type 2 diabetes mellitus without complications Occipital neuralgia Allergic rhinitis Gastro-esophageal reflux disease without esophagitis Depression Bilateral hearing loss DDD (degenerative disc disease), lumbar Anxiety Unspecified asthma, uncomplicated Unspecified osteoarthritis, unspecified site Vitamin D deficiency Degenerative joint disease of knee Chronic pain Chronic right-sided low back pain with sciatica Adenoma Morbid (severe) obesity due to excess calories Surgical History (Updated 07/04/24 @ 00:02 by Olvin Mares) Hx of hand surgery History of excision of pilonidal cyst Hx of laparoscopic gastric banding H/O colonoscopy Status post surgery involving ear History of uvulectomy Hx of section H/O: hysterectomy S/P right knee arthroscopy Social History Household Members: None Housing: Apartment Housing Other:: 2nd floor Are you a primary residential care facility manager to a significant other at home: No Do you presently have visiting nurse or other home services: No Patient Tobacco Use Status: Former Tobacco user Substance Use Type: Marijuana Advance Directives Date on File: 05/11/23 service: No Current occupational status: disabled Physical Exam Extrem Other: inc c/d/i quad intact full extension and 125 deg flexion Assessment & Plan Assessment & Plan (1) Rupture of right quadriceps tendon: Code(s): S76.111A - Strain of right quadriceps muscle, fascia and tendon, initial encounter Category: Medical Plan: Traumatic rupture of right quad in setting of prior TKA. She presented late and overall is doing better than expected. Caution with activity and don't overdo flexion. Continue quad strengthening and f/u 6 weeks Coding Level of Care Code Global (90016) Diagnoses Rupture of right quadriceps tendon S76.111A
--- OUTSIDE RECORDS SUMMARY | 2024-08-07 15:41 | XMS_ITS | Encounter Summary ---
Author Organization [facility] Address [address] [place] [address] [place] [address] Care Team Providers Care Electric Truck Operator Name Role Phone Bella Kenny MD Primary Care Provider Libby Mckenna MD Primary Care Provider [facility], Pcp Primary Care Provider Libby Silva MD Primary [facility] Primary Care Provider Cielo klein Encounter Details Date Type Department Care Team Description 11/29/2018 Telephone Adult Medicine [address] [address] Bella Kenny MD Social History Tobacco Use [...] any clubs o r organizations such as mosque groups, unions, fraternal or athletic groups, or [...] on filedocumented in this encounter Care Teams Electric Truck Operator Relationship Specialty Start Date End Date [...]
--- OUTSIDE RECORDS SUMMARY | 2024-08-07 15:41 | XMS_ITS | Clinical Summary ---
Author Organization Patient Business Ser [facility] Address [address] [place] [address] Care Team Providers Care Summer Associate Name Role Phone Unavailable Primary Care Provider Unavailabl e Surgical History Surgery Date Site/Laterality Comments SECTION PROCEDURE: NE DELIVERY ONLY BREAST BIOPSY PROCEDURE: NE BX BREAST NEEDLE CORE W/O IMAGING GUIDANCE [...] obesity with BMI of 4 0.0-44.9, adult ([facility]) 10/24/2017 DX:Morbid obesity with BMI o f 40.0-44.9, adult ([facility]) Vitamin D deficiency 11/06/2017 DX:Vitamin D deficiency Chronic obstructive lung dis ease ([facility]) 11/06/2017 DX:Chronic obstructive lung disease ([facility]); COMMENT: Dr. Mayer, business services assistant Asthma 11/06/2017 DX:Asthma Anxiety 11/06/2017 DX:Anxiety Degenerative [...] drink = 0.6 oz pur e alcohol) Comments Unknown Sex and Gender Information Value Date Recorded Sex Assigned at Not on file Legal Sex Female 1:53 PM EST Gender Identity Female 07/24/2020 10:13 AM EST Sexual Orientation Not on file Obstetrics History Plan of Treatment Health Maintenance Due Date Last Done Comments Breast Cancer Screening 1963 Diabetes: Annual GFR (Glomerular Filtration Rate) 1963 Diabetes: Annual Foot Exam 1973 Diabetes: Annual Retina Eye Exam 1973 Cervical Cancer Screening: Pap Smear 02/08/1984 Zoster Vaccines (1 of 2) 2013 Pneumococcal Vaccine: 50+ Years (2 of 2 - PCV) 11/12/2019 11/11/2018 Pneumococcal Vaccine: Pediatrics (0 to 5 Years) [...] 60-74 years 1-dose series) 2023 COVID-19 Vaccine ( - season) 2024 03/16/2021, 08/18/2020, 07/27/2020 Influenza Vaccine [...] patient's age to complete this topic Meningococcal B Vacine Aged Out No lo nger eligible based on patient's age to complete this topic RSV Immunization Patients Under 20 months Aged Out No longer eligible based on patient's age to complete this topic Varicella Vaccines Aged Out No longer eligible based on patient's age to complete this topic
--- OUTSIDE RECORDS SUMMARY | 2024-08-07 15:41 | XMS_ITS | Encounter Summary ---
Author Organization [facility] Address [address] [place] [address] GAMALIEL ROMO [address] Care Team Providers Care Greens Tier Name Role Phone Bella Kenny MD Primary Care Provider Libby Mckenna MD Primary Care Provider Juan chaudhary [facility], Pcp Primary Care Provider Jaylinabl e Libby Loera MD Primary Care Provider [facility], Pcp Primary Care Provider Cielo e Reason for Visit * Reason Comments E-prescribe Rx Request Encounter Details Date Type Department Care Team Description 08/03/2018 Refill [address]erm[address] [phone] Vangie Sweeney PA-C E-prescribe Rx Request Social [...] on filedocumented in this encounter Care Teams Greens Tier Relationship Specialty Start Date End Date Bella [...]
--- OUTSIDE RECORDS SUMMARY | 2024-08-07 15:41 | XMS_ITS | Encounter Summary ---
Author Organization [facility] Address [address] [place] [address] Care Team Providers Care Pulp Bleacher Name Role Phone Libby Loera MD Primary Care Provider [facility], Pcp Primary Care Provider Unavailabl e Libby Loera MD Primary Care Provider [facility], Pcp Primary Care Provider Unavailabl e Reason for Visit * Reason Onset Date Comments Faxed Refill 12/08/2020 Encounter Details Date Type Department Care Team Description 12/08/2020 Refill Adult Medicine [address] [address] Sheeba Milian PA-C [address] [place] [address] Faxed Refill Social History Tobacco Use Types [...] often do you attend chur ch or islam services? More than 4 times per year 12/23/2019 Do you belong to any clubs o r organizations such as anglican groups, unions, [facility] or athletic groups, or school groups? No [...] have Coronavirus / COVID-19? No / Unsure 12/08/2020 2:05 PM EDT documented as of this encounter Miscellaneous Notes * Telephone Encounter - Sigrid Bernard M.A. - 12/09/2020 3:52 PM EDT ELEANOR 12/08/2020 F/U appt 03/10/2021 * Telephone Encounter - Jeremiah Lisa - 12/08/2020 2:04 PM EDT Patient would like script to be: E-PRESCRIBED/FAXED TO PHARMACY WHEN WAS THE PATIENT'S LAST APPOINTMENT IN ADULT MEDICINE? 12/08/20 WHEN WAS THE LAST TIME THE PATIENT SAW THEIR PCP? (the patient hasn't met Dr. Libby Loera yet) Does patient have an upcoming appointment? Yes 03/10/21 (THE MEDICATION REQUESTED IS ON THE MED LIST ABOVE) One or some of the medications requested were on the HISTORICAL MED list Did you check the Pharmacy information above?: YES Patient wants: 30 -day supply Is this a mail order prescription request ? NO If the refill is from a FAXED refill request what is the RX # listed on the fax? [id number] Patients current insurance carrier is: [place] / Plan[place] / Product Type: MEDICARE [id number] documented in this encounter Plan of Treatment Not on file documented as of this encounter Visit Diagnoses Not on filedocumented in this encounter Care Teams Pulp Bleacher Relationship Specialty Start Date End Date Libby Loera MD PCP - General Internal Medicine 12/08/20 05/23/21 [facility], Pcp PCP - General Internal Medicine 05/24/21 09/25/21 Libby Loera MD PCP - General Internal Medicine 09/26/21 11/15/21 [facility], Pcp PCP - General Internal Medicine 11/16/21 documented as of this encounter
--- OUTSIDE RECORDS SUMMARY | 2024-08-07 15:41 | XMS_ITS | Encounter Summary ---
Author Organization [facility] Address [address] [place] [address] GAMALIEL ROMO [address] Care Team Providers Care Microfilm Duplicating Unit Supervisor Name Role Phone Bella Kenny MD Primary Care Provider Libby Mckenna MD Primary Care Provider [facility], Pcp Primary Care Provider Libby Silva MD Primary Care Provider [facility], Pcp Primary Care Provider Cielo klein Encounter Details Date Type Department Care Team Description 07/08/2018 Electric Tripper Machine Operator Report Medical Records [address] [place] [address] [place] [address] Abstract, Provider Social History Tobacco Use Types [...] Never 12/23/2019 How often do you attend [facility] or roman catholic services? More than 4 times per year 12/23/2019 Do you belong to any clubs o r organizations such as hindu groups, unions, fraternal or athletic groups, or [...] on filedocumented in this encounter Care Teams Microfilm Duplicating Unit Supervisor Relationship Specialty Start Date End Date [...]
--- OUTSIDE RECORDS SUMMARY | 2024-08-07 15:41 | XMS_ITS | Encounter Summary ---
Author Organization [facility] Address [address] [place] [address] GAMALIEL ROMO [address] Care Team Providers Care Molding Machine Operator Helper Name Role Phone Bella Kenny MD Primary Care Provider Libby Mckenna MD Primary Care Provider [facility], Pcp Primary Care Provider Libby Silva MD [facility] Primary Care Provider Cielo klein Encounter Details Date Type Department Care Team Description 07/22/2018 [facility] Medical Records [address] [place] [address] [place] [address] Abstract, Provider Social History Tobacco Use Types [...] on filedocumented in this encounter Care Teams Molding Machine Operator Helper Relationship Specialty Start Date End Date Bella [...]
--- OUTSIDE RECORDS SUMMARY | 2024-08-07 15:41 | XMS_ITS | Encounter Summary ---
Author Organization [facility] Address [address] [place] [address] GAMALIEL ROMO [address] Care Team Providers Care Director Supplier Quality Name Role Phone Bella Kenny MD Primary Care Provider Libby Mckenna MD Primary Care Provider [facility], Pcp Primary Care Provider Libby Silva MD Primary [facility] Primary Care Provider Cielo klein Encounter Details Date Type Department Care Team Description 02/25/2020 [facility] Medical Records [address] [place], [place] [address] [address] Abstract, Provider Social History Tobacco Use Types [...] often do you attend chur ch or anabaptist services? More than 4 times per year 12/23/2019 Do you belong to any clubs o r organizations such as congregational groups, unions, fraternal or athletic groups, or [...] filedocumented in this encounter Care Teams Director Supplier Quality Relationship Specialty Start Date End Date Bella [...]
--- OUTSIDE RECORDS SUMMARY | 2024-08-07 15:41 | XMS_ITS | Encounter Summary ---
Author Organization [facility] Address [address] [place] [address] GAMALIEL ROMO [address] Care Team Providers Care Android Programmer Name Role Phone Libby Loera MD Primary Care Provider [facility], Pcp Primary Care Provider Unavailabl e Reason for Visit * Reason Comments E-prescribe Rx Request Encounter Details Date Type Department Care Team Description 10/13/2021 Refill Adult Medicine [address] [place] [address] Libby Loera MD E-prescribe Rx Request Social History Tobacco Use Types Packs/Day Years Used Date Smoking Tobacco: Former Cigarettes 0.5 23 Q uit: 02/22/2021 Smokeless Tobacco: Never Alcohol [...] often do you attend chur ch or faith services? More than 4 times per year [...] Telephone Encounter - Sigrid Bernard M.A. - 10/14/2021 1:56 PM EDT ELEANOR 03/10/2021 No F/U appt 30 day supply pending med f/u appt * Telephone Encounter - Lara Gilbert - 10/13/2021 11:25 AM EDT Patient would like script to be: E-PRESCRIBED/FAXED TO PHARMACY WHEN WAS THE PATIENT'S LAST APPOINTMENT IN ADULT MEDICINE? 03/10/21 WHEN WAS THE LAST TIME THE PATIENT SAW THEIR PCP? Never seen pcp Does patient have an upcoming appointment? Line is busy (THE MEDICATION REQUESTED IS ON THE MED [...] / Plan: MEDICARE-[place] / Product Type: MEDICARE [id number] documented in this encounter Plan of Treatment Not on file documented as of this encounter Visit Diagnoses Not on filedocumented in this encounter Care Teams Android Programmer Relationship Specialty Start Date End Date Libby Loera MD PCP - General Internal Medicine 09/26/21 11/15/21 [facility], Pcp PCP - General Internal Medicine 11/16/21 documented as of this encounter
--- OUTSIDE RECORDS SUMMARY | 2024-08-07 15:41 | XMS_ITS | Encounter Summary ---
Author Organization [facility] Address [address] [place] [address] [facility] [address] Care Team Providers Care Offset Printing Pressmen Name Role Phone Bella Kenny MD Primary Care Provider Libby Mckenna MD Primary Care Provider [facility], Pcp Primary Care Provider Unavailabl e Libby Loera MD Primary Care Provider [facility], Pcp Primary Care Provider Cielo e Reason for Visit * Reason Comments E-prescribe Rx Request Encounter Details Date Type Department Care Team Description 06/20/2018 Refill Adult Medicine [address] [address] Bella Kenny MD E-prescribe Rx Request Social [...] How often do you attend chur or oriental orthodox services? More than 4 times per year 12/23/2019 Do you belong to any clubs o r organizations such as quaker groups, unions, fraternal or athletic groups, or [...] / Plan: MEDICARE-[place] / Product Type: MEDICARE [id number] documented in this encounter Plan of Treatment Not on file documented as of this encounter Visit Diagnoses Not on filedocumented in this encounter Care Teams Offset Printing Pressmen Relationship Specialty Start Date End Date Bella [...]
--- OUTSIDE RECORDS SUMMARY | 2024-08-07 15:41 | XMS_ITS | Encounter Summary ---
Author Organization [facility] Address [address] [place] [address] GAMALIEL ROMO [address] Care Team Providers Care Rehabilitation Tech Name Role Phone Libby Loera MD Primary Care Provider [facility], Pcp Primary Care Provider Libby Silva MD Primary Care Provider [facility], Pcp Primary Care Provider Cielo klein Encounter Details Date Type Department Care Team Description 01/27/2021 [facility] Medical Records [address] [place] [address] Abstract, Provider Social History Tobacco Use Types [...] often do you attend chur ch or oriental orthodox services? More than 4 [...] on filedocumented in this encounter Care Teams Rehabilitation Tech Relationship Specialty Start Date End Date Libby Loera MD PCP - General Internal Medicine 12/08/20 05/23/21 [facility], Pcp PCP - General Internal Medicine 05/24/21 09/25/21 Libby Loera MD PCP - General Internal Medicine 09/26/21 11/15/21 [facility], Pcp PCP - General Internal Medicine 11/16/21 documented as of this encounter
--- OUTSIDE RECORDS SUMMARY | 2024-08-07 15:41 | XMS_ITS | Encounter Summary ---
Author Organization [facility] Address [address] [place] [address] GAMALIEL ROMO [address] Care Team Providers Care Steel Burner Name Role Phone Bella Kenny MD Primary Care Provider Libby Mckenna MD Primary Care Provider [facility], Pcp Primary Care Provider Libby Silva MD Primary Care Provider [facility], Pcp Primary Care Provider Cielo klein Encounter Details Date Type Department Care Team Description 03/25/2018 [facility] Report Medical Records [address] [place], [place] [address], [place] [address] Wes Mayer Social History Tobacco Use Types [...] often do you attend chur ch or latter day services? More than 4 times per year [...] on filedocumented in this encounter Care Teams Steel Burner Relationship Specialty Start Date End Date Bella [...]
--- OUTSIDE RECORDS SUMMARY | 2024-08-07 15:41 | XMS_ITS | Encounter Summary ---
Author Organization [facility] Address [address] [facility] GAMALIEL ROMO [address] Care Team Providers Care Medical Imaging Technician Name Role Phone Bella Kenny MD Primary Care Provider Libby Mckenna MD Primary Care Provider [facility], Pcp Primary Care Provider Jaylinabl e Libby Loera MD Primary Care Provider [facility], Pcp Primary Care Provider Cielo e Reason for Visit * Reason Onset Date Comments APPOINTMENT 12/26/2018 Encounter Details Date Type Department Care Team Description 12/26/2018 Telephone [facility] - [address] [phone] Vangie Sweeney PA-C APPOINTMENT Social History Tobacco Use Types Packs/Day Years [...] often do you attend chur ch or quaker services? More than 4 times per year 12/23/2019 Do you belong to any clubs o r organizations such as adventist groups, unions, fraternal or athletic groups, or [...] encounter Miscellaneous Notes * Telephone Encounter - Camille Taylor M.A. - 12/27/2018 10:27 AM EDT Spoke to patient she informed me that rash around eyes is not getting better, burning sensation present, appointment schedule for January 01. * Telephone Encounter - Yokasta Ascencio - 12/26/2018 4:32 PM EDT Patient has a red, itchy rash around her eyes. Vangie's next appointment is not until January 29, but patient asked for a message to be sent to see if Vangie would like her added to her schedule. Please advise. documented in this encounter Plan of Treatment Not on file documented as of this encounter Visit Diagnoses Not on filedocumented in this encounter Care Teams Medical Imaging Technician Relationship Specialty Start Date End Date [...]
--- OUTSIDE RECORDS SUMMARY | 2024-08-07 15:41 | XMS_ITS | Encounter Summary ---
Author Organization [facility] Address [address] [place] [address] GAMALIEL ROMO [address] Care Team Providers Care Helmet Coverer Name Role Phone Bella Kenny MD Primary Care Provider Libby Mckenna MD Primary Care Provider [facility], Pcp Primary Care Provider Libby Silva MD Primary Care Provider [facility], [facility]cp Primary Care Provider Cielo klein Encounter Details Date Type Department Care Team Description 11/21/2017 [facility] Controlled Substance Contract Medical Records [address] [place] [address] [place] [address] Abstract, Provider Social History Tobacco Use Types [...] often do you attend chur ch or anabaptism services? More than 4 times per year [...] on filedocumented in this encounter Care Teams Helmet Coverer Relationship Specialty Start Date End Date Bella [...]
--- OUTSIDE RECORDS SUMMARY | 2024-08-07 15:41 | XMS_ITS | Encounter Summary ---
Author Organization [facility] Address [address] [place] [address] GAMALIEL ROMO [address] Care Team Providers Care Director Nursing Service Name Role Phone Bella Kenny MD Primary Care Provider Libby Mckenna MD Primary Care Provider [facility], Pcp Primary Care Provider Libby Silva MD Primary Care Provider [facility], [facility]cp Primary Care Provider Cielo klein Encounter Details Date Type Department Care Team Description 01/09/2019 [facility] Medical Records [address] [place] [address] [facility] [place] [address] Abstract, Provider Social History Tobacco Use Types [...] often do you attend chur ch or methodist services? More than 4 times per year 12/23/2019 Do you belong to any clubs o r organizations such as yazdanism groups, unions, fraternal or athletic groups, or [...] filedocumented in this encounter Care Teams Director Nursing Service Relationship Specialty Start Date End Date Bella [...]
--- OUTSIDE RECORDS SUMMARY | 2024-08-07 15:41 | XMS_ITS | Encounter Summary ---
Author Organization [facility] Address [address] [place] [address] [place] [address] Care Team Providers Care Grocery Department Manager Name Role Phone Bella Kenny MD Primary Care Provider Libby Mckenna MD Primary Care Provider [facility], Pcp Primary Care Provider Jaylinabl e Libby Loera MD Primary Care Provider [facility]ol[facility]yckoff [facility] center[facility], Pcp Primary Care Provider Cielo e Reason for Visit * Reason Comments E-prescribe Rx Request Encounter Details Date Type Department Care Team Description 05/22/2020 Refill Adult Medicine [address] [address] Bella Kenny MD E-prescribe Rx Request Social [...] How often do you attend chur or mandaeism services? More than 4 times per year 12/23/2019 Do you belong to any clubs o r organizations such as restorationist groups, unions, fraternal or athletic groups, or [...] insurance carrier is: Payor: [place]ARE-[place] / Plan: MEDICARE-[employer] / Product Type: MEDICARE [id number] documented in this encounter Plan of Treatment Not on file documented as of this encounter Visit Diagnoses Not on filedocumented in this encounter Care Teams Grocery Department Manager Relationship Specialty Start Date End Date Bella Kenny MD PCP - General Internal Medicine 08/20/17 12/07/20 Libby Loera MD PCP - General Internal Medicine 12/08/20 05/23/21 [facility], Pcp PCP - General Internal Medicine 05/24/21 09/25/21 Libby Loera MD PCP - General Internal Medicine 09/26/21 11/15/21 [facility], Pcp PCP - General Internal Medicine 11/16/21 documented as of this encounter
--- OUTSIDE RECORDS SUMMARY | 2024-08-07 15:41 | XMS_ITS | Encounter Summary ---
Author Organization [facility] Address [address] [place] [address] [place] [address] Care Team Providers Care Processing Operator Name Role Phone Bella Kenny MD Primary Care Provider Libby Mckenna MD Primary Care Provider [facility], Pcp Primary Care Provider Libby Silva MD Primary Care Provider [facility], [facility]cp Primary Care Provider Cielo klein Encounter Details Date Type Department Care Team Description 08/28/2018 Refill Adult Medicine [address] [address] Bella Kenny MD Social History Tobacco Use [...] often do you attend chur ch or pentecostalism services? More than 4 times per year [...] on filedocumented in this encounter Care Teams Processing Operator Relationship Specialty Start Date End Date [...]
--- OUTSIDE RECORDS SUMMARY | 2024-08-07 15:41 | XMS_ITS | Encounter Summary ---
Author Organization [facility] Address [address] [place] [address] GAMALIEL ROMO [address] Care Team Providers Care Paint Line Operator Name Role Phone Bella Kenny MD Primary Care Provider Libby Mckenna MD Primary Care Provider [facility], Pcp Primary Care Provider Libby Silva MD Primary Care Provider [facility], [facility]cp Primary Care Provider Cielo klein Encounter Details Date Type Department Care Team Description 08/06/2020 Old Medical Records Medical Records [address] [place] [address] [place] [address] Abstract, Provider Social History Tobacco Use Types [...] often do you attend chur ch or jainism services? More than 4 times per year 12/23/2019 Do you belong to any clubs o r organizations such as voodoo groups, unions, fraternal or athletic groups, or [...] on filedocumented in this encounter Care Teams Paint Line Operator Relationship Specialty Start Date End Date [...]
--- OUTSIDE RECORDS SUMMARY | 2024-08-07 15:41 | XMS_ITS | Encounter Summary ---
Author Organization [facility] Address [address] [place] [address] GAMALIEL ROMO [address] Care Team Providers Care Hop Trainer Name Role Phone Libby Loera MD Primary Care Provider [facility], Pcp Primary Care Provider Libby Silva MD Primary Care Provider [facility], Pcp Primary Care Provider Cielo klein Encounter Details Date Type Department Care Team Description 02/16/2021 News Assignment Editor Report Medical Records [address] [place] [address] Jozef Scott Social History Tobacco Use Types Packs/Day Years [...] often do you attend chur ch or yazidi services? More than 4 times [...] on filedocumented in this encounter Care Teams Hop Trainer Relationship Specialty Start Date End Date Libby Loera MD PCP - General Internal Medicine 12/08/20 05/23/21 [facility], Pcp PCP - General Internal Medicine 05/24/21 09/25/21 Libby Loera MD PCP - General Internal Medicine 09/26/21 11/15/21 [facility], Pcp PCP - General Internal Medicine 11/16/21 documented as of this encounter
--- OUTSIDE RECORDS SUMMARY | 2024-08-07 15:41 | XMS_ITS | Clinical Summary ---
Author Organization [facility] Address [address] [facility] GAMALIEL ROMO [address] Care Team Providers Care Media Relations Coordinator Name Role Phone [facility], Pcp Primary Care [...] 4 hours as needed. 0 Active Umeclidinium Rutledge 62.5 MCG/INH AEROSOL POWDER,BREATH ACTIVATED Inhale into the lungs. 0 Active FREESTYLE LANCETS [facility] USE TO CHECK BLOOD SUGAR 1 TIME(S) [...] lung disease 11/06/2017 06/06/2018 Overview: Dr. Mayer, miscellaneous machine operator Latest note 04/2018 - NO COPD but [...] Dementia Mother Diabetes Mother Fibromyalgia Sister 1 Kristen No Known Problems Sister 2 B CA Breast Uncle maternal CA Ovarian Negative Hx [place] Negative Hx Stroke Negative Hx Relation Name [...] any clubs o r organizations such as anabaptist groups, unions, fraternal or athletic groups, or [...] HEPATITIS C SCREENING Completed 05/23/2018 Care Teams Media Relations Coordinator Relationship Specialty Start Date End Date [facility], Pcp PCP - General Internal Medicine 11/16/21
--- OUTSIDE RECORDS SUMMARY | 2024-08-07 15:41 | XMS_ITS | Encounter Summary ---
Author Organization [facility] Address [address] [place] [address] GAMALIEL ROMO [address] Care Team Providers Care Deposit Refund Clerk Name Role Phone Bella Kenny MD Primary Care Provider Libby Mckenna MD Primary Care Provider [facility] hospital[facility], Pcp Primary Care Provider Libby Silva MD Primary Care Provider [facility], [facility]cp Primary Care Provider Cielo klein Encounter Details Date Type Department Care Team Description 03/07/2019 Lecturer In Computer Science Report Medical Records [address] [place] [address] Social History Tobacco Use Types Packs/Day Years [...] often do you attend chur ch or church services? More than 4 times per year 12/23/2019 Do you belong to any clubs o r organizations such as hinduism groups, unions, fraternal or athletic groups, or [...] on filedocumented in this encounter Care Teams Deposit Refund Clerk Relationship Specialty Start Date End Date Bella [...]
--- OUTSIDE RECORDS SUMMARY | 2024-08-07 15:41 | XMS_ITS | Encounter Summary ---
Author Organization [facility] Address [address] [place] [address] [facility] [address] Care Team Providers Care Cyber Crime Investigator Name Role Phone Bella Kenny MD Primary Care Provider Libby Mckenna MD Primary Care Provider [facility], Pcp Primary Care Provider Unavailabl e Libby Loera MD Primary Care Provider [facility], [facility]cp Primary Care Provider Cielo e Reason for Visit * Reason Comments E-prescribe Rx Request Encounter Details Date Type Department Care Team Description 11/24/2018 Refill Adult Medicine [address] [address] Bella Kenny MD E-prescribe Rx Request Social [...] How often do you attend chur or worship services? More than 4 times per year 12/23/2019 Do you belong to any clubs o r organizations such as religion groups, unions, fraternal or athletic groups, or [...] / Plan: [place]ICARE-[place] / Product Type: MEDICARE [id number] documented in this encounter Plan of Treatment Not on file documented as of this encounter Visit Diagnoses Not on filedocumented in this encounter Care Teams Cyber Crime Investigator Relationship Specialty Start Date End Date Bella [...]
--- OUTSIDE RECORDS SUMMARY | 2024-08-07 15:41 | XMS_ITS | Encounter Summary ---
Author Organization [facility] Address [address] [place] [address] [place] [address] Care Team Providers Care Parcel Carrier Name Role Phone Bella Kenny MD Primary Care Provider Libby Mckenna MD Primary Care Provider [facility], Pcp Primary Care Provider Jaylinabl e Libby Loera MD Primary Care Provider Joliemanhattan eye[facility] hospital[facility], Pcp Primary Care Provider Cielo e Reason for Visit * Reason Comments E-prescribe Rx Request Encounter Details Date Type Department Care Team Description 08/25/2019 Refill Adult Medicine [address] [address] Bella Kenny MD E-prescribe Rx Request Social [...] How often do you attend chur or islam services? More than 4 times [...] / Plan: [place]ICARE[place] / Product Type: MEDICARE [id number] * Telephone Encounter - Brooke Chinchilla - [...] insurance carrier is: Payor: [place]ARE-[place] / Plan: MEDICARE-[employer] / Product Type: MEDICARE [id number] documented in this encounter Plan of Treatment Not on file documented as of this encounter Visit Diagnoses Not on filedocumented in this encounter Care Teams Parcel Carrier Relationship Specialty Start Date End Date Bella Kenny MD PCP - General Internal Medicine 08/20/17 12/07/20 Libby Loera MD PCP - General Internal Medicine 12/08/20 05/23/21 [facility], Pcp PCP - General Internal Medicine 05/24/21 09/25/21 Libby Loera MD PCP - General Internal Medicine 09/26/21 11/15/21 [facility], Pcp PCP - General Internal Medicine 11/16/21 documented as of this encounter
--- OUTSIDE RECORDS SUMMARY | 2024-08-07 15:41 | XMS_ITS | Encounter Summary ---
Author Organization [facility] Address [address] [place] [address] GAMALIEL ROMO [address] Care Team Providers Care Otm Consultant Name Role Phone Bella Kenny MD Primary Care Provider Libby Mckenna MD Primary Care Provider [facility], Pcp Primary Care Provider Libby Silva MD Primary Care Provider [facility], Pcp Primary Care Provider Cielo klein Encounter Details Date Type Department Care Team Description 07/27/2020 Data Officer Report Medical Records [address] [place] [address] [place] [address] Abstract, Provider Social History Tobacco Use Types [...] often do you attend chur ch or presybeterian services? More than 4 times per year [...] on filedocumented in this encounter Care Teams Otm Consultant Relationship Specialty Start Date End Date [...]
--- OUTSIDE RECORDS SUMMARY | 2024-08-07 15:41 | XMS_ITS | Encounter Summary ---
Author Organization [facility] Address [address] [place] [address] GAMALIEL ROMO [address] Care Team Providers Care Medical Data Analyst Name Role Phone [facility], Pcp Primary Care Provider Unavailabl e Encounter Details Date Type Department Care Team Description 05/17/2022 Clinical Staff Rn Report Medical Records [address] [place] [address] [facility] [place] [address] Mary Patino NP Social History Tobacco Use Types Packs/Day Years [...] Never 12/23/2019 How often do you attend [facility] or yazidism services? More than 4 times per year 12/23/2019 Do you belong to any clubs o r organizations such as presybeterian groups, unions, fraternal or athletic groups, or [...] filedocumented in this encounter Care Teams Medical Data Analyst Relationship Specialty Start Date End Date [facility], Pcp PCP - General Internal Medicine 11/16/21 documented as of this encounter
--- OUTSIDE RECORDS SUMMARY | 2024-08-07 15:41 | XMS_ITS | Encounter Summary ---
Author Organization [facility] Address [address] [place] [address] GAMALIEL ROMO [address] Care Team Providers Care Outcomes Analyst Name Role Phone Libby Loera MD Primary Care Provider [facility], Pcp Primary Care Provider Libby Silva MD Primary Care Provider [facility], Pcp Primary Care Provider Cielo klein Encounter Details Date Type Department Care Team Description 01/05/2021 Screen Tender Report Medical Records [address] [place] [address] [place] [address] Gastroenterology, [facility] Social History Tobacco Use Types Packs/Day Years [...] Never 12/23/2019 How often do you attend [facility] or christian services? More than 4 times [...] on filedocumented in this encounter Care Teams Outcomes Analyst Relationship Specialty Start Date End Date Libby Loera MD PCP - General Internal Medicine 12/08/20 05/23/21 [facility], Pcp PCP - General Internal Medicine 05/24/21 09/25/21 Libby Loera MD PCP - General Internal Medicine 09/26/21 11/15/21 [facility], Pcp PCP - General Internal Medicine 11/16/21 documented as of this encounter
--- OUTSIDE RECORDS SUMMARY | 2024-08-07 15:42 | XMS_ITS | Encounter Summary ---
Author Organization [facility] Address [address] [place] [address] GAMALIEL ROMO [address] Care Team Providers Care Audio Visual Design Engineer Name Role Phone Bella Kenny MD Primary Care Provider Libby Mckenna MD Primary Care Provider [facility], Pcp Primary Care Provider Libby Silva MD [facility] Primary Care Provider Cielo klein Encounter Details Date Type Department Care Team Description 11/13/2019 Social Work Manager Report Medical Records [address] [place] [address] Gabriela Glass Social History Tobacco Use Types Packs/Day Years [...] often do you attend chur ch or religion services? More than 4 times per year 12/23/2019 Do you belong to any clubs o r organizations such as scientology groups, unions, fraternal or athletic groups, or [...] on filedocumented in this encounter Care Teams Audio Visual Design Engineer Relationship Specialty Start Date End Date Bella [...]
== END 2024-08-07 13:29 | disposition home or self-care (01) ==
PROVIDERS: PCP Physician Assistant; Visit Provider Orthopaedic Surgery
DX: S76.111A Strain of right quadriceps muscle, fascia and tendon, initial encounter (principal)
CPT/HCPCS: 99024

== ENCOUNTER 2024-09-18 13:00 | Outpatient (AMB) | payer OTHER, MEDICARE, MEDICAID, SELFPAY ==
--- NOTE | 2024-09-18 13:06 | MHC.OFFVIS ---
Intake Visit Reasons: PO RT quad tendon repair 06/25/24 NE Intake Note: Leanne is a 59 year old female who presents today for a post operative appointment about 3 months s/p Right Quad Tendon Repair 06/25/24. Hx of right TKA on 05/08/23 NE. At her last visit she was advised to use caution with activity and to not overdo flexion. Patient reports that she is doing well, She continues to hear clunking of the knee. She has mild pain when going up stairs and has not fully relearned going down the stairs. Allergies latex [LATEX] Allergy (Unknown, Verified 09/18/24 13:06) SWELLING HPI HPI PO RT quad tendon repair 06/25/24 NE: Details: Leanne is almost 3 months status post quad tendon repair status post TKA. She is doing very well. She still feels a little tentative going down stairs but otherwise has no complaints. She has full range of motion. [facility] Medical History Hx of vertigo Hiatal hernia Claustrophobia Carpal tunnel syndrome on both sides Numbness Sleep apnea History of cyst of breast Asthma Back pain Osteoarthritis of right knee Mixed hyperlipidemia Type 2 diabetes mellitus without complications Occipital neuralgia Allergic rhinitis Gastro-esophageal reflux disease without esophagitis Depression Bilateral hearing loss DDD (degenerative disc disease), lumbar Anxiety Unspecified asthma, uncomplicated Unspecified osteoarthritis, unspecified site Vitamin D deficiency Degenerative joint disease of knee Chronic pain Chronic right-sided low back pain with sciatica Adenoma Morbid (severe) obesity due to excess calories Surgical History (Updated 07/04/24 @ 00:02 by Olivn Mares) Hx of hand surgery History of excision of pilonidal cyst Hx of laparoscopic gastric banding H/O colonoscopy Status post surgery involving ear History of uvulectomy Hx of section H/O: hysterectomy S/P right knee arthroscopy Social History Household Members: None Housing: Apartment Housing Other:: 2nd floor Are you a primary healthcare customer service to a significant other at home: No Do you presently have visiting nurse or other home services: No Patient Tobacco Use Status: Former Tobacco user Substance Use Type: Marijuana Advance Directives Date on File: 05/11/23 service: No Current occupational status: disabled Physical Exam Extrem Other: Full range motion with well-healed incision right knee. Good quad strength with no palpable defects on resisted knee extension Assessment & Plan Assessment & Plan (1) Rupture of right quadriceps tendon: Code(s): S76.111A - Strain of right quadriceps muscle, fascia and tendon, initial encounter Category: Medical Plan: Versus doing great. Continue activity as tolerated. They follow up in 6 months or as needed but this time no further intervention warranted. Coding Level of Care Code Global (44602) Diagnoses Rupture of right quadriceps tendon S76.111A
--- OUTSIDE RECORDS SUMMARY | 2024-09-18 15:54 | XMS_ITS | Clinical Summary ---
Author Organization Patient Business [facility] Address [address] [place] [address] Care Team Providers Care Industrial Paramedic Name Role Phone Unavailable Primary Care Provider Unavailabl e Surgical History Surgery Date Site/Laterality Comments SECTION PROCEDURE: MA DELIVERY ONLY BREAST BIOPSY PROCEDURE: MA BX BREAST NEEDLE CORE W/O IMAGING GUIDANCE [...] obesity with BMI of 4 0.0-44.9, adult ([facility] V24, [facility] V28) 10/24/2017 DX:Morbid obesity wit h BMI of 40.0-44.9, adult ([facility]) Vitamin D deficiency 11/06/2017 DX:Vitamin D deficiency Chronic obstructive lung dis ease ([facility] V24, [facility] V28) 11/06/2017 DX:Chronic obstructive lung disease (HCC); COMMENT: Dr. Mayer, clock mechanic Asthma 11/06/2017 DX:Asthma Anxiety 11/06/2017 DX:Anxiety Degenerative disc disease, lumbar 11/06/2017 DX:Degenerative disc disease, lumbar; COMMENT: Chiropractor ([facility]) Bilateral hearing loss 11/06/2017 DX:Bilate ral hearing loss Depression 11/06/2017 DX:Depression GERD (gastroesophageal reflux disease) 11/06/2017 DX:GERD (gastroesophageal reflux disease) Allergic rhinitis 11/06/2017 DX:Allergic rh initis Occipital neuralgia 11/06/2017 DX:Occipital neuralgia Type 2 diabetes mellitus wit hout complication ([facility] V24, [facility] V28) 10/24/2017 DX:Type 2 diabetes mellitus without complication ([facility]) Osteoarthritis 11/06/2017 DX:Osteoarthriti s; COMMENT: NEOS-right knee, [...] Sugar Control Test (HGBA1C) 05/20/2022 RSV Immunization Adult Patients (1 - Risk 60-74 years 1-dose series) 2023 COVID-19 Vaccine ( season) 2024 03/16/2021, 08/18/2020, 07/27/2020 Influenza Vaccine (Season Ended) 2025 03/05/2021, 03/04/2021, 02/17/2020, Additional history exists DTaP,Tdap,and Td [...] age to complete this topic Meningococcal B Vaccine Aged Out No l onger eligible based on patient's age to complete this topic RSV Immunization Patients Under 20 months Aged Out No longer eligible based on patient's age to complete this topic Varicella Vaccines Aged Out No longer eligible based on patient's age to complete this topic
== END 2024-09-18 13:31 | disposition home or self-care (01) ==
LOC: HO.HOS 13:01
PROVIDERS: PCP Physician Assistant; Visit Provider Orthopaedic Surgery
DX: S76.111A Strain of right quadriceps muscle, fascia and tendon, initial encounter (principal)
CPT/HCPCS: 99024

== ENCOUNTER 2024-09-19 12:56 | Outpatient (RCR) | payer OTHER, MEDICARE, MEDICAID, SELFPAY ==
--- NOTE | 2024-07-18 15:26 | MHC.PT.EP ---
[facility] [place] Office [place] [facility] [place] [facility] [address] Iman Balderas [address] [phone] F: [phone] F: [phone] F: [phone] F: [phone] Physical Therapy Plan of Care Date of Evaluation: 07/18/24 Date of Surgery: 06/25/24 Diagnosis: RUPTURE OF RIGHT QUADRICEPS TENDON-> S/P Rt QUADRICEPS TENDON REPAIR W COLLAGEN PATCH-> WBAT Rt ; GAIT TRAINING, ROM TOLERATED Assessment: 59 YO FEMALE REF TO PT S/P Rt QUADRICEPS TENDON REPAIR W COLLAGEN PATCH ON 06/25/24. SHE IS REF FOR POST-OP PT, WBAT Rt LE W CRUTCHES. SHE RESIDES ALONE IN A 2ND FLOOR APT AND HAS A H/O Rt TKA IN 05/2023. OBJECTIVELY, SHE HAS DECR ROM Rt KNEE, LIMITED PATELLAR MOB/ SCAR HYPOMOB Rt ANT KNEE, STRENGTH DEFICITS, AND DECR FUNCTIONAL MOB JAMES/ ALTERED GAIT W CRUTCHES. SHE IS A GOOD PT CANDIDATE TO ADDRESS THE ABOVE AND MAXIMIZE FUNCTIONAL INDEPENDENCE. Frequency and Duration: The patient will be seen 2 x WK x 8 WKS Short Term Goals: IMPROVE Rt PATELLAR MOB AND SCAR TISSUE MOB Rt KNEE INCR ROM Rt KNEE (TERMINLA EXT WELL PROGRESSIVE FLEXION) INITIATE HEP IMPROVE GAIT MECH LEVEL AND STAIRS Custodial Goals: Pt INDEP HEP AND SELF-PATELLAR MOBS Pt OBTAIN 0*- 125* RIGHT KNEE Pt DEMON EFFICIENT GAIT MECH ON LEVEL GROUND AND STAIRS Pt INCR FUNCT MOB JAMES/ ADL JAMES EVIDENT W IMPROVED LEFI (AT EVAL 28/80) Rt LE STRENGTH INCR BY 1/2-1 GRADE; SLS Rt x 10 SEC Treatment Plan: Modalities to reduce pain, spasms and effusion. Manual therapy to restore motion and function. Therapeutic exercise to improve strength and flexibility. Neuromuscular re-education for posture and balance. Therapeutic activities to return to functional activities of daily living. Electronically signed by: BERNARDO EARLYPT Please sign and return to therapist. Thank you for your referral.
--- NOTE | 2024-09-19 15:39 | MHC.PT.DC ---
[facility] [place] Office [place] Office [place] Office [address] Iman Balderas [address] [phone] F: [phone] F: [phone] F: [phone] F: [phone] Physical Therapy Discharge Report Diagnosis: RUPTURE OF RIGHT QUADRICEPS TENDON-> S/P Rt QUADRICEPS TENDON REPAIR W COLLAGEN PATCH-> WBAT Rt ; GAIT TRAINING, ROM TOLERATED Date of Surgery: 06/25/24 Date of Evaluation: 07/18/24 Date of Discharge: 09/19/24 Treatments to Date: 13 Cancellations to Date: No Shows to Date: Discharge Status: Achieved Goals Improved Function Independent with HEP Discharge Summary: CONRADO HAS BENEFITTED AND PROGRESSED IN PT S/P Rt QUAD TENDON RUPTURE- SHE HAS MET HER PT GOALS AT THIS TIME, 0*-120* AND IMPROVED STRENGTH- INDEP TRANSFERS, Rt LE SLS 9 SEC, RECIP ASC ON STAIRS AND DESC 1 STEP AT A TOIME DUE TO SOME RESIDUAL ECCENTRIC QUAD WEAKNESS (ALSO H/O Rt TKA). HER LEFI AT DISCHARGE IS 44/80 (AT EVAL 28/80)- SHE HAS RESUMED HER REG ADLs AND CONRADO HAS A THOROUGH, PROGRESSIVE HEP. Electronically signed by: BERNARDO EARLY,PT Please sign and return to therapist. Thank you for your referral.
== END 2024-09-19 15:39 | disposition home or self-care (01) ==
LOC: HO.PT 12:56
PROVIDERS: PCP Physician Assistant
DX: S76.111D Strain of right quadriceps muscle, fascia and tendon, subsequent encounter (principal)
CPT/HCPCS: 95992; 97110; 97116; 97140; 97162; 97530

== ENCOUNTER 2024-10-20 10:36 | Outpatient (REF) | payer MEDICARE, MEDICAID, SELFPAY ==
--- OUTSIDE RECORDS SUMMARY | 2024-10-20 11:15 | XMS_ITS | Encounter Summary ---
Author Organization [facility] Address [address] [place] [address] GAMALIEL ROMO [address] Care Team Providers Care Medical Billing Instructor Name Role Phone Bella Kenny MD Primary Care Provider Libby Mckenna MD Primary Care Provider [facility], Pcp Primary Care Provider Libby Silva MD Primary Care [facility] Primary Care Provider Cielo klein Encounter Details Date Type Department Care Team Description 10/24/2017 Orders Only Adult Medicine [address] [address] Tiago Ocampo MD [address] [place] [address] Encounter for long-term (current) use of medications [...] often do you attend chur ch or sabianist services? More than 4 times per year 12/23/2019 Do you belong to any clubs o r organizations such as scientologist groups, unions, fraternal or athletic groups, or [...] LEVEL NEGATIVE NEGATIVE 10/25/2017 5:01 PM EDT [facility] 10/25/2017 3:44 PM EDT 10/25/2017 3:44 PM EDT Tiago Ocampo MD LAB [facility] [address] [facility] * (ABNORMAL) DRUG OF ABUSE SCREEN (10/25/2017 3:44 PM EDT) AMPHETAMINE, URINE NEGATIVE NEGATIVE 10/25/2017 5:01 PM EDT [facility] BARBITURATES, URINE NEGATIVE NEGATIVE 10/25/2017 5:01 PM EDT [facility] BENZODIAZEPINE, URINE NEGATIVE NEGATIVE 10/25/2017 5:01 PM EDT [facility] COCAINE, URINE NEGATIVE NEGATIVE 10/25/2017 5:01 PM EDT [facility] OPIATES, URINE NEGATIVE NEGATIVE 10/25/2017 5:01 PM T [facility] MARIJUANA(THC), URINE POSITIVE(A) NEGATIVE 10/25/2017 5:01 PM T [facility] Comment: Semi-quantitative urine assay for screening purposes only. Unconfirmed screening results should not be used for non-medical purposes. SENT FOR CONFIRMATION BY ALTERNATE METHOD 10/25/2017 3:44 PM EDT 10/25/2017 3:44 PM EDT Tiago Ocampo MD LAB [facility] [address] [place] [address] * CHG DRUG SCREENING OPIATES 1 OR [...] developed and the performance characteristics determined by [facility]. This confirmation testing has not been cleared or approved by the FDA. The laboratory is regulated under CLIA as qualified to perform high-complexity testing. This test is used for patient testing purposes. It should not be regarded as investigational or for research. Test performed at [facility], [facility] [place], [place] ??[address] ? [phone] Joe Turner MD ??- Director Retirement Oxycodone GCMS Negative ng/mL 10/30/2017 2:06 PM EDT [facility] Oxymorphone GCMS Negative ng/mL 10/31/19 2:06 PM EDT [facility] 10/25/2017 3:44 PM EDT 10/25/2017 3:44 PM EDT Tiago Ocampo MD LAB [facility] documented in this encounter Visit Diagnoses Diagnosis Encounter for long-term (current) use of medications- Primary Encounter for long-term (current) use of other medications documented in this encounter Care Teams Medical Billing Instructor Relationship Specialty Start Date End Date Bella Kenny MD PCP - General Internal Medicine 08/20/17 12/07/20 Libby Loera MD PCP - General Internal Medicine 12/08/20 05/23/21 [facility], Pcp PCP - General Internal Medicine 05/24/21 09/25/21 Libby Loera MD PCP - General Internal Medicine 09/26/21 11/15/21 [facility], Pcp PCP - General Internal Medicine 11/16/21 documented as of this encounter
--- OUTSIDE RECORDS SUMMARY | 2024-10-20 11:15 | XMS_ITS | Encounter Summary ---
Author Organization [facility] Address [address] [place] [address] GAMALIEL ROMO [address] Care Team Providers Care Director Medical Writing Name Role Phone Bella Kenny MD Primary Care Provider Libby Mckenna MD Primary Care Provider [facility]the [facility], Pcp Primary Care Provider Libby Silva MD Primary [facility] Provider [facility] Primary Care Provider Cielo klein Encounter Details Date Type Department Care Team Description 05/14/2018 Communications Equipment Installer Report Medical Records [address] [place], [place] [address] [address] Harini Balderrama Np Social History Tobacco Use Types Packs/Day Years [...] often do you attend chur ch or caodaism services? More than 4 times [...] filedocumented in this encounter Care Teams Director Medical Writing Relationship Specialty Start Date End Date Bella [...]
--- OUTSIDE RECORDS SUMMARY | 2024-10-20 11:15 | XMS_ITS | Clinical Summary ---
Author Organization [facility] Address [address] [facility] GAMALIEL ROMO [address] Care Team Providers Care Tail Board Man Name Role Phone Community, Pcp Primary Care [...] 4 hours as needed. 0 Active Umeclidinium [place] 62.5 MCG/INH AEROSOL POWDER,BREATH ACTIVATED Inhale into the lungs. 0 Active FREESTYLE LANCETS [facility] [place] [facility] [place] CHECK BLOOD SUGAR 1 TIME(S) [...] lung disease 11/06/2017 06/06/2018 Overview: Dr. Mayer, interactive media marketing specialist Latest note 04/2018 - NO COPD but [...] Breast Uncle maternal CA Ovarian Negative Hx [place] Negative Hx Stroke Negative Hx Relation Name [...] often do you attend chur ch or yazidism services? More than 4 times [...] (2022-2 4 season) 2024 03/16/2021, 08/18/2020, 07/27/2020 BMI CHECK/ADVISE 06/04/2024 01/27/2021, 12/2020, 09/07/2020, Additional history exists INFLUENZA (Season Ended) 2025 021, 03/05/2021, 02/17/2020, Additional history exists COLON CANCER SCREENING 02/23/2026 , 02/23/2021 (Completed), 09/04/2014, Additional history exists PNEUMOCOCCAL VACCINE FOR HIG H RISK PATIENTS (#2) 02/08/2028 11/11/2018 DTAP/TDAP/TD (2 - Td or Tdap) 11/11/2028 11/11/2018 HEPATITIS C SCREENING Completed 05/23/2018 Care Teams Tail Board Man Relationship Specialty Start Date End Date [facility], Pcp PCP - General Internal Medicine 11/16/21
--- OUTSIDE RECORDS SUMMARY | 2024-10-20 11:15 | XMS_ITS | Encounter Summary ---
Author Organization [facility] Address [address] [place] [address] GAMALIEL ROMO [address] Care Team Providers Care Elevator Dispatcher Name Role Phone Bella Kenny MD Primary Care Provider Libby Mckenna MD Primary Care Provider [facility], Pcp Primary Care Provider Unavailabl e Libby Loera MD Primary Care [facility] Primary Care Provider Jaylinabl e Reason for Visit * Reason Comments E-prescribe Rx Request Encounter Details Date Type Department Care Team Description 03/13/2019 Refill Adult Medicine [address] [address] Tiago Ocampo MD [address] [place] [id number] E-prescribe Rx Request Social History Tobacco Use [...] How often do you attend chur or temple services? More than 4 times per year 12/23/2019 Do you belong to any clubs o r organizations such as jewish groups, unions, fraternal or athletic groups, or [...] / Plan: [place] / Product Type: MEDICARE [id number] documented in this encounter Plan of Treatment Not on file documented as of this encounter Visit Diagnoses Not on filedocumented in this encounter Care Teams Elevator Dispatcher Relationship Specialty Start Date End Date Bella [...]
--- OUTSIDE RECORDS SUMMARY | 2024-10-20 11:15 | XMS_ITS | Encounter Summary ---
Author Organization [facility] Address [address] [place] [address] [place] [address] Care Team Providers Care Harp Repairer Name Role Phone Bella Kenny MD Primary Care Provider Libby Mckenna MD Primary Care Provider [facility], Pcp Primary Care Provider Jaylinabl e Libby Loera MD Primary Care Provider Jol[facility]yu [facility], Pcp Primary Care Provider Cielo e Reason for Visit * Reason Comments E-prescribe Rx Request Encounter Details Date Type Department Care Team Description 08/25/2019 Refill Adult Medicine [address] [address] Bella Kenny MD E-prescribe Rx Request Social [...] How often do you attend chur or hoahaoism services? More than 4 times per year 12/23/2019 Do you belong to any clubs o r organizations such as pentecostal groups, unions, fraternal or athletic groups, or [...] / Plan: [place] / Product Type: MEDICARE [id number] * Telephone Encounter - Brooke Chinchilla - [...] insurance carrier is: Pay[place] / Plan: [place] / Product Type: MEDICARE [id number] documented in this encounter Plan of Treatment Not on file documented as of this encounter Visit Diagnoses Not on filedocumented in this encounter Care Teams Harp Repairer Relationship Specialty Start Date End Date Bella Kenny MD PCP - General Internal Medicine 08/20/17 12/07/20 Libby Loera MD PCP - General Internal Medicine 12/08/20 05/23/21 [facility], Pcp PCP - General Internal Medicine 05/24/21 09/25/21 Libby Loera MD PCP - General Internal Medicine 09/26/21 11/15/21 [facility], Pcp PCP - General Internal Medicine 11/16/21 documented as of this encounter
--- OUTSIDE RECORDS SUMMARY | 2024-10-20 11:15 | XMS_ITS | Encounter Summary ---
Author Organization [facility] Address [address] [place] [address] GAMALIEL ROMO [address] Care Team Providers Care Acoustical Tile Carpenters Supervisor Name Role Phone Bella Kenny MD Primary Care Provider Libby Mckenna MD Primary Care Provider [facility], Pcp Primary Care Provider Libby Silva MD [facility] Primary Care Provider Cielo klein Encounter Details Date Type Department Care Team Description 02/25/2020 [facility] Medical Records [address] [place], [place] [address] [address] Abstract, Provider Social History Tobacco Use Types [...] often do you attend chur ch or voodoo services? More than 4 times per year [...] on filedocumented in this encounter Care Teams Acoustical Tile Carpenters Supervisor Relationship Specialty Start Date End Date [...]
--- OUTSIDE RECORDS SUMMARY | 2024-10-20 11:15 | XMS_ITS | Encounter Summary ---
Author Organization [facility] Address [address] [place] [address] [place] [address] Care Team Providers Care Dietary Aid Name Role Phone Bella Kenny MD Primary Care Provider Libby Mckenna MD Primary Care Provider [facility], Pcp Primary Care Provider Libby Silva MD Primary [facility], [facility]cp Primary Care Provider Cielo klein Encounter Details Date Type Department Care Team Description 07/26/2020 Hockey Instructor Report Medical Records [address] [place] [address] Lakshmi Marks PA-C Social History Tobacco Use [...] often do you attend chur ch or nondenominational services? More than 4 times per year 12/23/2019 Do you belong to any clubs o r organizations such as gnosticist groups, unions, fraternal or athletic groups, or [...] on filedocumented in this encounter Care Teams Dietary Aid Relationship Specialty Start Date End Date Bella [...]
--- OUTSIDE RECORDS SUMMARY | 2024-10-20 11:15 | XMS_ITS | Encounter Summary ---
Author Organization [facility] Address [address] [place] [address] [place] [address] Care Team Providers Care Fashion Illustrator Name Role Phone Bella Kenny MD Primary Care Provider Libby Mckenna MD Primary Care Provider Hu[facility]aint [facility], Pcp Primary Care Provider Jaylinabl e Libby Loera MD Primary Care Provider Joliemontefiore [facility], Pcp Primary Care Provider Cielo e Reason for Visit * Reason Comments E-prescribe Rx Request Encounter Details Date Type Department Care Team Description 08/11/2019 Refill Adult Medicine [address] [address] Bella Kenny MD E-prescribe Rx Request Social [...] How often do you attend chur or rastafarian services? More than 4 times per year 12/23/2019 Do you belong to any clubs o r organizations such as zoroastrian groups, unions, fraternal or athletic groups, or [...] N/A Patients current insurance carrier is: Payor: MEDICARE[place] / Plan[place] / Product Type: MEDICARE [id number] documented in this encounter Plan of Treatment Not on file documented as of this encounter Visit Diagnoses Not on filedocumented in this encounter Care Teams Fashion Illustrator Relationship Specialty Start Date End Date Bella [...]
--- OUTSIDE RECORDS SUMMARY | 2024-10-20 11:15 | XMS_ITS | Encounter Summary ---
Author Organization [facility] Address [address] [place] [address] GAMALIEL ROMO [address] Care Team Providers Care Handle Turner Name Role Phone Bella Kenny MD Primary Care Provider Libby Mckenna MD Primary Care Provider Juan chaudhary [facility], Pcp Primary Care Provider Jaylinabl e Libby Loera MD Primary Care Provider [facility], Pcp Primary Care Provider Cielo e Reason for Visit * Reason Comments E-prescribe Rx Request Encounter Details Date Type Department Care Team Description 11/24/2018 Refill [address]erm[address] [phone] Vangie Sweeney PA-C E-prescribe Rx Request Social [...] How often do you attend chur or pentecostal services? More than 4 times per year 12/23/2019 Do you belong to any clubs o r organizations such as gnosticism groups, unions, fraternal or athletic groups, or [...] on filedocumented in this encounter Care Teams Handle Turner Relationship Specialty Start Date End Date Bella [...]
--- OUTSIDE RECORDS SUMMARY | 2024-10-20 11:15 | XMS_ITS | Encounter Summary ---
Author Organization [facility] Address [address] [place] [address] GAMALIEL ROMO [address] Care Team Providers Care Carton Repairer Name Role Phone Bella Kenny MD Primary Care Provider Libby Mckenna MD Primary Care Provider [facility], Pcp Primary Care Provider Libby Silva MD Primary Care Provider [facility], Pcp Primary Care Provider Cielo klein Encounter Details Date Type Department Care Team Description 06/17/2018 Transfer Records Medical Records [address] [place] [address] Social History Tobacco Use Types Packs/Day Years [...] Never 12/23/2019 How often do you attend [facility] or buddhist services? More than 4 times per year 12/23/2019 Do you belong to any clubs o r organizations such as anabaptism groups, unions, fraternal or athletic groups, or [...] on filedocumented in this encounter Care Teams Carton Repairer Relationship Specialty Start Date End Date [...]
--- OUTSIDE RECORDS SUMMARY | 2024-10-20 11:15 | XMS_ITS | Encounter Summary ---
Author Organization [facility] Address [address] [place] [address] GAMALIEL ROMO [address] Care Team Providers Care Specification Consultant Name Role Phone Libby Loera MD Primary [facility] Provider [facility], Pcp Primary Care Provider Libby Silva MD Primary Care Provider [facility], Pcp Primary Care Provider Cielo klein Encounter Details Date Type Department Care Team Description 02/01/2021 Release of Information Medical Records [address] [place] [id number] Abstract, Provider Social History Tobacco Use Types [...] often do you attend chur ch or orthodoxy services? More than 4 times per year 12/23/2019 Do you belong to any clubs o r organizations such as episcopal groups, unions, fraternal or athletic groups, or [...] on filedocumented in this encounter Care Teams Specification Consultant Relationship Specialty Start Date End Date Libby Loera MD PCP - General Internal Medicine 12/08/20 05/23/21 [facility], Pcp PCP - General Internal Medicine 05/24/21 09/25/21 Libby Loera MD PCP - General Internal Medicine 09/26/21 11/15/21 [facility], Pcp PCP - General Internal Medicine 11/16/21 documented as of this encounter
--- OUTSIDE RECORDS SUMMARY | 2024-10-20 11:15 | XMS_ITS | Encounter Summary ---
Author Organization [facility] Address [address] [facility] [place] [facility] [place] [address] Care Team Providers Care Survey Analyst Name Role Phone Bella Kenny MD Primary Care Provider Libby Mckenna MD Primary Care Provider [facility], Pcp Primary Care Provider Unavailabl e Libby Loera MD Primary Care [facility] Primary Care Provider Unavailabl e Reason for Visit * Reason Onset Date Comments Special Procedure 09/02/2020 Encounter Details Date Type Department Care Team Description 09/02/2020 Telephone Gastroenterology - [address] [place] [address] Claudia Jean-Baptiste MD [address] [place] [id number] Special Procedure Social History Tobacco Use Types Packs/Day Years [...] How often do you attend chur or pentecostalism services? More than 4 times per year 12/23/2019 Do you belong to any clubs o r organizations such as congregational groups, unions, fraCellrox or athletic groups, or school groups? No [...] encounter Miscellaneous Notes * Telephone Encounter - Kasandra Leon - 09/02/2020 1:49 PM EDT Left message to schedule screening colon with anyone documented in this encounter Plan of Treatment Not on file documented as of this encounter Visit Diagnoses Not on filedocumented in this encounter Care Teams Survey Analyst Relationship Specialty Start Date End Date Bella [...]
--- OUTSIDE RECORDS SUMMARY | 2024-10-20 11:15 | XMS_ITS | Encounter Summary ---
Author Organization [facility] Address [address] [place] [address] [place] [address] Care Team Providers Care Regulatory Scientist Name Role Phone Bella Kenny MD Primary Care Provider Libby Mckenna MD Primary Care Provider [facility], Pcp Primary Care Provider Libby Silva MD [facility] Primary Care Provider Cielo klein Encounter Details Date Type Department Care Team Description 09/06/2020 Miter Saw Operator Report Medical Records [address] [place] [id number] Lakshmi Marks PA-C Social History Tobacco Use [...] any clubs o r organizations such as sikhism groups, unions, fraternal or athletic groups, or [...] have Coronavirus / COVID-19? No / Unsure 09/07/2020 10:56 AM EDT documented as of this encounter Plan of Treatment Not on file documented as of this encounter Visit Diagnoses Not on filedocumented in this encounter Care Teams Regulatory Scientist Relationship Specialty Start Date End Date Bella [...]
--- OUTSIDE RECORDS SUMMARY | 2024-10-20 11:15 | XMS_ITS | Encounter Summary ---
Author Organization [facility] Address [address] [place] [address] GAMALIEL ROMO [address] Care Team Providers Care Fast Food Shift Lead Name Role Phone Bella Kenny MD Primary Care Provider Libby Mckenna MD Primary Care Provider [facility], Pcp Primary Care Provider Libby Silva MD [facility] Primary Care Provider Cielo klein Encounter Details Date Type Department Care Team Description 03/25/2018 Jigger Operator Report Medical Records [address] [place], [place] [address], [place] [address] Wes Mayer Social History Tobacco Use Types [...] often do you attend chur ch or judaism services? More than 4 times per year 12/23/2019 Do you belong to any clubs o r organizations such as samaritan groups, unions, fraternal or athletic groups, or [...] on filedocumented in this encounter Care Teams Fast Food Shift Lead Relationship Specialty Start Date End Date Bella [...]
--- OUTSIDE RECORDS SUMMARY | 2024-10-20 11:15 | XMS_ITS | Encounter Summary ---
Author Organization [facility] Address [address] [place] [address] GAMALIEL ROMO [address] Care Team Providers Care Optical Effects Layout Person Name Role Phone Bella Kenny MD Primary Care Provider Libby Mckenna MD Primary Care Provider [facility], Pcp Primary Care Provider Libby Silva MD Primary [facility], [facility] Primary Care Provider Cielo klein Encounter Details Date Type Department Care Team Description 01/09/2019 [facility] Medical Records [address] [place] [address] [facility] [place] [place] [address] Abstract, Provider Social History Tobacco Use Types [...] often do you attend chur ch or worship services? More than 4 times [...] on filedocumented in this encounter Care Teams Optical Effects Layout Person Relationship Specialty Start Date End Date Bella [...]
--- OUTSIDE RECORDS SUMMARY | 2024-10-20 11:15 | XMS_ITS | Encounter Summary ---
Author Organization [facility] Address [address] [place] [address] GAMALIEL ROMO [address] Care Team Providers Care Patient Partner Name Role Phone Bella Kenny MD Primary Care Provider Libby Mckenna MD Primary Care Provider [facility], Pcp Primary Care Provider Libby Silva MD Primary Care [facility] Primary Care Provider Cielo klein Encounter Details Date Type Department Care Team Description 07/27/2020 High School Special Education Teacher Report Medical Records [address] [place] [address] [place] [address] Abstract, Provider Social History Tobacco Use Types [...] often do you attend chur ch or baptist services? More than 4 times per year [...] on filedocumented in this encounter Care Teams Patient Partner Relationship Specialty Start Date End Date Bella [...]
--- OUTSIDE RECORDS SUMMARY | 2024-10-20 11:15 | XMS_ITS | Encounter Summary ---
Author Organization [facility] Address [address] [place] [address] [place] [address] Care Team Providers Care Tobacco Blender Name Role Phone Bella Kenny MD Primary Care Provider Libby Mckenna MD Primary Care Provider [facility], [facility] Primary Care Provider Libby Silva MD Primary [facility], [facility] Primary Care Provider Cielo klein Encounter Details Date Type Department Care Team Description 11/12/2019 Tent Finisher Report Medical Records [address] [place] [address] Lakshmi Marks PA-C Social History Tobacco Use [...] often do you attend chur ch or yarsani services? More than 4 times per year 12/23/2019 Do you belong to any clubs o r organizations such as roman catholic groups, unions, fraternal or athletic groups, or [...] on filedocumented in this encounter Care Teams Tobacco Blender Relationship Specialty Start Date End Date Bella [...]
--- OUTSIDE RECORDS SUMMARY | 2024-10-20 11:15 | XMS_ITS | Encounter Summary ---
Author Organization [facility] Address [address] [place] [address] GAMALIEL ROMO [address] Care Team Providers Care Solar Energy Installation Manager Name Role Phone Bella Kenny MD Primary Care Provider Libby Mckenna MD Primary Care Provider Jaun chaudhary [facility], Pcp Primary Care Provider Jaylinabl e Libby Loera MD Primary Care Provider [facility], Pcp Primary Care Provider Cielo e Reason for Visit * Reason Comments E-prescribe Rx Request Encounter Details Date Type Department Care Team Description 08/03/[address] [phone] Vangie Sweeney PA-C E-prescribe Rx Request Social [...] How often do you attend chur or rastafari services? More than 4 times per year 12/23/2019 Do you belong to any clubs o r organizations such as taoism groups, unions, fraternal or athletic groups, or [...] on filedocumented in this encounter Care Teams Solar Energy Installation Manager Relationship Specialty Start Date End Date [...]
--- OUTSIDE RECORDS SUMMARY | 2024-10-20 11:15 | XMS_ITS | Encounter Summary ---
Author Organization [facility] Address [address] [place] [address] GAMALIEL ROMO [address] Care Team Providers Care Plate Straightener Name Role Phone Bella Kenny MD Primary Care Provider Libby Mckenna MD Primary Care Provider [facility], Pcp Primary Care Provider Libby Silva MD [facility] Primary Care Provider Cielo klein Encounter Details Date Type Department Care Team Description 07/08/2019 Dry Cleaning Attendant Report Medical Records [address] [place], [place] [address] [address] Abstract, Provider Social History Tobacco Use Types [...] often do you attend chur ch or mormon services? More than 4 times per year [...] on filedocumented in this encounter Care Teams Plate Straightener Relationship Specialty Start Date End Date Bella [...]
--- OUTSIDE RECORDS SUMMARY | 2024-10-20 11:15 | XMS_ITS | Encounter Summary ---
Author Organization [facility] Address [address] [place] [address] [place] [address] Care Team Providers Care Vp Construction Name Role Phone Bella Kenny MD Primary Care Provider Libby Mckenna MD Primary Care Provider [facility], Pcp Primary Care Provider Libby Silva MD Primary Care [facility], [facility]cp Primary Care Provider Cielo klein Encounter Details Date Type Department Care Team Description 12/29/2019 Backing In Machine Tender Report Medical Records [address] [place] [address] Lakshmi Marks PA-C Social History Tobacco Use [...] often do you attend chur ch or taoism services? More than 4 times [...] on filedocumented in this encounter Care Teams Vp Construction Relationship Specialty Start Date End Date Bella [...]
--- OUTSIDE RECORDS SUMMARY | 2024-10-20 11:15 | XMS_ITS | Encounter Summary ---
Author Organization [facility] Address [address] [place] [address] GAMALIEL ROMO [address] Care Team Providers Care Advertising Rep Name Role Phone Libby Loera MD Primary Care Provider [facility], Pcp Primary Care Provider Libby Silva MD Primary Care Provider [facility], Pcp Primary Care Provider Cielo klein Encounter Details Date Type Department Care Team Description 02/16/2021 Cost Accounting Manager Report Medical Records [address] [place] [address] Jozef Scott Social History Tobacco Use Types [...] often do you attend chur ch or muslim services? More than 4 times per year [...] on filedocumented in this encounter Care Teams Advertising Rep Relationship Specialty Start Date End Date Libby Loera MD PCP - General Internal Medicine 12/08/20 05/23/21 [facility], Pcp PCP - General Internal Medicine 05/24/21 09/25/21 Libby Loera MD PCP - General Internal Medicine 09/26/21 11/15/21 [facility], Pcp PCP - General Internal Medicine 11/16/21 documented as of this encounter
--- OUTSIDE RECORDS SUMMARY | 2024-10-20 11:15 | XMS_ITS | Encounter Summary ---
Author Organization [facility] Address [address] [place] [address] [place] [address] Care Team Providers Care Student Specialist Name Role Phone Bella Kenny MD Primary Care Provider Libby Mckenna MD Primary Care Provider [facility], Pcp Primary Care Provider Jaylinabl e Libby Loera MD Primary Care Provider [facility], Pcp Primary Care Provider Cielo e Reason for Visit * Reason Comments E-prescribe Rx Request Encounter Details Date Type Department Care Team Description 05/22/2020 Refill Adult Medicine [address] [address] Bella Kenny MD E-prescribe Rx Request Social [...] How often do you attend chur or voodoo services? More than 4 times per year 12/23/2019 Do you belong to any clubs o r organizations such as adventism groups, unions, fraternal or athletic groups, or [...] insurance carrier is: [place] / Plan: MEDICARE-[employer] / Product Type: MEDICARE [id number] documented in this encounter Plan of Treatment Not on file documented as of this encounter Visit Diagnoses Not on filedocumented in this encounter Care Teams Student Specialist Relationship Specialty Start Date End Date Bella Kenny MD PCP - General Internal Medicine 08/20/17 12/07/20 Libby Loera MD PCP - General Internal Medicine 12/08/20 05/23/21 [facility], Pcp PCP - General Internal Medicine 05/24/21 09/25/21 Libby Loera MD PCP - General Internal Medicine 09/26/21 11/15/21 [facility], Pcp PCP - General Internal Medicine 11/16/21 documented as of this encounter
--- OUTSIDE RECORDS SUMMARY | 2024-10-20 11:15 | XMS_ITS | Encounter Summary ---
Author Organization [facility] Address [address] [place] [address] GAMALIEL ROMO [address] Care Team Providers Care Third Grade Teacher Name Role Phone Bella Kenny MD Primary Care Provider Libby Mckenna MD Primary Care Provider [facility], Pcp Primary Care Provider Libby Silva MD Primary Care Provider [facility], Pcp Primary Care Provider Cielo klein Encounter Details Date Type Department Care Team Description 10/26/2017 Release of Information Medical Records [address] [place] [address] GAMALIEL ROMO [address] Abstract, Provider Social History Tobacco Use Types [...] Never 12/23/2019 How often do you attend [facility] or synagogue services? More than 4 times per year 12/23/2019 Do you belong to any clubs o r organizations such as congregation groups, unions, fraternal or athletic groups, or [...] on filedocumented in this encounter Care Teams Third Grade Teacher Relationship Specialty Start Date End Date Bella [...]
--- OUTSIDE RECORDS SUMMARY | 2024-10-20 11:16 | XMS_ITS | Clinical Summary ---
Author Organization [facility] Address [address] [place] [address] Care Team Providers Care Pattern Chain Maker Supervisor Name Role Phone Unavailable Primary Care Provider Unavailabl e Surgical History Surgery Date Site/Laterality Comments SECTION PROCEDURE: AR DELIVERY ONLY BREAST BIOPSY PROCEDURE: AR BX BREAST NEEDLE CORE W/O IMAGING GUIDANCE [...] obesity with BMI of 4 0.0-44.9, adult ([facility] V24, [facility] V28) 10/24/2017 DX:Morbid obesity wit h BMI of 40.0-44.9, adult ([facility]) Vitamin D deficiency 11/06/2017 DX:Vitamin D deficiency Chronic obstructive lung dis ease ([facility] V24, [facility] V28) 11/06/2017 DX:Chronic obstructive lung disease (HCC); COMMENT: Dr. Mayer, arboriculturist Asthma 11/06/2017 DX:Asthma Anxiety 11/06/2017 DX:Anxiety Degenerative disc disease, lumbar 11/06/2017 DX:Degenerative disc disease, lumbar; COMMENT: Chiropractor ([facility]) Bilateral hearing loss 11/06/2017 DX:Bilate ral hearing loss Depression 11/06/2017 DX:Depression GERD (gastroesophageal reflux disease) 11/06/2017 DX:GERD (gastroesophageal reflux disease) Allergic rhinitis 11/06/2017 DX:Allergic rh initis Occipital neuralgia 11/06/2017 DX:Occipital neuralgia Type 2 diabetes mellitus wit hout complication ([facility] V24, [facility] V28) 10/24/2017 DX:Type 2 diabetes mellitus without complication ([facility]) Osteoarthritis 11/06/2017 DX:Osteoarthriti s; COMMENT: NEOS-right knee, [...]
--- OUTSIDE RECORDS SUMMARY | 2024-10-20 11:16 | XMS_ITS | Encounter Summary ---
Author Organization [facility] Address [address] [place] [address] GAMALIEL ROMO [address] Care Team Providers Care Ham Curer Name Role Phone Bella Kenny MD Primary Care Provider Libby Mckenna MD Primary Care Provider [facility], Pcp Primary Care Provider Libby Silva MD Primary [facility] Primary Care Provider Cielo klein Encounter Details Date Type Department Care Team Description 11/13/2019 Rn Lab Report Medical Records [address] [place] [id number] Gabriela Glass Social History Tobacco Use Types [...] often do you attend chur ch or uatsdin services? More than 4 times per year [...] on filedocumented in this encounter Care Teams Ham Curer Relationship Specialty Start Date End Date Bella [...]
== END 2024-10-20 10:37 | disposition home or self-care (01) ==
LOC: HO.SH 10:36
PROVIDERS: Visit Provider Physician Assistant
DX: H90.0 Conductive hearing loss, bilateral (principal); Z01.118 Encounter for examination of ears and hearing with other abnormal findings
CPT/HCPCS: 92557; 92567